=== PATIENT | male | born 1975 | race Caucasian/White ===

== ENCOUNTER 2018-12-20 05:33 | Emergency (ER) | payer OTHER ==
[2018-12-20] MEDS ORDERED: IBUPROFEN 600 MG TAB PO STA (06:18)
[2018-12-20] MEDS ORDERED: amLODIPine 5 MG TAB PO STA (06:20)
[2018-12-20] MEDS: HYDROcodone/APAP 5-325MG 1 EACH TAB PO STA ×2 (06:27→06:32)
[2018-12-20] MEDS ORDERED: LABETALOL SYRINGE 5 MG/ML IVP STA ×2 (07:18→11:04)
--- NOTE | 2018-12-20 07:24 | ED ---
ENT HPI - General Chief complaint: ENT Stated complaint: ENT Time Seen by Provider: 12/20/18 07:08 Source: patient, RN notes reviewed Mode of arrival: ambulatory Limitations: no limitations - History of Present Illness Initial comments: This a 43-year-old male presents emergency Department with chief complaint of right ear pain, bleeding. Patient states that he's had some pressure last few days in the ER states that he goes is from [facility]ERGIES. Patient states he woke up around 2 AM this morning states he noticed some popping sensation states that it started draining. Patient states that it was clear first and then bloody. Patient states it still drinking. Patient still complains of pressure deep inside his right ear. Patient reports no fevers or chills. Patient tells found to be hypertensive states that he used to be on Lotrel states he has not taken medication 2 months. Patient states his blood pressure is more elevated because his white count syndrome and has been taking mdkm-fvk-fqjtipn decongestants. Patient denies chest pain or shortness of breath. Patient denies any abdominal discomfort, back pain. Patient did not take anything for the discomfort at this time. Patient denies any prior sinus or ear surgery. - Related Data Home Medications Medication Instructions Recorded Confirmed [id number] 1 tab PO DAILY 12/20/18 12/20/18 [Excedrin] Loratadine [Claritin] 10 mg PO DAILY 12/20/18 12/20/18 Multi-Symptom Cold (Unknown) 15 ml PO Q8HR 12/20/18 12/20/18 guaiFENesin [Mucinex] 1,200 mg PO BID 12/20/18 12/20/18 Previous Rx's Medication Instructions Recorded Cephalexin [Keflex] 500 mg PO Q6HR #28 cap 12/20/18 Lisinopril 20 mg PO DAILY #30 tab 12/20/18 Allergies Allergy/AdvReac Type Severity Reaction Status Date / Time Penicillins Allergy Unknown Verified 12/20/18 07:44 Childhood Review of Systems ROS Statement: Those systems with pertinent positive or pertinent negative responses have been documented in the HPI. ROS Other: All systems not noted in ROS Statement are negative. Past Medical History Past Medical History: Hypertension History of Any Multi-Drug Resistant Organisms: None Reported Past Surgical History: Hernia Repair Past Psychological History: No Psychological Hx Reported Smoking Status: Never smoker Past Alcohol Use History: None Reported Past Drug Use History: None Reported General Exam Limitations: no limitations General appearance: alert, in no apparent distress Head exam: Present: atraumatic, normocephalic, normal inspection Eye exam: Present: normal appearance, PERRL, EOMI. Absent: scleral icterus, conjunctival injection, periorbital swelling ENT exam: Present: normal oropharynx, mucous membranes moist, normal external ear exam, other (Tenderness diffusely around the ear). Absent: TM's normal bilaterally (Bloody tinged right TM with what appears to be a small perforation) Neck exam: Present: normal inspection, full ROM. Absent: tenderness, meningismus, lymphadenopathy Respiratory exam: Present: normal lung sounds bilaterally. Absent: respiratory distress, wheezes, rales, rhonchi, stridor Cardiovascular Exam: Present: regular rate, normal rhythm, normal heart sounds. Absent: systolic murmur, diastolic murmur, rubs, gallop, clicks GI/Abdominal exam: Present: soft, normal bowel sounds. Absent: distended, tenderness, guarding, rebound, rigid Neurological exam: Present: alert, oriented X3, CN II-XII intact Skin exam: Present: warm, dry, intact, normal color. Absent: rash Course Vital Signs 12/20/18 12/20/18 12/20/18 05:38 05:51 06:00 Temperature 98.5 F Pulse Rate 108 H Respiratory 18 Rate Blood Pressure 259/155 242/155 O2 Sat by Pulse 99 97 96 Oximetry 12/20/18 12/20/18 12/20/18 06:15 06:30 06:45 Temperature Pulse Rate Respiratory Rate Blood Pressure 242/155 242/157 242/157 O2 Sat by Pulse 97 Oximetry 12/20/18 12/20/18 12/20/18 07:00 07:09 07:15 Temperature Pulse Rate Respiratory Rate Blood Pressure 248/148 245/155 250/161 O2 Sat by Pulse Oximetry 12/20/18 12/20/18 12/20/18 07:34 08:45 09:00 Temperature Pulse Rate 89 Respiratory 18 Rate Blood Pressure 242/153 226/146 226/146 O2 Sat by Pulse 100 98 94 L Oximetry 12/20/18 12/20/18 12/20/18 10:30 11:00 11:35 Temperature Pulse Rate 100 95 Respiratory 18 18 Rate Blood Pressure 211/137 211/129 207/138 O2 Sat by Pulse 96 94 L 98 Oximetry Medical Decision Making - Medical Decision Making 43-year-old male presents emergency from for right ear pain. Patient has a ruptured TM, there is evidence of a cholesteatoma. Patient will be started on eardrops, antibiotics. Patient is requesting history antibiotics as he has no current insurance. Patient is an ALLERGY to penicillin started on Keflex. Patient also was found to be hypertensive 260/116. Patient was given multiple medications for his blood pressure which has mildly improved he has no complaints at this time. I did recommend patient to be admitted to the hospital because of his blood pressure. Patient declined states that he wants to go home because he believes this is due to whitecoat syndrome. Patient was given Ativan which did mildly help his blood pressure also. Patient understands the risk that this of his blood pressure being elevated that it can lead to stroke or AR or other health issues including renal disease patient advised to follow- up with PCP and will monitor blood pressure at home. - Lab Data Result diagrams: 12/20/18 07:45 12/20/18 07:45 Lab Results 12/20/18 12/20/18 12/20/18 Range/Units 07:45 07:45 07:45 WBC 11.1 H (3.8-10.6) k/uL RBC 5.96 H (4.30-5.90) m/uL Hgb 16.6 (13.0-17.5) gm/dL Hct 49.6 (39.0-53.0) % MCV 83.1 (80.0-100.0) fL MCH 27.8 (25.0-35.0) pg MCHC 33.4 (31.0-37.0) g/dL RDW 14.8 (11.5-15.5) % Plt Count 187 (150-450) k/uL Neutrophils % 85 % Lymphocytes % 8 % Monocytes % 5 % Eosinophils % 0 % Basophils % 0 % Neutrophils # 9.5 H (1.3-7.7) k/uL Lymphocytes # 0.9 L (1.0-4.8) k/uL Monocytes # 0.6 (0-1.0) k/uL Eosinophils # 0.0 (0-0.7) k/uL Basophils # 0.0 (0-0.2) k/uL Sodium 142 (137-145) mmol/L Potassium 4.2 (3.5-5.1) mmol/L Chloride 101 (98-107) mmol/L Carbon Dioxide 30 (22-30) mmol/L Anion Gap 11 mmol/L BUN 16 (9-20) mg/dL Creatinine 0.90 (0.66-1.25) mg/dL Est GFR (CKD-EPI)AfAm >90 (>60 ml/min/1.73 sqM) Est GFR (CKD-EPI)NonAf >90 (>60 ml/min/1.73 sqM) Glucose 162 H (74-99) mg/dL Calcium 9.4 (8.4-10.2) mg/dL Total Bilirubin 0.7 (0.2-1.3) mg/dL AST 32 (17-59) U/L ALT 44 (21-72) U/L Alkaline Phosphatase 141 H (38-126) U/L Troponin I <0.012 (0.000-0.034) ng/mL Total Protein 8.0 (6.3-8.2) g/dL Albumin 4.9 (3.5-5.0) g/dL Disposition Clinical Impression: Otitis media, serous, TM rupture, Hypertensive urgency Disposition: HOME SELF-CARE Instructions (If sedation given, give patient instructions): Ruptured Eardrum (ED), Hypertensive Crisis (ED) Additional Instructions: Please return to the Emergency Department if symptoms worsen or any other concerns. Prescriptions: Cephalexin [Keflex] 500 mg PO Q6HR #28 cap Lisinopril 20 mg PO DAILY #30 tab Is patient prescribed a controlled substance at d/c from ED?: No Referrals: Jose Akbar MD [Primary Care Provider] - 1-2 days Time of Disposition: 12:22
[2018-12-20 08:14] LABS: Basophils % (A) 0 %; Eosinophils % (A) 0 %; HCT 49.6 % (39.0-53.0); HGB 16.6 gm/dL (13.0-17.5); Lymphocytes # (A) 0.9 k/uL (1.0-4.8); Lymphocytes % (A) 8 %; MCH 27.8 pg (25.0-35.0); MCHC 33.4 g/dL (31.0-37.0); MCV 83.1 fL (80.0-100.0); Mean Platelet Volume 7.1; Monocytes # (A) 0.6 k/uL (0-1.0); Monocytes % (A) 5 %; Neutrophils # (A) 9.5 k/uL (1.3-7.7); Neutrophils % (A) 85 %; Platelet Count 187 k/uL (150-450); RBC 5.96 m/uL (4.30-5.90); RDW 14.8 % (11.5-15.5); WBC 11.1 k/uL (3.8-10.6)
[2018-12-20 08:31] LABS: ALT 44 U/L (21-72); AST 32 U/L (17-59); African American GFR (CKD) >90 (>60 ml/min/1.73 sqM); Albumin 4.9 g/dL (3.5-5.0); Alkaline Phosphatase 141 U/L (38-126); Anion Gap 11 mmol/L; Blood Urea Nitrogen 16 mg/dL (9-20); Calcium 9.4 mg/dL (8.4-10.2); Carbon Dioxide 30 mmol/L (22-30); Chloride 101 mmol/L (98-107); Glucose 162 mg/dL (74-99); Potassium 4.2 mmol/L (3.5-5.1); Sodium 142 mmol/L (137-145); Total Bilirubin 0.7 mg/dL (0.2-1.3)
--- NOTE | 2018-12-20 08:32 | CT ---
EXAMINATION TYPE: CT iac wo con DATE OF EXAM: 12/20/2018 COMPARISON: None HISTORY: 43-year-old male prior fullness, rule out mass. Ear Pain and Bleeding CT DLP: 194 mGycm Automated exposure control for dose reduction was used. TECHNIQUE: Contiguous high-resolution axial scanning of the temporal bones performed without IV cont rast. Coronal reformatted images obtained. FINDINGS: Thin section CT technique shows no gross abnormality of the visualized intracranial structures. Asses sment is limited due to the thin section technique. The external auditory canals are patent. There is complete opacification of the right mesotympanum and infra tympanum. Opacification encases the incus and stapes and the handle of the malleus. Some contiguous opacification extends to involve the adjacent pneumatized petrous apex anteriorly. Bu t otherwise, the left middle ear cavity and bilateral mastoid air cells are well pneumatized. No ossicular erosion. No blunting of the scutum. Opacification extends to the right horizontal portio n of the facial nerve canal. There is no abnormality of bony labyrinths. The vestibular aqueduct are well visualized. The internal auditory canal and meati are symmetrical bilaterally. There is no evidence of fractures. Scattered trace mucosal thickening ethmoid air cells and maxillary sinuses. Reformatted images confirm above findings. IMPRESSION: Complete opacification of the right mesotympanum and infratemporal with encasement of most of the mid dle ear ossicles. No ossicular erosions. There is small amount of contiguous opacification of the adj acent anteriorly pneumatized petrous apex. Correlate for possible etiologies including otitis median cholesteatoma. Otoscopy may be helpful.
[2018-12-20] MEDS ORDERED: hydrALAZINE HCL 20 MG/ML 1 ML VIAL IVP STA (08:50)
[2018-12-20] MEDS ORDERED: LORazepam 2 MG/ML INJ IV STA (10:18)
[2018-12-20] MEDS ORDERED: OFLOXACIN 0.3% OPHTH DROPS 5 ML BOTTLE RIGHT EAR STA (10:18)
[2018-12-20] MEDS ORDERED: SODIUM CHLORIDE 0.9% 500 ML 500 ML IV ONE (11:04)
[2018-12-20 13:01] VITALS: BP 190/92; PULSE 89; RESP 16; TEMP 98.7
== END 2018-12-20 12:59 | disposition home or self-care (01) ==
LOC: EC 05:33
DX: I16.0 Hypertensive urgency (principal); H65.91 Unspecified nonsuppurative otitis media, right ear; H72.91 Unspecified perforation of tympanic membrane, right ear; H71.11 Cholesteatoma of tympanum, right ear; Z88.0 Allergy status to penicillin; Z79.82 Long term (current) use of aspirin; Z79.899 Other long term (current) drug therapy
CPT/HCPCS: 36415; 80053; 84484; 85025; 70480; 99284; 96374; 96375 ×2; 96376; 96361; J2060; J0360

== ENCOUNTER 2020-07-15 02:50 | Emergency (ER) | payer OTHER ==
[2020-07-15] MEDS ORDERED: SODIUM CHLORIDE 0.9% 1,000 ML IV STA ×2 (02:54→03:57)
[2020-07-15] MEDS ORDERED: LABETALOL 5 MG/ML VIAL MDV IVP STA (02:54)
[2020-07-15 03:14] LABS: Glucose,Whole Blood 189 mg/dL (75-99)
--- NOTE | 2020-07-15 03:18 | CT ---
EXAM: CT Head Without Intravenous Contrast CLINICAL HISTORY: ITS.REASON CT Reason: Neuro deficit, acute, stroke suspected TECHNIQUE: Axial computed tomography images of the head/brain without intravenous contrast. CTDI is 64.8 mGy and DLP is 1658 mGy-cm. This CT exam was performed using one or more of the following dose reduction techniques: automated exposure control, adjustment of the mA and/or kV according to patient size, and/or use of iterative reconstruction technique. COMPARISON: No relevant prior studies available. FINDINGS: Brain: No hemorrhage or mass effect. Ventricles: No hydrocephalus. Bones/joints: Unremarkable. Soft tissues: Unremarkable. Sinuses: Unremarkable. Mastoid air cells: Clear. IMPRESSION: No acute hemorrhage, hydrocephalus, or mass effect. <MYCVCSECTION> Communications: 07/15/20 03:41 Call From [facility] on 07/15 03:35 (-05:00)
--- NOTE | 2020-07-15 03:19 | ED ---
Neuro HPI - General Chief Complaint: Neuro Symptoms/Deficit Stated Complaint: Stroke Time Seen by Provider: 07/15/20 02:53 Source: family, EMS, RN notes reviewed, old records reviewed Mode of arrival: EMS Limitations: altered mental status, physical limitation - History of Present Illness Is the patient presenting with stroke symptoms?: Yes Last Known Well Date: 07/14/20 Last Known Well Time: 21:00 -: awoke with symptoms Initial Comments: This is a 44-year-old male with history of high blood pressure maybe some alcoholism coming in for evaluation. History is unclear as patient is here by himself is unable to speak per EMS patient was found on the ground was unable to walk ambulate or speak. Patient himself is unable to provide information here in the ER per EMS patient is unable to move his right side as well as unable to speak Location: speech, dysarthria, right arm, right leg Place: home Severity: severe Quality: constant Improves With: none Worsens With: none On Anticoagulants: No Context: found down Associated Symptoms: denies other symptoms Treatments Prior to Arrival: none - Related Data Home Medications: Home Medications Medication Instructions Recorded Confirmed [id number] 1 tab PO DAILY 12/20/18 12/20/18 [Excedrin] Loratadine [Claritin] 10 mg PO DAILY 12/20/18 12/20/18 Multi-Symptom Cold (Unknown) 15 ml PO Q8HR 12/20/18 12/20/18 guaiFENesin [Mucinex] 1,200 mg PO BID 12/20/18 12/20/18 Previous Rx's Medication Instructions Recorded Cephalexin [Keflex] 500 mg PO Q6HR #28 cap 12/20/18 lisinopriL 20 mg PO DAILY #30 tab 12/20/18 Allergies/Adverse Reactions: Allergies Allergy/AdvReac Type Severity Reaction Status Date / Time Penicillins Allergy Unknown Verified 07/15/20 03:28 Childhood Review of Systems ROS Statement: Those systems with pertinent positive or pertinent negative responses have been documented in the HPI. ROS Other: All systems not noted in ROS Statement are negative. General Exam Limitations: altered mental status, physical limitation General appearance: alert, anxious, in distress Head exam: Present: atraumatic, normocephalic, normal inspection Eye exam: Present: normal appearance, PERRL, EOMI. Absent: scleral icterus, conjunctival injection, periorbital swelling ENT exam: Present: normal exam, mucous membranes moist Neck exam: Present: normal inspection. Absent: tenderness, meningismus, lymphadenopathy Respiratory exam: Present: normal lung sounds bilaterally. Absent: respiratory distress, wheezes, rales, rhonchi, stridor Cardiovascular Exam: Present: regular rate, normal rhythm, normal heart sounds. Absent: systolic murmur, diastolic murmur, rubs, gallop, clicks GI/Abdominal exam: Present: soft, normal bowel sounds. Absent: distended, tenderness, guarding, rebound, rigid Extremities exam: Present: normal inspection, full ROM, normal capillary refill. Absent: tenderness, pedal edema, joint swelling, calf tenderness Back exam: Present: normal inspection Neurological exam: Present: alert, CN II-XII intact, other (A phasic) Psychiatric exam: Present: anxious Skin exam: Present: warm, dry, intact, normal color. Absent: rash Stroke MDM - Lab Data Result diagrams: 07/15/20 03:12 07/15/20 03:13 Lab Results 07/15/20 07/15/20 07/15/20 Range/Units 03:12 03:12 03:13 WBC 11.0 H (3.8-10.6) k/uL RBC 5.56 (4.30-5.90) m/uL Hgb 16.1 (13.0-17.5) gm/dL Hct 46.0 (39.0-53.0) % MCV 82.8 (80.0-100.0) fL MCH 29.0 (25.0-35.0) pg MCHC 35.1 (31.0-37.0) g/dL RDW 12.8 (11.5-15.5) % Plt Count 177 (150-450) k/uL MPV 7.2 Neutrophils % 82 % Lymphocytes % 12 % Monocytes % 4 % Eosinophils % 0 % Basophils % 1 % Neutrophils # 9.1 H (1.3-7.7) k/uL Lymphocytes # 1.3 (1.0-4.8) k/uL Monocytes # 0.5 (0-1.0) k/uL Eosinophils # 0.0 (0-0.7) k/uL Basophils # 0.1 (0-0.2) k/uL PT 10.0 (9.0-12.0) sec INR 0.9 (<1.2) APTT 24.3 (22.0-30.0) sec Sodium (137-145) mmol/L Potassium (3.5-5.1) mmol/L Chloride (98-107) mmol/L Carbon Dioxide (22-30) mmol/L Anion Gap mmol/L BUN (9-20) mg/dL Creatinine (0.66-1.25) mg/dL Est GFR (CKD-EPI)AfAm (>60 ml/min/1.73 sqM) Est GFR (CKD-EPI)NonAf (>60 ml/min/1.73 sqM) Glucose (74-99) mg/dL POC Glucose (mg/dL) 189 H (75-99) mg/dL POC Glu Mrp Controller ID Irving Liao Calcium (8.4-10.2) mg/dL Phosphorus (2.5-4.5) mg/dL Magnesium (1.6-2.3) mg/dL Total Bilirubin (0.2-1.3) mg/dL AST (17-59) U/L ALT (4-49) U/L Alkaline Phosphatase (38-126) U/L Total Protein (6.3-8.2) g/dL Albumin (3.5-5.0) g/dL Serum Alcohol mg/dL 07/15/20 Range/Units 03:13 WBC (3.8-10.6) k/uL RBC (4.30-5.90) m/uL Hgb (13.0-17.5) gm/dL Hct (39.0-53.0) % MCV (80.0-100.0) fL MCH (25.0-35.0) pg MCHC (31.0-37.0) g/dL RDW (11.5-15.5) % Plt Count (150-450) k/uL MPV Neutrophils % % Lymphocytes % % Monocytes % % Eosinophils % % Basophils % % Neutrophils # (1.3-7.7) k/uL Lymphocytes # (1.0-4.8) k/uL Monocytes # (0-1.0) k/uL Eosinophils # (0-0.7) k/uL Basophils # (0-0.2) k/uL PT (9.0-12.0) sec INR (<1.2) APTT (22.0-30.0) sec Sodium 134 L (137-145) mmol/L Potassium 3.8 (3.5-5.1) mmol/L Chloride 100 (98-107) mmol/L Carbon Dioxide 24 (22-30) mmol/L Anion Gap 10 mmol/L BUN 14 (9-20) mg/dL Creatinine 0.72 (0.66-1.25) mg/dL Est GFR (CKD-EPI)AfAm >90 (>60 ml/min/1.73 sqM) Est GFR (CKD-EPI)NonAf >90 (>60 ml/min/1.73 sqM) Glucose 192 H (74-99) mg/dL POC Glucose (mg/dL) (75-99) mg/dL POC Glu Mrp Controller ID Calcium 8.8 (8.4-10.2) mg/dL Phosphorus 3.0 (2.5-4.5) mg/dL Magnesium 1.8 (1.6-2.3) mg/dL Total Bilirubin 0.6 (0.2-1.3) mg/dL AST 30 (17-59) U/L ALT 47 (4-49) U/L Alkaline Phosphatase 115 (38-126) U/L Total Protein 6.8 (6.3-8.2) g/dL Albumin 4.2 (3.5-5.0) g/dL Serum Alcohol <10 mg/dL - NIH Stroke Scale 1a. Level of Consciousness: (0) alert 1b. LOC Questions: (2) answers no questions correctly 1c. LOC Commands: (2) performs no tasks correctly 2. Best Gaze: (0) normal 3. Visual: (0) no visual loss 4. Facial Palsy: (0) normal symmetrical movement 5a. Motor Arm Left: (0) no drift 5b. Motor Arm Right: (4) no movement 6a. Motor Leg Left: (0) no drift 6b. Motor Leg Right: (4) no movement 7. Limb Ataxia: (1) present 1 limb 8. Sensory: (1) mild/moderate sensory loss 9. Best Language: (2) severe aphasia 10. Dysarthria: (1) mild/moderate dysarthria 11. Extinction/Inattention: (0) no abnormality - Thrombolytic Inclusion/Exclusion Thrombolytic Exclusion Criteria: Symptom Onset > 4.5 Hours Thrombolytic Inclusion Criteria: NIH Stroke Scale Deficit, Negative CT Scan for ICH, Age 18 or Older, Glucose of 50-400mg/dl - Medical Decision Making 44 mailed ER for evaluation patient has significant right-sided hemiparesis expressive aphasia and mute. Patient does have left internal carotid artery dissection on blood thinner aspirin with significant history of blood pressure control. Patient will be transferred to [facility] - Radiology Data Radiology results: report reviewed (CT CTA shows left ICA dissection), image reviewed - EKG Data -: EKG Interpreted by Me (EKG shows sinus a 98 VA 158 QRS 94 QTc 474) Past Medical History Past Medical History: Hypertension History of Any Multi-Drug Resistant Organisms: None Reported Past Surgical History: Hernia Repair Past Psychological History: No Psychological Hx Reported Past Alcohol Use History: None Reported Past Drug Use History: None Reported Course Vital Signs 07/15/20 07/15/20 07/15/20 02:57 03:00 03:15 Temperature 97.5 F L Pulse Rate 87 110 H 93 Respiratory 16 23 20 Rate Blood Pressure 170/140 220/133 243/143 O2 Sat by Pulse 97 96 97 Oximetry 07/15/20 07/15/20 07/15/20 03:16 03:30 03:45 Temperature 97.7 F Pulse Rate 99 92 89 Respiratory 18 18 18 Rate Blood Pressure 243/143 214/137 221/143 O2 Sat by Pulse 95 92 L 95 Oximetry - Reevaluation(s) Reevaluation #1: 07/15/20 03:58 Medical record is reviewed 07/15/20 03:59 Code stroke paged on patient arrival to the ED Reevaluation #2: 07/15/20 03:58 Patient showing no clinical improvement here in the emergency department Reevaluation #3: 07/15/20 04:00 Patient will be given no TPA secondary to left internal artery dissection - Consultations Consultation #1: Spoke with on-call neuro interventional us regarding CTA CT findings, patient d oes not have evidence of clot or brain damage, bleeding but does have significant left internal carotid artery dissection Advocating for brilinta aspirin and blood pressure control, no heparin Consultation #2: Spoke with [facility] accepts transfer Critical Care Time Critical Care Time: Yes Total Critical Care Time: 65 Disposition Clinical Impression: Cerebrovascular accident (CVA), Internal carotid artery dissection, Hypertensive emergency Narrative: Left ICA Dissection Disposition: OTHER INSTITUTION NOT DEFINED Condition: Critical Is patient prescribed a controlled substance at d/c from ED?: No Referrals: None,Stated [Primary Care Provider] - 1-2 days - Out of Hospital Transfer - Req. Specs Out of Hospital Transfer - Requested Specifics: Other Emergency Center ([facility])
--- NOTE | 2020-07-15 03:20 | CT ---
EXAM: CT Angiography Head With Intravenous Contrast CLINICAL HISTORY: ITS.REASON CT Reason: Neuro deficit, acute, stroke suspected TECHNIQUE: Axial computed tomographic angiography images of the head with intravenous contrast. CTDI is 94.57 mGy and DLP is 2728.8 mGy-cm. This CT exam was performed using one or more of the following dose reduction techniques: automated exposure control, adjustment of the mA and/or kV according to patient size, and/or use of iterative reconstruction technique. MIP reconstructed images were created and reviewed. COMPARISON: No relevant prior studies available. FINDINGS: Right internal carotid artery: Intracranial segment is patent with no significant stenosis. No aneurysm. Right anterior cerebral artery: No occlusion or significant stenosis. No aneurysm. Right middle cerebral artery: No occlusion or significant stenosis. No aneurysm. Right posterior cerebral artery: No occlusion or significant stenosis. No aneurysm. Right vertebral artery: Unremarkable. Left internal carotid artery: Intracranial segment is patent with no significant stenosis. No aneurysm. Left anterior cerebral artery: No occlusion or significant stenosis. No aneurysm. Left middle cerebral artery: No occlusion or significant stenosis. No aneurysm. Left posterior cerebral artery: No occlusion or significant stenosis. No aneurysm. Left vertebral artery: Unremarkable. Basilar artery: No occlusion or significant stenosis. No aneurysm. IMPRESSION: No significant stenosis. EXAM: CT Angiography Neck With Intravenous Contrast CLINICAL HISTORY: ITS.REASON CT Reason: Neuro deficit, acute, stroke suspected TECHNIQUE: Axial computed tomographic angiography images of the neck with intravenous contrast. CTDI is 94.57 mGy and DLP is 2728.8 mGy-cm. This CT exam was performed using one or more of the following dose reduction techniques: automated exposure control, adjustment of the mA and/or kV according to patient size, and/or use of iterative reconstruction technique. MIP reconstructed images were created and reviewed. COMPARISON: No relevant prior studies available. FINDINGS: VASCULATURE: Right common carotid artery: No significant stenosis. No dissection. Right internal carotid artery: Extracranial has no significant stenosis. No dissection. Right vertebral artery: No significant stenosis. No dissection. Left common carotid artery: No significant stenosis. No dissection. Left internal carotid artery: Becomes moderately narrowed proximal to mid segment and eventually loses contrast enhancement until the entrance to the carotid canal where there is reconstitution of flow. Left vertebral artery: No significant stenosis. No dissection. NECK: Bones/joints: No acute fracture. No dislocation. CAROTID STENOSIS REFERENCE USING NASCET CRITERIA: % ICA stenosis = (1 - narrowest ICA diameter/diameter of distal cervical ICA) x 100. Mild - <50% stenosis. Moderate - 50-69% stenosis. Severe - 70-94% stenosis. Near occlusion - 95-99% stenosis. Occluded - 100% stenosis. IMPRESSION: Abnormal appearing left ICA where the vessel Becomes moderately narrowed proximal to mid segment and eventually loses contrast enhancement until the entrance to the carotid canal where there is reconstitution of flow. Suspicious for dissection. <MYCVCSECTION> Communications: 07/15/20 03:23 Call Doctor Regarding Above results, called Dr. Sheriff on 07/15 03:23 (-05:00)
--- NOTE | 2020-07-15 03:26 | XR ---
EXAM: XR Chest, 1 View CLINICAL HISTORY: ITS.REASON XR Reason: altered mental status TECHNIQUE: Frontal view of the chest. COMPARISON: No relevant prior studies available. IMPRESSION: Cardiomegaly. No effusion. Slightly prominent airway markings in the left lung, and slightly increased right infrahilar opacity cannot exclude infectious/inflammatory process.
[2020-07-15] MEDS ORDERED: ASPIRIN 81 MG PO STA (03:33)
[2020-07-15] MEDS ORDERED: TICAGRELOR 90 MG TAB PO STA (03:33)
[2020-07-15 03:41] LABS: Basophils # (A) 0.1 k/uL (0-0.2); Basophils % (A) 1 %; Eosinophils % (A) 0 %; HGB 16.1 gm/dL (13.0-17.5); Lymphocytes # (A) 1.3 k/uL (1.0-4.8); Lymphocytes % (A) 12 %; MCHC 35.1 g/dL (31.0-37.0); MCV 82.8 fL (80.0-100.0); Mean Platelet Volume 7.2; Monocytes # (A) 0.5 k/uL (0-1.0); Monocytes % (A) 4 %; Neutrophils # (A) 9.1 k/uL (1.3-7.7); Neutrophils % (A) 82 %; Platelet Count 177 k/uL (150-450); RBC 5.56 m/uL (4.30-5.90); RDW 12.8 % (11.5-15.5)
[2020-07-15] MEDS: CLEVIDIPINE BUTYRATE 25 MG in EMPTY BAG 1 BAG IV SCH ×2 (03:47→05:22)
[2020-07-15 03:52] LABS: INR 0.9 (<1.2); Partial Thromboplastin Time 24.3 sec (22.0-30.0)
[2020-07-15 03:55] LABS: ALT 47 U/L (4-49); AST 30 U/L (17-59); African American GFR (CKD) >90 (>60 ml/min/1.73 sqM); Albumin 4.2 g/dL (3.5-5.0); Alcohol <10 mg/dL; Alkaline Phosphatase 115 U/L (38-126); Anion Gap 10 mmol/L; Blood Urea Nitrogen 14 mg/dL (9-20); Calcium 8.8 mg/dL (8.4-10.2); Carbon Dioxide 24 mmol/L (22-30); Chloride 100 mmol/L (98-107); Glucose 192 mg/dL (74-99); Magnesium 1.8 mg/dL (1.6-2.3); Non-African American GFR(CKD) >90 (>60 ml/min/1.73 sqM); Potassium 3.8 mmol/L (3.5-5.1); Sodium 134 mmol/L (137-145); Total Bilirubin 0.6 mg/dL (0.2-1.3); Total Protein 6.8 g/dL (6.3-8.2)
[2020-07-15] MEDS ORDERED: ASPIRIN 600 MG SUPP RECTAL STA (04:03)
[2020-07-15 04:16] VITALS: RESP 18
[2020-07-15 05:16] VITALS: BP 170/107
[2020-07-15 05:22] VITALS: PULSE 105; TEMP 97.7
== END 2020-07-15 05:30 | disposition other institution (70) ==
LOC: EC 02:50
DX: I63.9 Cerebral infarction, unspecified (principal); I77.71 Dissection of carotid artery; I16.1 Hypertensive emergency; I10 Essential (primary) hypertension; Z79.82 Long term (current) use of aspirin; Z79.899 Other long term (current) drug therapy; Z88.0 Allergy status to penicillin
CPT/HCPCS: 36415; 93005; 80053; 83735; 84100; 84484; 85025; 85610; 85730; 71045; 70496; 70450; 70498; 99291; 96374; 96375; 96361 ×2; G0480; C9248; Q9967; 80320

== ENCOUNTER 2020-08-13 17:55 | Emergency (ER) | payer OTHER ==
[2020-08-13 18:01] VITALS: RESP 18; TEMP 98
[2020-08-13 18:16] LABS: Glucose,Whole Blood 142 mg/dL (75-99)
--- NOTE | 2020-08-13 18:19 | ED ---
General Adult HPI - General Chief complaint: Neuro Symptoms/Deficit Stated complaint: facial numbness Time Seen by Provider: 08/13/20 18:09 Source: patient, family, RN notes reviewed, old records reviewed Mode of arrival: ambulatory Limitations: no limitations - History of Present Illness Initial comments: 44-year-old male with recent stroke requiring intervention presenting with left facial numbness which began at 2 PM yesterday. He is seeking medical attention at 6 PM. This is greater than 24 hours. 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 He has regained full function of the right side of his body. He does have some word finding difficulty according to his . Over the past 28 hours the patient has noted left facial numbness and is seeking medical attenti on. He has no weakness. No worsening in his speech. He denies chest pain or dyspnea. Denies headache. Denies any limb weakness or numbness. - Related Data Home Medications Medication Instructions Recorded Confirmed Aspirin EC [Ecotrin Low Dose] 81 mg PO DAILY@1200 08/13/20 08/13/20 Atorvastatin Calcium [Lipitor] 80 mg PO HS 08/13/20 08/13/20 Carvedilol [Coreg] 25 mg PO BID 08/13/20 08/13/20 NIFEdipine [NIFEdipine ER] 90 mg PO DAILY@1200 08/13/20 08/13/20 Ticagrelor [Brilinta] 90 mg PO BID 08/13/20 08/13/20 lisinopriL 20 mg PO BID PRN 08/13/20 08/13/20 Allergies Allergy/AdvReac Type Severity Reaction Status Date / Time Penicillins Allergy Unknown Verified 08/13/20 19:44 Childhood Review of Systems ROS Statement: Those systems with pertinent positive or pertinent negative responses have been documented in the HPI. ROS Other: All systems not noted in ROS Statement are negative. Past Medical History Past Medical History: CVA/TIA, Hypertension History of Any Multi-Drug Resistant Organisms: None Reported Past Surgical History: Hernia Repair Additional Past Surgical History / Comment(s): brain thombectomy, possible stent in brain Past Psychological History: No Psychological Hx Reported Smoking Status: Never smoker Past Alcohol Use History: None Reported Past Drug Use History: None Reported General Exam Limitations: no limitations General appearance: alert, in no apparent distress Head exam: Present: atraumatic, normocephalic Eye exam: Present: normal appearance, PERRL ENT exam: Present: normal exam Neck exam: Present: normal inspection. Absent: tenderness, meningismus Respiratory exam: Present: normal lung sounds bilaterally. Absent: respiratory distress, wheezes Cardiovascular Exam: Present: regular rate, normal rhythm GI/Abdominal exam: Present: soft. Absent: distended, tenderness Extremities exam: Present: normal inspection, normal capillary refill. Absent: pedal edema, calf tenderness Neurological exam: Present: alert, oriented X3, motor sensory deficit (NIH of 1, numbness to the left side of face, no weakness.) Psychiatric exam: Present: normal affect, normal mood Skin exam: Present: warm, dry, intact. Absent: cyanosis, diaphoretic Course Vital Signs 08/13/20 08/13/20 17:58 19:13 Temperature 98 F Pulse Rate 80 81 Respiratory 18 18 Rate Blood Pressure 172/94 177/98 O2 Sat by Pulse 98 98 Oximetry EKG Findings - EKG Comments: EKG Findings:: EKG: Normal sinus rhythm, LVH, rate of 87, [place] interval 138, QRS d uration 100, QTC 442 Medical Decision Making - Medical Decision Making 44-year-old male presenting with left facial numbness over the past 26 hours. Recent history of right-sided stroke. Patient is on 2 antiplatelet therapy, statin, and blood pressure medication. He has no facial weakness. He does have some mild expressive aphasia which has been baseline after his stroke from one month ago. No acute change. He has no limb weakness. His symptoms began yesterday afternoon and the patient is not a candidate for intervention or TPA. I did obtain a both the CT and CT angiography which are negative. He has normal CBC, normal CMP. I discussed case with Dr. Lilly who will admit with neurology on consult. - Lab Data Result diagrams: 08/13/20 18:14 08/13/20 18:14 Lab Results 08/13/20 08/13/20 08/13/20 Range/Units 18:14 18:14 18:14 WBC 11.7 H (3.8-10.6) k/uL RBC 5.34 (4.30-5.90) m/uL Hgb 15.7 (13.0-17.5) gm/dL Hct 44.9 (39.0-53.0) % MCV 84.1 (80.0-100.0) fL MCH 29.3 (25.0-35.0) pg MCHC 34.9 (31.0-37.0) g/dL RDW 13.3 (11.5-15.5) % Plt Count 271 (150-450) k/uL MPV 7.1 Neutrophils % 74 % Lymphocytes % 18 % Monocytes % 5 % Eosinophils % 1 % Basophils % 1 % Neutrophils # 8.7 H (1.3-7.7) k/uL Lymphocytes # 2.1 (1.0-4.8) k/uL Monocytes # 0.5 (0-1.0) k/uL Eosinophils # 0.2 (0-0.7) k/uL Basophils # 0.1 (0-0.2) k/uL PT 9.6 (9.0-12.0) sec INR 0.9 (<1.2) APTT 24.3 (22.0-30.0) sec Sodium 141 (137-145) mmol/L Potassium 4.1 (3.5-5.1) mmol/L Chloride 102 (98-107) mmol/L Carbon Dioxide 25 (22-30) mmol/L Anion Gap 14 mmol/L BUN 18 (9-20) mg/dL Creatinine 0.85 (0.66-1.25) mg/dL Est GFR (CKD-EPI)AfAm >90 (>60 ml/min/1.73 sqM) Est GFR (CKD-EPI)NonAf >90 (>60 ml/min/1.73 sqM) Glucose 149 H (74-99) mg/dL POC Glucose (mg/dL) (75-99) mg/dL POC Glu [employer] Writer ID Calcium 9.9 (8.4-10.2) mg/dL Total Bilirubin 0.7 (0.2-1.3) mg/dL AST 31 (17-59) U/L ALT 49 (4-49) U/L Alkaline Phosphatase 154 H (38-126) U/L Troponin I (0.000-0.034) ng/mL Total Protein 8.4 H (6.3-8.2) g/dL Albumin 5.1 H (3.5-5.0) g/dL 08/13/20 08/13/20 Range/Units 18:14 18:14 WBC (3.8-10.6) k/uL RBC (4.30-5.90) m/uL Hgb (13.0-17.5) gm/dL Hct (39.0-53.0) % MCV (80.0-100.0) fL MCH (25.0-35.0) pg MCHC (31.0-37.0) g/dL RDW (11.5-15.5) % Plt Count (150-450) k/uL MPV Neutrophils % % Lymphocytes % % Monocytes % % Eosinophils % % Basophils % % Neutrophils # (1.3-7.7) k/uL Lymphocytes # (1.0-4.8) k/uL Monocytes # (0-1.0) k/uL Eosinophils # (0-0.7) k/uL Basophils # (0-0.2) k/uL PT (9.0-12.0) sec INR (<1.2) APTT (22.0-30.0) sec Sodium (137-145) mmol/L Potassium (3.5-5.1) mmol/L Chloride (98-107) mmol/L Carbon Dioxide (22-30) mmol/L Anion Gap mmol/L BUN (9-20) mg/dL Creatinine (0.66-1.25) mg/dL Est GFR (CKD-EPI)AfAm (>60 ml/min/1.73 sqM) Est GFR (CKD-EPI)NonAf (>60 ml/min/1.73 sqM) Glucose (74-99) mg/dL POC Glucose (mg/dL) 142 H (75-99) mg/dL POC Glu Television [employer] Writer ID Isauro Staton Calcium (8.4-10.2) mg/dL Total Bilirubin (0.2-1.3) mg/dL AST (17-59) U/L ALT (4-49) U/L Alkaline Phosphatase (38-126) U/L Troponin I <0.012 (0.000-0.034) ng/mL Total Protein (6.3-8.2) g/dL Albumin (3.5-5.0) g/dL Disposition Clinical Impression: Cerebrovascular accident (CVA) Disposition: ADMITTED IP TO THIS HOSP Condition: Stable Is patient prescribed a controlled substance at d/c from ED?: No Referrals: Wilder Clements MD [Primary Care Provider] - 1-2 days Decision to Admit Reason: Admit from EC Decision Date: 08/13/20 Decision Time: 20:10
[2020-08-13 18:25] LABS: Basophils # (A) 0.1 k/uL (0-0.2); Basophils % (A) 1 %; Eosinophils # (A) 0.2 k/uL (0-0.7); Eosinophils % (A) 1 %; HCT 44.9 % (39.0-53.0); HGB 15.7 gm/dL (13.0-17.5); Lymphocytes # (A) 2.1 k/uL (1.0-4.8); Lymphocytes % (A) 18 %; MCH 29.3 pg (25.0-35.0); MCHC 34.9 g/dL (31.0-37.0); MCV 84.1 fL (80.0-100.0); Mean Platelet Volume 7.1; Monocytes # (A) 0.5 k/uL (0-1.0); Monocytes % (A) 5 %; Neutrophils # (A) 8.7 k/uL (1.3-7.7); Neutrophils % (A) 74 %; Platelet Count 271 k/uL (150-450); RBC 5.34 m/uL (4.30-5.90); RDW 13.3 % (11.5-15.5); WBC 11.7 k/uL (3.8-10.6)
[2020-08-13 18:33] LABS: ALT 49 U/L (4-49); AST 31 U/L (17-59); African American GFR (CKD) >90 (>60 ml/min/1.73 sqM); Albumin 5.1 g/dL (3.5-5.0); Alkaline Phosphatase 154 U/L (38-126); Anion Gap 14 mmol/L; Blood Urea Nitrogen 18 mg/dL (9-20); Calcium 9.9 mg/dL (8.4-10.2); Carbon Dioxide 25 mmol/L (22-30); Chloride 102 mmol/L (98-107); Glucose 149 mg/dL (74-99); Non-African American GFR(CKD) >90 (>60 ml/min/1.73 sqM); Potassium 4.1 mmol/L (3.5-5.1); Sodium 141 mmol/L (137-145); Total Bilirubin 0.7 mg/dL (0.2-1.3); Total Protein 8.4 g/dL (6.3-8.2)
[2020-08-13 18:35] LABS: INR 0.9 (<1.2); Partial Thromboplastin Time 24.3 sec (22.0-30.0); Prothrombin Time 9.6 sec (9.0-12.0)
--- NOTE | 2020-08-13 18:46 | CT ---
EXAMINATION TYPE: CT brain wo con for TPA DATE OF EXAM: 08/13/2020 COMPARISON: 07/15/2020. HISTORY: left side facial numbness CT DLP: 1089 mGycm Automated exposure control for dose reduction was used. FINDINGS: There is no acute intracranial hemorrhage, mass effect, or midline shift identified. The ventricles and sulci are within normal limits in size. The globes are intact and the visualized sinuses are vivienne ar. IMPRESSION: No acute intracranial hemorrhage, mass effect, or midline shift is seen.
--- NOTE | 2020-08-13 18:47 | XR ---
EXAMINATION TYPE: XR chest 2V DATE OF EXAM: 08/13/2020 COMPARISON: 07/15/2020. HISTORY: Altered mental status. TECHNIQUE: Frontal and lateral views of the chest are obtained. FINDINGS: There is no focal air space opacity, pleural effusion, or pneumothorax seen. The cardiac silhouette size is within normal limits. The osseous structures are intact. IMPRESSION: No acute cardiopulmonary process.
--- NOTE | 2020-08-13 20:07 | CT ---
EXAMINATION TYPE: CT angio head neck DATE OF EXAM: 08/13/2020 HISTORY: left side facial numbness COMPARISON: 07/15/2020. CT DLP: 512.3 mGycm. Automated Exposure Control for Dose Reduction was Utilized. TECHNIQUE: CTA scan of the head and neck is performed with IV Contrast, patient injected with 65 mL of Isovue 370, axial images are obtained, coronal and sagittal reformatted images are reviewed. Three -D reconstructed images are created on an independent workstation and reviewed. FINDINGS: Carotid/Vascular Structures: No evidence of occlusion or significant stenosis of the cervical caroti d or vertebral arteries as well the intracranial arteries. No evidence of aneurysm. Left dominant davin tebral artery is seen. Other: None. IMPRESSION: No significant abnormality is seen.
[2020-08-13] MEDS ORDERED: lisinopriL 20 MG TAB PO PRN (20:09)
[2020-08-13] MEDS ORDERED: SODIUM CHLORIDE 0.9% 1,000 ML IV SCH (20:15)
[2020-08-13] MEDS ORDERED: TICAGRELOR 90 MG TAB PO SCH (21:00)
[2020-08-13] MEDS ORDERED: ATORVASTATIN 80 MG TAB PO SCH (21:00)
[2020-08-13] MEDS ORDERED: carvediloL 12.5 MG TAB PO SCH (21:00)
[2020-08-13 21:12] VITALS: BP 165/101; PULSE 68
[2020-08-14] MEDS ORDERED: ASPIRIN 81 MG PO SCH (12:00)
[2020-08-14] MEDS ORDERED: NIFEdipine XL 90 MG TAB.ER.24 PO SCH (12:00)
== END 2020-08-13 20:57 | disposition home or self-care (01) ==
LOC: EC 17:55 → 3SCARD 20:08 → UNDOADMIN 20:08 → EC 20:57
DX: I63.9 Cerebral infarction, unspecified (principal); R47.01 Aphasia; I10 Essential (primary) hypertension; Z79.82 Long term (current) use of aspirin; Z79.899 Other long term (current) drug therapy; Z88.0 Allergy status to penicillin; Z86.73 Personal history of transient ischemic attack (TIA), and cerebral infarction without residual deficits
CPT/HCPCS: 36415; 93005; 80053; 84484; 85025; 85610; 85730; 71046; 70496; 70450; 70498; 99285; Q9967

== ENCOUNTER 2020-09-13 17:14 | Emergency (ER) | payer OTHER ==
[2020-09-13 17:20] VITALS: BP 186/100; PULSE 111; RESP 18; TEMP 97.9
[2020-09-13] MEDS ORDERED: LIDOCAINE 1%-EPI 1:100,000 20 ML VIAL SQ STA (17:39)
--- NOTE | 2020-09-13 18:08 | ED ---
ENT HPI - General Chief complaint: ENT Stated complaint: Tongue bite - on blood thinners Time Seen by Provider: 09/13/20 17:33 Source: patient Mode of arrival: ambulatory Limitations: no limitations - History of Present Illness Initial comments: 44-year-old male patient presents to the emergency department today for evaluation of bleeding wound to the tongue. Patient states around 4:00 this afternoon he was eating when he actually bit his tongue. Patient states he is does take a blood thinning medication after having a stroke 2 months ago. He is unable to get the bleeding to stop so presented here for further evaluation. He does have pain to the tongue. He states he tried ice water and holding pressure did not help. Denies any dizziness or weakness. Denies any syncope or fainting. - Related Data Home Medications Medication Instructions Recorded Confirmed Aspirin EC [Ecotrin Low Dose] 81 mg PO DAILY@1200 08/13/20 08/13/20 Atorvastatin Calcium [Lipitor] 80 mg PO HS 08/13/20 08/13/20 Carvedilol [Coreg] 25 mg PO BID 08/13/20 08/13/20 NIFEdipine [NIFEdipine ER] 90 mg PO DAILY@1200 08/13/20 08/13/20 Ticagrelor [Brilinta] 90 mg PO BID 08/13/20 08/13/20 lisinopriL 20 mg PO BID PRN 08/13/20 08/13/20 Allergies Allergy/AdvReac Type Severity Reaction Status Date / Time Penicillins Allergy Unknown Verified 09/13/20 17:20 Childhood Review of Systems ROS Statement: Those systems with pertinent positive or pertinent negative responses have been documented in the HPI. ROS Other: All systems not noted in ROS Statement are negative. Past Medical History Past Medical History: CVA/TIA, Hypertension History of Any Multi-Drug Resistant Organisms: None Reported Past Surgical History: Hernia Repair Additional Past Surgical History / Comment(s): brain thombectomy, possible stent in brain Past Psychological History: No Psychological Hx Reported Smoking Status: Never smoker Past Alcohol Use History: None Reported Past Drug Use History: None Reported General Exam Limitations: no limitations General appearance: alert, in no apparent distress ENT exam: Present: mucous membranes moist, other (His bleeding wound noted to the right lateral tongue. Mild oozing.) Respiratory exam: Present: normal lung sounds bilaterally. Absent: respiratory distress, wheezes, rales, rhonchi, stridor Cardiovascular Exam: Present: regular rate, normal rhythm, normal heart sounds. Absent: systolic murmur, diastolic murmur, rubs, gallop, clicks Neurological exam: Present: alert, oriented X3, CN II-XII intact Psychiatric exam: Present: normal affect, normal mood Skin exam: Present: warm, dry, intact, normal color. Absent: rash Course Vital Signs 09/13/20 09/13/20 17:18 18:14 Temperature 97.9 F 97.9 F Pulse Rate 111 H 111 H Respiratory 18 18 Rate Blood Pressure 186/100 186/100 O2 Sat by Pulse 97 97 Oximetry Procedures - Laceration Laceration #1 Consent Obtained: verbal consent Indication: laceration Site: oral (Tongue) Size (cm): 1 Anesthetic Used: lidocaine 1%, with epi Anesthesia Technique: local infiltration Patient Tolerated Procedure: well, no complications Additional Comments: Utilize medication to stop bleeding only. No sutures were placed Medical Decision Making - Medical Decision Making 44-year-old male patient presents to the emergency department today for evaluation of bleeding wound to the tongue. He does take blood thinners is unable to get the bleeding to stop. Physical examination did reveal a 1 cm laceration to the right lateral tongue. I did infiltrate the area utilizing lidocaine with epinephrine. After 5 minutes the bleeding stopped completely. He was able to tolerate oral intake without rebleeding. He'll be discharged pop his primary care physician for recheck in 1-2 days. Return parameters were discussed in detail. He verbalizes understanding and agrees with this plan. My attending is Dr. Gregorio. Disposition Clinical Impression: Tongue injury Disposition: HOME SELF-CARE Condition: Good Instructions (If sedation given, give patient instructions): Blood Thinners (ED) Additional Instructions: If bleeding restarts apply ice or hold pressure for at least 20 minutes without stopping. If bleeding continues you can return to the emergency department for reevaluation. Follow up with her primary care physician for recheck in 1-2 days. Return to the emergency department for any new, worsening, or concerning symptoms Is patient prescribed a controlled substance at d/c from ED?: No Referrals: Wilder Clements MD [Primary Care Provider] - 1-2 days Time of Disposition: 18:08
== END 2020-09-13 18:15 | disposition home or self-care (01) ==
LOC: EC 17:14
DX: S09.93XA Unspecified injury of face, initial encounter (principal); I10 Essential (primary) hypertension; Z79.82 Long term (current) use of aspirin; Z86.73 Personal history of transient ischemic attack (TIA), and cerebral infarction without residual deficits; Z88.0 Allergy status to penicillin; X58.XXXA Exposure to other specified factors, initial encounter
CPT/HCPCS: 12011; 99282

== ENCOUNTER 2020-09-14 08:04 | Emergency (ER) | payer OTHER ==
[2020-09-14 08:08] VITALS: BP 163/95; PULSE 81; RESP 16; TEMP 97.9
--- NOTE | 2020-09-14 08:24 | ED ---
ENT HPI - General Chief complaint: Dental/Oral Stated complaint: Revisit - tongue bleed, blood thinners Time Seen by Provider: 09/14/20 08:05 Source: patient Mode of arrival: ambulatory Limitations: no limitations - History of Present Illness Initial comments: Patient is a 44-year-old male with past medical history of CVA on Brilinta who presents to the emergency department with reported bleeding from his tongue. Patient was seen in the emergency department yesterday for similar complaint. States that he bit the right side of his tongue accidentally while eating around 4 PM. He cannot get the bleeding to stop and therefore came into the emergency department. His tongue was injected with lidocaine with epinephrine. Patient reports to improvement in his bleeding last night. He is unsure if he bit his tongs throughout the night because he woke up this morning and did have some bright red blood coming from his mouth. Patient immediately came back into the emergency room for reevaluation. Patient continues to have pain at the site. He has continued to take his anticoagulation as directed. - Related Data Home Medications Medication Instructions Recorded Confirmed Aspirin EC [Ecotrin Low Dose] 81 mg PO DAILY@1200 08/13/20 08/13/20 Atorvastatin Calcium [Lipitor] 80 mg PO HS 08/13/20 08/13/20 Carvedilol [Coreg] 25 mg PO BID 08/13/20 08/13/20 NIFEdipine [NIFEdipine ER] 90 mg PO DAILY@1200 08/13/20 08/13/20 Ticagrelor [Brilinta] 90 mg PO BID 08/13/20 08/13/20 lisinopriL 20 mg PO BID PRN 08/13/20 08/13/20 Allergies Allergy/AdvReac Type Severity Reaction Status Date / Time Penicillins Allergy Unknown Verified 09/16/20 20:31 Childhood Review of Systems ROS Statement: Those systems with pertinent positive or pertinent negative responses have been documented in the HPI. ROS Other: All systems not noted in ROS Statement are negative. Past Medical History Past Medical History: CVA/TIA, Hypertension History of Any Multi-Drug Resistant Organisms: None Reported Past Surgical History: Hernia Repair Additional Past Surgical History / Comment(s): brain thombectomy, possible stent in brain Past Psychological History: No Psychological Hx Reported Smoking Status: Never smoker Past Alcohol Use History: None Reported Past Drug Use History: None Reported General Exam Limitations: no limitations General appearance: alert, in no apparent distress Eye exam: Present: normal appearance, PERRL, EOMI. Absent: scleral icterus, conjunctival injection, periorbital swelling ENT exam: Present: mucous membranes moist, other (granulation tissue formation, right lateral tongue. No active bleeding from area of disruption. no gapping laceration) Course Vital Signs 09/14/20 08:06 Temperature 97.9 F Pulse Rate 81 Respiratory 16 Rate Blood Pressure 163/95 O2 Sat by Pulse 99 Oximetry Medical Decision Making - Medical Decision Making Upon arrival patient was placed into room 15. A thorough history and physical exam is performed. Examination reveals injury to the right side of the patient's tongue which is in partial's stages of healing. Granulation tissue present. No active bleeding at this time. No prominent vasculature. I di scussed the diagnosis and treatment options. At this time as there is no active bleeding no treatment will be performed. Healing identified. Patient instructed to continue taking his Brilinta. Avoid any new trauma. Follow up with his primary care doctor in 2-4 days. Return to the emergency department for any new or worsening symptoms he should agree to this and was discharged home in stable condition Disposition Clinical Impression: Tongue injury Disposition: HOME SELF-CARE Condition: Stable Instructions (If sedation given, give patient instructions): Blood Thinners (ED) Additional Instructions: Attempt to reduce any trauma to the area. Follow up with your doctor in 2-4 days. Continue taking your Brilinta. Return to the ED for any new or worsening symptoms. Is patient prescribed a controlled substance at d/c from ED?: No Referrals: Wilder Clements MD [Primary Care Provider] - 1-2 days Time of Disposition: 08:24
== END 2020-09-14 08:29 | disposition home or self-care (01) ==
LOC: EC 08:04
DX: S09.93XD Unspecified injury of face, subsequent encounter (principal); I10 Essential (primary) hypertension; L92.9 Granulomatous disorder of the skin and subcutaneous tissue, unspecified; Z79.82 Long term (current) use of aspirin; Z79.899 Other long term (current) drug therapy; Z88.0 Allergy status to penicillin; Z86.73 Personal history of transient ischemic attack (TIA), and cerebral infarction without residual deficits; X58.XXXD Exposure to other specified factors, subsequent encounter
CPT/HCPCS: 99283

== ENCOUNTER 2020-09-14 21:31 | Emergency (ER) | payer OTHER ==
[2020-09-14 21:36] VITALS: BP 197/116; PULSE 80; RESP 18; TEMP 97.9
[2020-09-14] MEDS ORDERED: LIDOCAINE 1%-EPI 1:100,000 20 ML VIAL SQ STA (21:55)
--- NOTE | 2020-09-14 22:23 | ED ---
Recheck HPI - General Chief Complaint: Recheck/Abnormal Lab/Rx Stated Complaint: Tongue injury, bleeding Time Seen by Provider: 09/14/20 21:40 Source: patient Mode of arrival: ambulatory Limitations: no limitations - History of Present Illness Initial Comments: Patient is a 44-year-old male presenting to the emergency Department for recheck of his tongue. Patient was seen yesterday and again this morning after he bit his tongue and has been having bleeding issues. He is on a blood thinner. Patient was initially injected with lidocaine and epi to control the bleeding. He had a recheck this morning because it started oozing again however he was not having any active bleeding. Patient states he was doing well until he was eating dinner and then sneeze and started using again. He denies any fever or chills. He denies any other changes. He has no further complaints. Patient's blood pressure is high upon arrival, patient states he does have white coat syndrome, he monitors his blood pressure daily at home and today it was 134/86. - Related Data Home Medications Medication Instructions Recorded Confirmed Aspirin EC [Ecotrin Low Dose] 81 mg PO DAILY@1200 08/13/20 08/13/20 Atorvastatin Calcium [Lipitor] 80 mg PO HS 08/13/20 08/13/20 Carvedilol [Coreg] 25 mg PO BID 08/13/20 08/13/20 NIFEdipine [NIFEdipine ER] 90 mg PO DAILY@1200 08/13/20 08/13/20 Ticagrelor [Brilinta] 90 mg PO BID 08/13/20 08/13/20 lisinopriL 20 mg PO BID PRN 08/13/20 08/13/20 Allergies Allergy/AdvReac Type Severity Reaction Status Date / Time Penicillins Allergy Unknown Verified 09/14/20 21:36 Childhood Review of Systems ROS Statement: Those systems with pertinent positive or pertinent negative responses have been documented in the HPI. ROS Other: All systems not noted in ROS Statement are negative. Past Medical History Past Medical History: CVA/TIA, Hypertension History of Any Multi-Drug Resistant Organisms: None Reported Past Surgical History: Hernia Repair Additional Past Surgical History / Comment(s): brain thombectomy, possible stent in brain Past Psychological History: No Psychological Hx Reported Smoking Status: Never smoker Past Alcohol Use History: None Reported Past Drug Use History: None Reported General Exam - General Exam Comments Initial Comments: GENERAL: Patient is well-developed and well-nourished. Patient is nontoxic and in no acute distress. HEAD: Atraumatic, normocephalic. EYES: Pupils equal round and reactive to light, extraocular movements intact, sclera anicteric, conjunctiva are normal. Eyelids were unremarkable. ENT: Nares patent, oropharynx clear without exudates. Moist mucous membranes. Tong ue has injury noted to the right lateral aspect, there is new tissue forming, there is some very mild oozing present, no active bleeding. NECK: Normal range of motion, supple without lymphadenopathy or JVD. LUNGS: Unlabored respirations. Breath sounds clear to auscultation bilaterally and equal. No wheezes rales or rhonchi. HEART: Regular rate and rhythm without murmurs, rubs or gallops. ABDOMEN: Soft, nontender, normoactive bowel sounds. No guarding, no rebound. No masses appreciated. : Deferred MUSCULOSKELETAL: Normal extremities with adequate strength and normal range of motion, no pitting or edema. No clubbing or cyanosis. NEUROLOGICAL: Patient is alert and oriented x 3. Symmetrical smile. Normal speech, normal gait. PSYCH: Normal mood, normal affect. SKIN: Warm, Dry, normal turgor, no rashes or lesions noted. Limitations: no limitations Course Vital Signs 09/14/20 21:32 Temperature 97.9 F Pulse Rate 80 Respiratory 18 Rate Blood Pressure 197/116 O2 Sat by Pulse 98 Oximetry Medical Decision Making - Medical Decision Making Patient is a 44-year-old male here for recheck of an injury to the right lateral aspect of his tongue. He was initially seen yesterday and then rechecked again this morning in the ER. Currently there is only some very mild wheezing present, no active bleeding. Patient was concerned that this will happen again. I did inject a small amount of lidocaine with epi into the tongue. Patient was reexamined about 10 minutes later, no active bleeding. He is stable for discharge. I discussed with patient to not continuously play with the tongue, and be careful with chewing. Patient will follow up with his doctor. He should continue with his blood thinner. I did recommend a medication for his blood pressure however patient declines, he states this always happens when he comes to the hospital and when he goes home and is normal. He states he has no other symptoms. He is in agreement with this plan of care. Return parameters were discussed with the patient he verbalizes understanding. Case discussed with Dr. Velasquez. Disposition Clinical Impression: Tongue injury Disposition: HOME SELF-CARE Condition: Stable Instructions (If sedation given, give patient instructions): Blood Thinners (ED) Additional Instructions: Please return to the Emergency Department if symptoms worsen or any other concerns. Continue with your blood thinners. Follow-up with your family doctor. Is patient prescribed a controlled substance at d/c from ED?: No Referrals: Wilder Clements MD [Primary Care Provider] - 1-2 days
== END 2020-09-14 22:35 | disposition home or self-care (01) ==
LOC: EC 21:31
DX: S01.552A Open bite of oral cavity, initial encounter (principal); I10 Essential (primary) hypertension; Z79.82 Long term (current) use of aspirin; Z79.899 Other long term (current) drug therapy; Z88.0 Allergy status to penicillin; Z86.73 Personal history of transient ischemic attack (TIA), and cerebral infarction without residual deficits; X58.XXXA Exposure to other specified factors, initial encounter
CPT/HCPCS: 99283

== ENCOUNTER 2020-09-16 19:44 | Emergency (ER) | payer OTHER ==
[2020-09-16 20:31] VITALS: TEMP 98.5
--- NOTE | 2020-09-16 21:06 | ED ---
General Adult HPI - General Chief complaint: Recheck/Abnormal Lab/Rx Stated complaint: Revisit/tongue numbness Time Seen by Provider: 09/16/20 20:54 Source: patient, RN notes reviewed Mode of arrival: ambulatory Limitations: physical limitation - History of Present Illness Initial comments: Patient is a 44-year-old male presents to emergency department for the fourth time since Tuesday with right-sided tongue pain. He noted that over the last 3 days he bit his tongue Bleeding. He noted he is on blood thinners so once it stopped he would sneeze reduce unbearably against [place] several times. Today he noted that his tongue is just sensitive. He denied any bleeding. He wanted to come in just to make sure everything was okay and it didn't look infected. He denied any nausea vomiting diarrhea constipation fever fatigue chills. - Related Data Home Medications Medication Instructions Recorded Confirmed Aspirin EC [Ecotrin Low Dose] 81 mg PO DAILY@1200 08/13/20 08/13/20 Atorvastatin Calcium [Lipitor] 80 mg PO HS 08/13/20 08/13/20 Carvedilol [Coreg] 25 mg PO BID 08/13/20 08/13/20 NIFEdipine [NIFEdipine ER] 90 mg PO DAILY@1200 08/13/20 08/13/20 Ticagrelor [Brilinta] 90 mg PO BID 08/13/20 08/13/20 lisinopriL 20 mg PO BID PRN 08/13/20 08/13/20 Allergies Allergy/AdvReac Type Severity Reaction Status Date / Time Penicillins Allergy Unknown Verified 09/16/20 20:31 Childhood Review of Systems ROS Statement: Those systems with pertinent positive or pertinent negative responses have been documented in the HPI. ROS Other: All systems not noted in ROS Statement are negative. Past Medical History Past Medical History: CVA/TIA, Hyperlipidemia, Hypertension History of Any Multi-Drug Resistant Organisms: None Reported Past Surgical History: Hernia Repair Additional Past Surgical History / Comment(s): brain thombectomy, possible stent in brain Past Psychological History: No Psychological Hx Reported Smoking Status: Never smoker Past Alcohol Use History: None Reported Past Drug Use History: None Reported General Exam Limitations: physical limitation General appearance: alert, in no apparent distress Head exam: Present: atraumatic, normocephalic, normal inspection Eye exam: Present: normal appearance, PERRL, EOMI. Absent: scleral icterus, conjunctival injection, periorbital swelling ENT exam: Present: normal exam, mucous membranes moist Neck exam: Present: normal inspection. Absent: tenderness, meningismus, lymphadenopathy Respiratory exam: Present: normal lung sounds bilaterally. Absent: respiratory distress, wheezes, rales, rhonchi, stridor Cardiovascular Exam: Present: regular rate, normal rhythm, normal heart sounds. Absent: systolic murmur, diastolic murmur, rubs, gallop, clicks GI/Abdominal exam: Present: soft, normal bowel sounds. Absent: distended, tenderness, guarding, rebound, rigid Extremities exam: Present: normal inspection, full ROM, normal capillary refill. Absent: tenderness, pedal edema, joint swelling, calf tenderness Back exam: Present: normal inspection Neurological exam: Present: alert, oriented X3, CN II-XII intact Psychiatric exam: Present: normal affect, normal mood Skin exam: Present: warm, dry, intact, normal color, other (Healing bite wound to the right side of the tongue, does not appear to be infected.). Absent: rash Course Vital Signs 09/16/20 20:27 Temperature 98.5 F Pulse Rate 77 Respiratory 20 Rate Blood Pressure 167/106 O2 Sat by Pulse 96 Oximetry Medical Decision Making - Medical Decision Making 44-year-old male with right sided tongue laceration from biting. Patient was informed that the injury to the tongue constipation ever sensitive to touch of his teeth and other parts of his mouth which is causing the the sensitivity. Patient was agreeable with the explanation and does not want any further treatment. Case discussed with Dr. Cisneros, patient can discharge home. Disposition Clinical Impression: Tongue injury Disposition: HOME SELF-CARE Condition: Stable Additional Instructions: Please return to the Emergency Department if symptoms worsen or any other concerns. Follow-up with primary care in 2-4 days, eat foods as tolerated. Total be sensitive for several days until it is fully healed. Is patient prescribed a controlled substance at d/c from ED?: No Referrals: Wilder Clements MD [Primary Care Provider] - 1-2 days Time of Disposition: 21:19
[2020-09-16 21:20] VITALS: BP 150/99; PULSE 80; RESP 18
== END 2020-09-16 21:28 | disposition home or self-care (01) ==
LOC: EC 19:44
DX: S01.512A Laceration without foreign body of oral cavity, initial encounter (principal); Z86.73 Personal history of transient ischemic attack (TIA), and cerebral infarction without residual deficits; I10 Essential (primary) hypertension; E78.5 Hyperlipidemia, unspecified; Z79.899 Other long term (current) drug therapy; Z79.82 Long term (current) use of aspirin; Z88.0 Allergy status to penicillin; X58.XXXA Exposure to other specified factors, initial encounter
CPT/HCPCS: 99283

== ENCOUNTER → 2020-09-25 | Outpatient (CLI) | payer OTHER ==
--- NOTE | 2020-09-25 14:38 | US ---
EXAMINATION TYPE: US kidneys/renal and bladder DATE OF EXAM: 09/25/2020 COMPARISON: NONE CLINICAL HISTORY: N17.9 Acute kidney injury. BRADY EXAM MEASUREMENTS: Right Kidney: 11.1 x 5.4 x 5.9 cm Left Kidney: 11.8 x 4.8 x 4.0 cm Right Kidney: No hydronephrosis or masses seen Left Kidney: No hydronephrosis or masses seen Bladder: wnl Bilateral Jets seen: Yes There is no evidence for hydronephrosis at this point in time. No nephrolithiasis is seen. No brandie s are identified. The urinary bladder is anechoic. Bilateral ureteral jets are seen. IMPRESSION: No distinct abnormality seen.
[2020-09-25 15:01] LABS: AST 25 U/L (17-59); African American GFR (CKD) >90 (>60 ml/min/1.73 sqM); Albumin 4.8 g/dL (3.5-5.0); Anion Gap 8 mmol/L; Blood Urea Nitrogen 14 mg/dL (9-20); Calcium 9.5 mg/dL (8.4-10.2); Carbon Dioxide 30 mmol/L (22-30); Chloride 100 mmol/L (98-107); Glucose 125 mg/dL (74-99); Magnesium 2.1 mg/dL (1.6-2.3); Non-African American GFR(CKD) >90 (>60 ml/min/1.73 sqM); Phosphorus 3.5 mg/dL (2.5-4.5); Potassium 4.4 mmol/L (3.5-5.1); Sodium 138 mmol/L (137-145); Total Bilirubin 0.6 mg/dL (0.2-1.3); Total Protein 7.6 g/dL (6.3-8.2); Uric Acid 5.5 mg/dL (3.5-8.5)
[2020-09-25 15:02] LABS: ALT 26 U/L (4-49); Alkaline Phosphatase 118 U/L (38-126)
[2020-09-25 15:10] LABS: HGB 14.1 gm/dL (13.0-17.5); MCH 29.2 pg (25.0-35.0); MCHC 33.4 g/dL (31.0-37.0); MCV 87.2 fL (80.0-100.0); Mean Platelet Volume 7.4; Platelet Count 213 k/uL (150-450); RBC 4.82 m/uL (4.30-5.90); WBC 8.2 k/uL (3.8-10.6)
[2020-09-25 15:27] LABS: Appearance,Urine Clear (Clear); Bilirubin,Urine Negative (Negative); Blood,Urine Negative (Negative); Color,Urine Colorless; Glucose,Urine (UA) Negative (Negative); Ketones,Urine Negative (Negative); Leukocyte Esterase,Urine Negative (Negative); Nitrite,Urine Negative (Negative); PH, Urine 6.5 (5.0-8.0); Protein,Urine Negative (Negative); Specific Gravity,Urine 1.001 (1.001-1.035); Urobilinogen,Urine <2.0 mg/dL (<2.0)
[2020-09-26 05:46] LABS: % Iron Saturation 27.03 (15.00-50.00); Iron 90 ug/dL (65-175); Total Iron Binding Capacity 333 ug/dL (228-460)
[2020-09-26 05:47] LABS: Ferritin 243.9 ng/mL (22.0-322.0)
== END | disposition home or self-care (01) ==
LOC: RADUSWWP 14:04
PROVIDERS: ATTEND Internal Medicine Nephrology
DX: N17.9 Acute kidney failure, unspecified (principal); N39.0 Urinary tract infection, site not specified; D64.9 Anemia, unspecified; N28.81 Hypertrophy of kidney
CPT/HCPCS: 76770; 80053; 81003; 82306; 82728; 83540; 83550; 83735; 83970; 84100; 84550; 85027

== ENCOUNTER 2021-01-03 17:09 | Emergency (ER) | payer OTHER ==
[2021-01-03 17:13] VITALS: TEMP 97.7
--- NOTE | 2021-01-03 17:46 | ED ---
General Adult HPI - General Chief complaint: Shortness of Breath Stated complaint: SOB Time Seen by Provider: 01/03/21 17:32 Source: patient, family, RN notes reviewed Mode of arrival: ambulatory Limitations: no limitations - History of Present Illness Initial comments: Patient is a pleasant 45-year-old male presenting to the emergency department with difficulty breathing. Onset of symptoms was today. Symptoms do worsen a little bit with moderate or severe exertion. Patient once had similar symptoms around 20 years ago which was associated with anxiety. Patient denies any chest discomfort. No cough. Patient does have ALLERGY problems that seem somewhat worse recently. Patient recently had changes with his ALLERGY medication. No leg pain or leg swelling. No cough. No fever. - Related Data Home Medications Medication Instructions Recorded Confirmed Aspirin EC [Ecotrin Low Dose] 81 mg PO DAILY 08/13/20 01/03/21 Atorvastatin Calcium [Lipitor] 80 mg PO HS 08/13/20 01/03/21 NIFEdipine [NIFEdipine ER] 90 mg PO DAILY 08/13/20 01/03/21 Ticagrelor [Brilinta] 90 mg PO BID 08/13/20 01/03/21 lisinopriL 20 mg PO HS 08/13/20 01/03/21 Acetaminophen Tab [Tylenol Tab] 1,000 mg PO Q6HR PRN 01/03/21 01/03/21 Carvedilol [Coreg] 12.5 mg PO BID 01/03/21 01/03/21 Cetirizine HCl 10 mg PO DAILY 01/03/21 01/03/21 Famotidine 40 mg PO DAILY 01/03/21 01/03/21 Allergies Allergy/AdvReac Type Severity Reaction Status Date / Time Penicillins Allergy Unknown Verified 01/03/21 17:48 Childhood Review of Systems ROS Statement: Those systems with pertinent positive or pertinent negative responses have been documented in the HPI. ROS Other: All systems not noted in ROS Statement are negative. Constitutional: Denies: fever Eyes: Denies: eye pain ENT: Denies: ear pain Respiratory: Reports: as per HPI. Denies: cough Cardiovascular: Denies: chest pain Endocrine: Denies: fatigue Gastrointestinal: Denies: abdominal pain Genitourinary: Denies: dysuria Musculoskeletal: Denies: back pain Skin: Denies: rash Neurological: Denies: weakness Psychiatric: Reports: anxiety Past Medical History Past Medical History: CVA/TIA, Hyperlipidemia, Hypertension History of Any Multi-Drug Resistant Organisms: None Reported Past Surgical History: Hernia Repair Additional Past Surgical History / Comment(s): brain thombectomy, possible stent in brain, Past Psychological History: Anxiety, Panic Disorder Smoking Status: Former smoker Past Alcohol Use History: None Reported Past Drug Use History: None Reported General Exam Limitations: no limitations General appearance: alert, in no apparent distress Head exam: Present: normocephalic Eye exam: Present: normal appearance Neck exam: Present: normal inspection Respiratory exam: Present: normal lung sounds bilaterally. Absent: respiratory distress, wheezes, rales, rhonchi, stridor, chest wall tenderness, accessory muscle use, decreased breath sounds Cardiovascular Exam: Present: regular rate, normal rhythm Expanded Peripheral pulses: 2+: Radial (R), Radial (L), Posterior Tibialis (R), Posterior Tibialis (L) GI/Abdominal exam: Present: soft. Absent: tenderness Extremities exam: Present: normal inspection. Absent: pedal edema, calf tenderness Neurological exam: Present: alert Psychiatric exam: Present: normal affect, normal mood Skin exam: Present: normal color Course Vital Signs 01/03/21 01/03/21 01/03/21 17:11 18:13 19:15 Temperature 97.7 F Pulse Rate 75 74 70 Respiratory 16 18 16 Rate Blood Pressure 175/108 188/116 181/73 O2 Sat by Pulse 99 97 98 Oximetry - Reevaluation(s) Reevaluation #1: 01/03/21 18:44 Patient takes 2 antihypertensive medications at this time and is taking his home medications. EKG Findings - EKG Comments: EKG Findings:: Sinus rhythm with rate of 75. [place] 152. QRS 94. QT 36. QTc 431. Normal axis. Normal QRS. No acute ST change. Medical Decision Making - Medical Decision Making Patient reevaluated and resting comfortably in bed, patient is symptom-free following Ativan. Patient and family questioned if his symptoms were related to anxiety. Patient has reportedly a lot of anxiety. Blood pressure does remain high. Patient is advised to have further blood pressure control however he refuses. Patient states when he goes home his blood pressure will get better as this always happens with him in the hospital or medical setting. Patient does request discharge home. Patient refuses further care at this time. Patient does dementia medical decision making and agrees to close follow-up with his doctor. - Lab Data Result diagrams: 01/03/21 17:45 01/03/21 17:45 Lab Results 01/03/21 01/03/21 01/03/21 Range/Units 17:41 17:41 17:45 WBC 8.6 (3.8-10.6) k/uL RBC 5.37 (4.30-5.90) m/uL Hgb 15.6 (13.0-17.5) gm/dL Hct 46.9 (39.0-53.0) % MCV 87.2 (80.0-100.0) fL MCH 29.0 (25.0-35.0) pg MCHC 33.3 (31.0-37.0) g/dL RDW 12.9 (11.5-15.5) % Plt Count 195 (150-450) k/uL MPV 7.3 Neutrophils % 72 % Lymphocytes % 18 % Monocytes % 6 % Eosinophils % 2 % Basophils % 1 % Neutrophils # 6.2 (1.3-7.7) k/uL Lymphocytes # 1.6 (1.0-4.8) k/uL Monocytes # 0.5 (0-1.0) k/uL Eosinophils # 0.1 (0-0.7) k/uL Basophils # 0.1 (0-0.2) k/uL PT (9.0-12.0) sec INR (<1.2) APTT (22.0-30.0) sec D-Dimer (<0.60) mg/L FEU Sodium (137-145) mmol/L Potassium (3.5-5.1) mmol/L Chloride (98-107) mmol/L Carbon Dioxide (22-30) mmol/L Anion Gap mmol/L BUN (9-20) mg/dL Creatinine (0.66-1.25) mg/dL Est GFR (CKD-EPI)AfAm (>60 ml/min/1.73 sqM) Est GFR (CKD-EPI)NonAf (>60 ml/min/1.73 sqM) Glucose (74-99) mg/dL Plasma Lactic Acid Sanjay (0.7-2.0) mmol/L Calcium (8.4-10.2) mg/dL Total Bilirubin (0.2-1.3) mg/dL AST (17-59) U/L ALT (4-49) U/L Alkaline Phosphatase (38-126) U/L Troponin I (0.000-0.034) ng/mL NT-Pro-B Natriuret Pep 71 pg/mL Total Protein (6.3-8.2) g/dL Albumin (3.5-5.0) g/dL Coronavirus (PCR) Not Detected (Not Detectd) 01/03/21 01/03/21 01/03/21 Range/Units 17:45 17:45 17:45 WBC (3.8-10.6) k/uL RBC (4.30-5.90) m/uL Hgb (13.0-17.5) gm/dL Hct (39.0-53.0) % MCV (80.0-100.0) fL MCH (25.0-35.0) pg MCHC (31.0-37.0) g/dL RDW (11.5-15.5) % Plt Count (150-450) k/uL MPV Neutrophils % % Lymphocytes % % Monocytes % % Eosinophils % % Basophils % % Neutrophils # (1.3-7.7) k/uL Lymphocytes # (1.0-4.8) k/uL Monocytes # (0-1.0) k/uL Eosinophils # (0-0.7) k/uL Basophils # (0-0.2) k/uL PT 9.6 (9.0-12.0) sec INR 0.9 (<1.2) APTT 24.4 (22.0-30.0) sec D-Dimer <0.17 (<0.60) mg/L FEU Sodium 140 (137-145) mmol/L Potassium 3.9 (3.5-5.1) mmol/L Chloride 101 (98-107) mmol/L Carbon Dioxide 26 (22-30) mmol/L Anion Gap 13 mmol/L BUN 13 (9-20) mg/dL Creatinine 0.88 (0.66-1.25) mg/dL Est GFR (CKD-EPI)AfAm >90 (>60 ml/min/1.73 sqM) Est GFR (CKD-EPI)NonAf >90 (>60 ml/min/1.73 sqM) Glucose 142 H (74-99) mg/dL Plasma Lactic Acid Sanjay 1.3 (0.7-2.0) mmol/L Calcium 9.7 (8.4-10.2) mg/dL Total Bilirubin 0.7 (0.2-1.3) mg/dL AST 39 (17-59) U/L ALT 62 H (4-49) U/L Alkaline Phosphatase 130 H (38-126) U/L Troponin I (0.000-0.034) ng/mL NT-Pro-B Natriuret Pep pg/mL Total Protein 8.0 (6.3-8.2) g/dL Albumin 5.2 H (3.5-5.0) g/dL Coronavirus (PCR) (Not Detectd) 01/03/21 Range/Units 17:45 WBC (3.8-10.6) k/uL RBC (4.30-5.90) m/uL Hgb (13.0-17.5) gm/dL Hct (39.0-53.0) % MCV (80.0-100.0) fL MCH (25.0-35.0) pg MCHC (31.0-37.0) g/dL RDW (11.5-15.5) % Plt Count (150-450) k/uL MPV Neutrophils % % Lymphocytes % % Monocytes % % Eosinophils % % Basophils % % Neutrophils # (1.3-7.7) k/uL Lymphocytes # (1.0-4.8) k/uL Monocytes # (0-1.0) k/uL Eosinophils # (0-0.7) k/uL Basophils # (0-0.2) k/uL PT (9.0-12.0) sec INR (<1.2) APTT (22.0-30.0) sec D-Dimer (<0.60) mg/L FEU Sodium (137-145) mmol/L Potassium (3.5-5.1) mmol/L Chloride (98-107) mmol/L Carbon Dioxide (22-30) mmol/L Anion Gap mmol/L BUN (9-20) mg/dL Creatinine (0.66-1.25) mg/dL Est GFR (CKD-EPI)AfAm (>60 ml/min/1.73 sqM) Est GFR (CKD-EPI)NonAf (>60 ml/min/1.73 sqM) Glucose (74-99) mg/dL Plasma Lactic Acid Sanjay (0.7-2.0) mmol/L Calcium (8.4-10.2) mg/dL Total Bilirubin (0.2-1.3) mg/dL AST (17-59) U/L ALT (4-49) U/L Alkaline Phosphatase (38-126) U/L Troponin I <0.012 (0.000-0.034) ng/mL NT-Pro-B Natriuret Pep pg/mL Total Protein (6.3-8.2) g/dL Albumin (3.5-5.0) g/dL Coronavirus (PCR) (Not Detectd) - Radiology Data Radiology results: image reviewed (Chest x-ray shows no acute process) Disposition Clinical Impression: Dyspnea, Hypertension Disposition: HOME SELF-CARE Condition: Stable Instructions (If sedation given, give patient instructions): Hypertension (ED), Dyspnea (ED), Anxiety (ED) Additional Instructions: Please do follow-up through primary care physician in the next day or 2 for recheck. Please check your blood pressure at home. If blood pressure readings at home are also high, please return to emergency department. Also return for any chest pain, difficulty breathing, cough or fever, worsening symptoms or any other concerns. Is patient prescribed a controlled substance at d/c from ED?: No Referrals: Wilder Clements MD [Primary Care Provider] - 1-2 days Time of Disposition: 19:38
[2021-01-03] MEDS: LORazepam 2 MG/ML INJ IV STA (17:49)
[2021-01-03 17:53] LABS: Basophils # (A) 0.1 k/uL (0-0.2); Basophils % (A) 1 %; Eosinophils # (A) 0.1 k/uL (0-0.7); Eosinophils % (A) 2 %; HCT 46.9 % (39.0-53.0); HGB 15.6 gm/dL (13.0-17.5); Lymphocytes # (A) 1.6 k/uL (1.0-4.8); Lymphocytes % (A) 18 %; MCHC 33.3 g/dL (31.0-37.0); MCV 87.2 fL (80.0-100.0); Mean Platelet Volume 7.3; Monocytes # (A) 0.5 k/uL (0-1.0); Monocytes % (A) 6 %; Neutrophils # (A) 6.2 k/uL (1.3-7.7); Neutrophils % (A) 72 %; Platelet Count 195 k/uL (150-450); RBC 5.37 m/uL (4.30-5.90); RDW 12.9 % (11.5-15.5); WBC 8.6 k/uL (3.8-10.6)
--- NOTE | 2021-01-03 18:04 | XR ---
EXAMINATION TYPE: XR chest 2V DATE OF EXAM: 01/03/2021 COMPARISON: 08/13/2020 HISTORY: Difficulty breathing TECHNIQUE: FINDINGS: Heart and mediastinum are normal. Lungs are clear. Diaphragm is normal. Bony thorax is inta ct. There are chest leads. IMPRESSION: Normal chest. No change.
[2021-01-03 18:07] LABS: D-Dimer <0.17 mg/L FEU (<0.60); INR 0.9 (<1.2); Partial Thromboplastin Time 24.4 sec (22.0-30.0); Prothrombin Time 9.6 sec (9.0-12.0)
[2021-01-03 18:10] LABS: ALT 62 U/L (4-49); AST 39 U/L (17-59); African American GFR (CKD) >90 (>60 ml/min/1.73 sqM); Albumin 5.2 g/dL (3.5-5.0); Alkaline Phosphatase 130 U/L (38-126); Anion Gap 13 mmol/L; Blood Urea Nitrogen 13 mg/dL (9-20); Calcium 9.7 mg/dL (8.4-10.2); Carbon Dioxide 26 mmol/L (22-30); Chloride 101 mmol/L (98-107); Glucose 142 mg/dL (74-99); Non-African American GFR(CKD) >90 (>60 ml/min/1.73 sqM); Potassium 3.9 mmol/L (3.5-5.1); Sodium 140 mmol/L (137-145); Total Bilirubin 0.7 mg/dL (0.2-1.3)
[2021-01-03 19:22] VITALS: RESP 16
[2021-01-03] MEDS: hydrALAZINE HCL 20 MG/ML 1 ML VIAL IVP STA (19:47)
[2021-01-03 20:00] VITALS: BP 163/111; PULSE 75
== END 2021-01-03 20:00 | disposition home or self-care (01) ==
LOC: EC 17:09
DX: I10 Essential (primary) hypertension (principal); R06.02 Shortness of breath; E78.5 Hyperlipidemia, unspecified; F41.9 Anxiety disorder, unspecified; Z86.73 Personal history of transient ischemic attack (TIA), and cerebral infarction without residual deficits; Z87.891 Personal history of nicotine dependence; Z79.82 Long term (current) use of aspirin; Z79.899 Other long term (current) drug therapy; Z88.0 Allergy status to penicillin; Z20.822 Contact with and (suspected) exposure to COVID-19
CPT/HCPCS: 36415; 93005; 85379; 83880; 80053; 83605; 84484; 85025; 85610; 85730; 87635; 71046; 99285; 96374; 96375; J2060; J0360

== ENCOUNTER 2021-04-22 10:28 | Inpatient (IN) | payer OTHER ==
[2021-04-22] MEDS ORDERED: ASPIRIN 81 MG PO STA (11:03)
--- NOTE | 2021-04-22 11:47 | ED ---
Arrhythmia/Palpitations HPI - General Chief Complaint: Arrhythmia/Palpitations Stated Complaint: Cardiac Issues Time Seen by Provider: 04/22/21 11:00 Source: patient, family, RN notes reviewed, old records reviewed Mode of arrival: ambulatory Limitations: no limitations - History of Present Illness Initial Comments: Patient is a 45-year-old male with history of CVA in July, on brilinta, hypertension, hyperlipidemia, presenting to the emergency Department as requested from his primary care's office regarding findings on his heart monitor. Patient states he had a heart monitor placed 24 hours ago, he received a call today stating that given a certain rhythm he recommended coming into the ER for further evaluation. Patient has been having heart palpitations on and off over the past month. He has had a recent echo, about a month ago with Dr. Vallecillo, which showed no acute findings. Patient is unsure what the rhythm monitor received. Currently he denies any chest pain, he does feel palpitations here and there. He also admits to having some mild shortness of breath over the past month as well. His doctor is aware of this. He denies any abdominal pain, nausea or vomiting, no chest tightness, no headaches or dizziness. He denies any recent fevers or chills, no upper respiratory symptoms. He has no further complaints at this time. Upon arrival to the ER, his vitals are stable. - Related Data Home Medications Medication Instructions Recorded Confirmed Aspirin EC [Ecotrin Low Dose] 81 mg PO DAILY 08/13/20 04/22/21 Atorvastatin Calcium [Lipitor] 80 mg PO HS 08/13/20 04/22/21 NIFEdipine [NIFEdipine ER] 90 mg PO DAILY 08/13/20 04/22/21 Ticagrelor [Brilinta] 90 mg PO BID 08/13/20 04/22/21 lisinopriL 20 mg PO DAILY 08/13/20 04/22/21 Carvedilol [Coreg] 12.5 mg PO BID 01/03/21 04/22/21 Cetirizine HCl 10 mg PO DAILY PRN 01/03/21 04/22/21 Famotidine 40 mg PO DAILY 01/03/21 04/22/21 Acetaminophen Tab [Tylenol] 650 mg PO Q4H PRN 04/22/21 04/22/21 Allergies Allergy/AdvReac Type Severity Reaction Status Date / Time Penicillins Allergy Unknown Verified 04/22/21 11:59 Childhood Review of Systems ROS Statement: Those systems with pertinent positive or pertinent negative responses have been documented in the HPI. ROS Other: All systems not noted in ROS Statement are negative. Past Medical History Past Medical History: CVA/TIA, Hyperlipidemia, Hypertension History of Any Multi-Drug Resistant Organisms: None Reported Past Surgical History: Hernia Repair Additional Past Surgical History / Comment(s): brain thombectomy, possible stent in brain, Past Psychological History: Anxiety, Panic Disorder Smoking Status: Former smoker Past Alcohol Use History: None Reported Past Drug Use History: None Reported General Exam - General Exam Comments Initial Comments: GENERAL: Patient is well-developed and well-nourished. Patient is nontoxic and in no acute distress. HEAD: Atraumatic, normocephalic. EYES: Pupils equal round and reactive to light, extraocular movements intact, sclera anicteric, conjunctiva are normal. Eyelids were unremarkable. ENT: Nares patent, oropharynx clear without exudates. Moist mucous membranes. NECK: Normal range of motion, supple without lymphadenopathy or JVD. LUNGS: Unlabored respirations. Breath sounds clear to auscultation bilaterally and equal. No wheezes rales or rhonchi. HEART: Regular rate and rhythm without murmurs, rubs or gallops. ABDOMEN: Soft, nontender, normoactive bowel sounds. No guarding, no rebound. No masses appreciated. : Deferred MUSCULOSKELETAL: Normal extremities with adequate strength and normal range of motion, no pitting or edema. No clubbing or cyanosis. NEUROLOGICAL: Patient is alert and oriented x 3. Motor and sensory are also intact. Cranial nerves II through XII grossly intact. Symmetrical smile. Normal speech, normal gait. PSYCH: Normal mood, normal affect. SKIN: Warm, Dry, normal turgor, no rashes or lesions noted. Limitations: no limitations Course Vital Signs 04/22/21 04/22/21 10:33 13:53 Temperature 98 F 99.0 F Pulse Rate 88 70 Respiratory 18 16 Rate Blood Pressure 136/81 147/93 O2 Sat by Pulse 99 99 Oximetry EKG Findings - EKG Comments: EKG Findings:: Normal sinus rhythm, normal ECG. Similar to previous on 01/03/2021. Ventricular rate 86, MA interval 140, QT 358. Medical Decision Making - Medical Decision Making Patient is a 45-year-old male with history of CVA in July, hypertension, hyp erlipidemia, presenting with abnormal findings on his heart monitor in the last 24 hours. Intermittent palpitations over the past month. He had normal echo, with Dr. vallecillo, this past month. According to patient's PCPs office, they were called by the heart monitor company stating he had runs of V. tach. Unsure how long these runs lasted. They did consult with cardiology who recommended coming into the ER for admission. Patient has no chest pain today. His EKG is reading normal sinus rhythm. Labs are unremarkable including normal troponin and d-dimer. Chest x-ray showed no acute process. Patient will be admitted for cardiac consultation. Patient is agreeable to this. Patient amitted to Dr. Hernandez. Case discussed with Dr. Gregorio. - Lab Data Result diagrams: 04/22/21 11:30 04/22/21 11:30 Lab Results 04/22/21 04/22/21 04/22/21 Range/Units 11:30 11:30 11:30 WBC 9.6 (3.8-10.6) k/uL RBC 5.13 (4.30-5.90) m/uL Hgb 16.0 (13.0-17.5) gm/dL Hct 45.3 (39.0-53.0) % MCV 88.5 (80.0-100.0) fL MCH 31.2 (25.0-35.0) pg MCHC 35.3 (31.0-37.0) g/dL RDW 12.7 (11.5-15.5) % Plt Count 190 (150-450) k/uL MPV 7.6 Neutrophils % 79 % Lymphocytes % 13 % Monocytes % 6 % Eosinophils % 1 % Basophils % 1 % Neutrophils # 7.6 (1.3-7.7) k/uL Lymphocytes # 1.2 (1.0-4.8) k/uL Monocytes # 0.5 (0-1.0) k/uL Eosinophils # 0.1 (0-0.7) k/uL Basophils # 0.1 (0-0.2) k/uL PT 10.2 (9.0-12.0) sec INR 0.9 (<1.2) APTT 24.4 (22.0-30.0) sec D-Dimer <0.17 (<0.60) mg/L FEU Sodium 138 (137-145) mmol/L Potassium 4.4 (3.5-5.1) mmol/L Chloride 102 (98-107) mmol/L Carbon Dioxide 25 (22-30) mmol/L Anion Gap 11 mmol/L BUN 16 (9-20) mg/dL Creatinine 0.82 (0.66-1.25) mg/dL Est GFR (CKD-EPI)AfAm >90 (>60 ml/min/1.73 sqM) Est GFR (CKD-EPI)NonAf >90 (>60 ml/min/1.73 sqM) Glucose 136 H (74-99) mg/dL Calcium 9.3 (8.4-10.2) mg/dL Magnesium 2.1 (1.6-2.3) mg/dL Total Bilirubin 0.8 (0.2-1.3) mg/dL AST 32 (17-59) U/L ALT 48 (4-49) U/L Alkaline Phosphatase 100 (38-126) U/L Troponin I (0.000-0.034) ng/mL Total Protein 7.7 (6.3-8.2) g/dL Albumin 4.8 (3.5-5.0) g/dL 04/22/21 Range/Units 11:30 WBC (3.8-10.6) k/uL RBC (4.30-5.90) m/uL Hgb (13.0-17.5) gm/dL Hct (39.0-53.0) % MCV (80.0-100.0) fL MCH (25.0-35.0) pg MCHC (31.0-37.0) g/dL RDW (11.5-15.5) % Plt Count (150-450) k/uL MPV Neutrophils % % Lymphocytes % % Monocytes % % Eosinophils % % Basophils % % Neutrophils # (1.3-7.7) k/uL Lymphocytes # (1.0-4.8) k/uL Monocytes # (0-1.0) k/uL Eosinophils # (0-0.7) k/uL Basophils # (0-0.2) k/uL PT (9.0-12.0) sec INR (<1.2) APTT (22.0-30.0) sec D-Dimer (<0.60) mg/L FEU Sodium (137-145) mmol/L Potassium (3.5-5.1) mmol/L Chloride (98-107) mmol/L Carbon Dioxide (22-30) mmol/L Anion Gap mmol/L BUN (9-20) mg/dL Creatinine (0.66-1.25) mg/dL Est GFR (CKD-EPI)AfAm (>60 ml/min/1.73 sqM) Est GFR (CKD-EPI)NonAf (>60 ml/min/1.73 sqM) Glucose (74-99) mg/dL Calcium (8.4-10.2) mg/dL Magnesium (1.6-2.3) mg/dL Total Bilirubin (0.2-1.3) mg/dL AST (17-59) U/L ALT (4-49) U/L Alkaline Phosphatase (38-126) U/L Troponin I <0.012 (0.000-0.034) ng/mL Total Protein (6.3-8.2) g/dL Albumin (3.5-5.0) g/dL Disposition Clinical Impression: Heart palpitations, Dyspnea Disposition: ADMITTED IP TO THIS [facility] Condition: Stable Decision Date: 04/22/21 Decision Time: 12:54
--- NOTE | 2021-04-22 11:54 | XR ---
EXAMINATION TYPE: XR chest 2V DATE OF EXAM: 04/22/2021 COMPARISON: Chest x-ray 01/03/2021 HISTORY: Dysrhythmia TECHNIQUE: Frontal and lateral views of the chest are obtained. FINDINGS: There is no focal air space opacity, pleural effusion, or pneumothorax seen. The cardiac silhouette size is within normal limits. There are overlying leads. The osseous structures are intac t. IMPRESSION: No acute cardiopulmonary process.
[2021-04-22 12:14] LABS: ALT 48 U/L (4-49); AST 32 U/L (17-59); African American GFR (CKD) >90 (>60 ml/min/1.73 sqM); Albumin 4.8 g/dL (3.5-5.0); Alkaline Phosphatase 100 U/L (38-126); Anion Gap 11 mmol/L; Blood Urea Nitrogen 16 mg/dL (9-20); Calcium 9.3 mg/dL (8.4-10.2); Carbon Dioxide 25 mmol/L (22-30); Chloride 102 mmol/L (98-107); Glucose 136 mg/dL (74-99); Magnesium 2.1 mg/dL (1.6-2.3); Non-African American GFR(CKD) >90 (>60 ml/min/1.73 sqM); Potassium 4.4 mmol/L (3.5-5.1); Sodium 138 mmol/L (137-145); Total Bilirubin 0.8 mg/dL (0.2-1.3); Total Protein 7.7 g/dL (6.3-8.2)
[2021-04-22 12:16] LABS: INR 0.9 (<1.2); Partial Thromboplastin Time 24.4 sec (22.0-30.0); Prothrombin Time 10.2 sec (9.0-12.0)
[2021-04-22 12:22] LABS: Basophils # (A) 0.1 k/uL (0-0.2); Basophils % (A) 1 %; Eosinophils # (A) 0.1 k/uL (0-0.7); Eosinophils % (A) 1 %; HCT 45.3 % (39.0-53.0); Lymphocytes # (A) 1.2 k/uL (1.0-4.8); Lymphocytes % (A) 13 %; MCH 31.2 pg (25.0-35.0); MCHC 35.3 g/dL (31.0-37.0); MCV 88.5 fL (80.0-100.0); Mean Platelet Volume 7.6; Monocytes # (A) 0.5 k/uL (0-1.0); Monocytes % (A) 6 %; Neutrophils # (A) 7.6 k/uL (1.3-7.7); Neutrophils % (A) 79 %; Platelet Count 190 k/uL (150-450); RBC 5.13 m/uL (4.30-5.90); RDW 12.7 % (11.5-15.5); WBC 9.6 k/uL (3.8-10.6)
[2021-04-22] MEDS: ATORVASTATIN 80 MG TAB PO SCH (20:56)
[2021-04-22] MEDS: carvediloL 12.5 MG TAB PO SCH (20:56)
[2021-04-22] MEDS ORDERED: TICAGRELOR 90 MG TAB PO SCH (21:00)
--- NOTE | 2021-04-22 21:56 | P.HPIM ---
History of Present Illness H&P Date: 04/22/21 Patient is a 45-year-old male with a PMH of CVA in July 2020, hypertension, and hyperlipidemia who was sent to the emergency room due to abnormal findings on a heart monitor. The patient reports over the past 1 month, he has been having intermittent palpitations for which she was seen at his primary care physician's office and was placed on a 24-hour event monitor. Patient states that the monitor was placed yesterday and that they received a call earlier in the day that he there was an abnormal rhythm and that he should immediately go to the emergency room. The patient has recently undergone an echocardiogram which was unremarkable. Patient was not told what resume it was. He notes c ontinued intermittent palpitations, which he describes as extra beats occurring after every 10-20 regular beats. He reports having recovered fully from his stroke earlier in the year. He further denied experiencing chest discomfort or shortness of breath. He denied nausea, vomiting, diaphoresis. The patient does state however that he continues to drink large amounts of coffee daily and that he has been under a tremendous amount of stress as he recently had to move out of his current home due to a mold infestation. EKG in the emergency room revealed a normal sinus rhythm at [address]/T-wave changes noted as reviewed by me. The ED documentation notes that the patient had runs of V. tach on the monitor. Chest x-ray was unremarkable. Laboratory evaluation revealed a troponin of less than 0.012 with glucose 136. Review of systems: Pertinent positives and negatives as discussed in HPI, a complete review of systems was performed and all other systems are negative. Physical examination: General: non toxic, no distress, appears at stated age, overweight Derm: no unusual rashes/lesions no unusual ecchymoses, warm, dry Head: atraumatic, normocephalic, symmetric Eyes: EOMI, no lid lag, anicteric sclera, pupils equal round reactive to light ENT: Nose and ears atraumatic, no thrush, no pharyngeal erythema Neck: No thyromegaly, no cervical lymphadenopathy, trachea midline, supple Mouth: no lip lesion, mucus membranes moist Cardiovascular: S1S2 reg, no murmur, positive posterior tibial pulse bilateral, no edema, capillary refill less than 2 seconds Lungs: CTA bilateral, no rhonchi, no rales , no accessory muscle use Abdominal: soft, nontender to palpation, no guarding, no appreciable organomegaly, normal bowel sounds Ext: no gross muscle atrophy, muscle strength 5 out of 5 in all 4 extremities grossly, no contractures, Neuro: CN II-XI grossly intact, light touch intact all 4 extremities, finger to nose within normal limits, Psych: Alert, oriented, appropriate affect Assessment/plan Ventricular tachycardia on event monitor -Cardiac monitoring -Cardiology consulted -Continue with aspirin and Brilinta -Continue with home Coreg Chronic conditions: Hypertension, hyperlipidemia -Continue with home meds Hyperglycemia -Check A1c DVT prophylaxis -Heparin subq The patient is admitted with an anticipated less than 2 midnight stay for evaluation of v-tach CODE STATUS: Full Code Discussed with: Patient Anticipated discharge date: in am Anticipated discharge place: Home Past Medical History Past Medical History: CVA/TIA, Hyperlipidemia, Hypertension History of Any Multi-Drug Resistant Organisms: None Reported Past Surgical History: Hernia Repair Additional Past Surgical History / Comment(s): brain thombectomy, possible stent in brain, Past Psychological History: Anxiety, Panic Disorder Smoking Status: Former smoker Past Alcohol Use History: None Reported Past Drug Use History: None Reported - Past Family History Father Family Medical History: Chest Pain / Angina Medications and Allergies Home Medications Medication Instructions Recorded Confirmed Type Aspirin EC [Ecotrin Low Dose] 81 mg PO DAILY 08/13/20 04/22/21 History Atorvastatin Calcium [Lipitor] 80 mg PO HS 08/13/20 04/22/21 History NIFEdipine [NIFEdipine ER] 90 mg PO DAILY 08/13/20 04/22/21 History Ticagrelor [Brilinta] 90 mg PO BID 08/13/20 04/22/21 History lisinopriL 20 mg PO DAILY 08/13/20 04/22/21 History Carvedilol [Coreg] 12.5 mg PO BID 01/03/21 04/22/21 History Cetirizine HCl 10 mg PO DAILY PRN 01/03/21 04/22/21 History Famotidine 40 mg PO DAILY 01/03/21 04/22/21 History Acetaminophen Tab [Tylenol] 650 mg PO Q4H PRN 04/22/21 04/22/21 History Allergies Allergy/AdvReac Type Severity Reaction Status Date / Time Penicillins Allergy Unknown Verified 04/22/21 11:59 Childhood Physical Exam Vitals: Vital Signs Temp Pulse Pulse Resp BP BP Pulse Ox 04/22/21 19:20 98.3 F 76 18 150/90 98 04/22/21 18:30 97.6 F 77 16 159/104 98 04/22/21 13:53 99.0 F 70 16 147/93 99 04/22/21 10:33 98 F 88 18 136/81 99 Intake and Output 04/22/21 04/22/21 04/22/21 06:59 14:59 22:59 Other: Weight 87.09 kg Results CBC & Chem 7: 04/22/21 11:30 04/22/21 11:30 Labs: Abnormal Lab Results - Last 24 Hours (Table) 04/22/21 Range/Units 11:30 Glucose 136 H (74-99) mg/dL
[2021-04-23] MEDS: HEPARIN SODIUM,PORCINE/PF 5,000 UNIT/0.5 ML SYRINGE SQ SCH ×5 (01:05→23:49)
[2021-04-23] MEDS: carvediloL 12.5 MG TAB PO SCH ×2 (06:00→19:55)
[2021-04-23] MEDS: ASPIRIN 81 MG PO SCH ×2 (06:00→10:31)
[2021-04-23] MEDS: NIFEdipine XL 90 MG TAB.ER.24 PO SCH (06:01)
[2021-04-23] MEDS ORDERED: lisinopriL 20 MG TAB PO SCH ×3 (06:01→18:00)
[2021-04-23] MEDS: TICAGRELOR 90 MG TAB PO SCH ×2 (06:06→18:01)
[2021-04-23] MEDS ORDERED: ASPIRIN 325 MG TAB PO SCH (09:00)
[2021-04-23] MEDS ORDERED: ASPIRIN 81 MG PO SCH (09:00)
[2021-04-23] MEDS ORDERED: NIFEdipine XL 90 MG TAB.ER.24 PO SCH (09:00)
--- NOTE | 2021-04-23 15:01 | P.CRDCN ---
History of Present Illness History of present illness: This is Dr. Travis dictating a consult on this patient The patient was interviewed and examined IMPRESSION / ASSESSMENT: Palpitations and an abnormality noted in his 24-hour Holter monitor. Rhythm strips awaited History of hypertension History of dyslipidemia History of stroke in the past PLAN: No further workup until we obtain the EKGs of his Holter monitor from Dr. Srinivaasn's office Patient is stable from a cardiovascular standpoint There is no evidence of an acute myocardial infarction, EKG is normal No arrhythmias documented here on telemetry so far Continue antihypertensive therapy Continue statins Continue Brilinta for now HPI Patient was asked to come in to the ER and an abnormality was noted on the monitor as prescribed at Dr. Clements's office The patient says that he did feel palpitations but also removed the battery and does not know if this was an artifact or not We are waiting for the Holter monitor reports and the ECG strips from zac Reilly's office He has a history of palpitations He has a history of hypertension dyslipidemia According to Dr. Blanco support his recent carotid and echo studies were unremarkable According to the note he does complain of dizziness but without any presyncope or syncope He is on dual antiplatelet therapy along with high intensity statins since he's had a history of CVA He has a history of severe smoking and mild bilateral carotid atherosclerosis ROS: No fever chills or rigors, no cough, phlegm or expectoration, no nausea, vomiting or diarrhea, no hematuria, dysuria, no musculoskeletal complaints, no strokes or seizures, no skin lesions. EXAMINATION: Baseline blood pressure 135/86 mmHg pulse rate in the 60s afebrile 97.5F Breath sounds are clear no rhonchi no crackles Heart sounds S1 and S2 are normal Abdomen is soft Extremities warm no edema REVIEW OF LABS, ECG & MEDICAL DATA Home medications include Brilinta, nifedipine long-acting, carvedilol, atorvastatin, aspirin, benazepril He is ALLERGIC to penicillin His twelve-lead EKG is normal Labs are reviewed Normal CBC Normal electrolytes Elevated glucose Cardiac enzymes are normal 3 Past Medical History Past Medical History: CVA/TIA, Hyperlipidemia, Hypertension History of Any Multi-Drug Resistant Organisms: None Reported Past Surgical History: Hernia Repair Additional Past Surgical History / Comment(s): brain thombectomy, possible stent in brain, Past Anesthesia/Blood Transfusion Reactions: No Reported Reaction Past Psychological History: Anxiety, Panic Disorder Smoking Status: Former smoker Past Alcohol Use History: None Reported Past Drug Use History: None Reported - Past Family History Father Family Medical History: Chest Pain / Angina Medications and Allergies Home Medications Medication Instructions Recorded Confirmed Type Aspirin EC [Ecotrin Low Dose] 81 mg PO DAILY 08/13/20 04/22/21 History Atorvastatin Calcium [Lipitor] 80 mg PO HS 08/13/20 04/22/21 History NIFEdipine [NIFEdipine ER] 90 mg PO DAILY 08/13/20 04/22/21 History RX: lisinopriL 20 mg PO DAILY 08/13/20 04/22/21 History Ticagrelor [Brilinta] 90 mg PO BID 08/13/20 04/22/21 History Carvedilol [Coreg] 12.5 mg PO BID 01/03/21 04/22/21 History RX: Cetirizine HCl 10 mg PO DAILY PRN 01/03/21 04/22/21 History RX: Famotidine 40 mg PO DAILY 01/03/21 04/22/21 History Acetaminophen Tab [Tylenol] 650 mg PO Q4H PRN 04/22/21 04/22/21 History Allergies Allergy/AdvReac Type Severity Reaction Status Date / Time Penicillins Allergy Unknown Verified 04/22/21 11:59 Childhood Physical Exam Vitals: Vital Signs Temp Pulse Resp BP Pulse Ox 04/23/21 14:07 98.4 F 72 18 153/92 96 04/23/21 08:00 63 16 04/23/21 07:00 98.3 F 63 16 150/95 99 04/23/21 01:58 97.5 F L 63 16 135/86 98 04/23/21 01:38 18 04/22/21 19:20 98.3 F 76 18 150/90 98 04/22/21 18:30 97.6 F 77 16 159/104 98 Intake and Output 04/23/21 04/23/21 04/23/21 06:59 14:59 22:59 Intake Total 300 Balance 300 Intake: Oral 300 Other: # Voids 2 2 Results 04/22/21 11:30 04/22/21 11:30 Cardiac Enzymes 04/22/21 04/22/21 Range/Units 14:42 17:27 Troponin I <0.012 <0.012 (0.000-0.034) ng/mL Current Medications Generic Name Dose Route Start Last Admin Trade Name Marty PRN Reason Stop Dose Admin Aspirin 81 mg 04/23/21 06:00 04/23/21 10:31 Aspirin 81 Mg PO Not Given DAILY [facility] Atorvastatin Calcium 80 mg 04/22/21 21:00 04/22/21 20:56 Atorvastatin 80 Mg Tab PO Not Given HS MARCO A Carvedilol 12.5 mg 04/22/21 19:30 04/23/21 06:00 Carvedilol 12.5 Mg Tab PO 12.5 mg BID-W/MEALS MARCO A Administration Heparin Sodium (Porcine) 5,000 unit 04/23/21 00:00 04/23/21 08:42 Heparin Sodium,Porcine/Pf 5,000 Unit/0.5 Ml Syringe SQ 5,000 unit Q8HR [facility] Administration Lisinopril 20 mg 04/23/21 18:00 Lisinopril 20 Mg Tab PO DAILY [facility] Nifedipine 90 mg 04/23/21 06:01 04/23/21 06:01 Nifedipine Xl 90 Mg Tab.Er.24 PO 90 mg DAILY [facility] Administration Ticagrelor 90 mg 04/23/21 06:15 04/23/21 06:06 Ticagrelor 90 Mg Tab PO 90 mg BID [facility] Administration Intake and Output 04/23/21 04/23/21 04/23/21 06:59 14:59 22:59 Intake Total 300 Balance 300 Intake: Oral 300 Other: # Voids 2 2 04/22/21 11:30 04/22/21 11:30
[2021-04-23] MEDS ORDERED: carvediloL 12.5 MG TAB PO STA (15:54)
[2021-04-23 16:17] LABS: Chol/HDL Ratio 2.13 Ratio; HDL Cholesterol 37.9 mg/dL (40.00-60.00); LDL Cholesterol,Calculated 27.7 mg/dL (0.0-131.0); Triglycerides 74.9 mg/dL (0.00-149.00); VLDL Calculation 14.98 mg/dL (5.00-40.00)
--- NOTE | 2021-04-23 16:18 | P.PN ---
Subjective Progress Note Date: 04/23/21 Principal diagnosis: palpitations Patient is a 45-year-old male with a history of a CVA in July 2020, hypertension, and dyslipidemia who was placed on a heart monitor secondary to palpitations. He received a call yesterday to come to the ER due to an abnormality on his heart monitor. In the ER he underwent an extensive evaluation. His EKG showed no signs of arrhythmia. Initial troponins were negative and laboratory analysis is essentially unremarkable. He was admitted under observation. Cardiology was consulted. They are waiting to obtain EKG portion of his Holter monitor. Patient seen and examined at bedside. He reports multiple episodes of palpitat ions overnight, however none have been reported in the event section. He denies any chest pain, shortness breath, or nausea at this time. He is hoping to be discharged today. We discussed that his discharge is pending cardiology clearance. General: non toxic, no distress, appears at stated age Derm: warm, dry Head: atraumatic, normocephalic, symmetric Eyes: EOMI, no lid lag, anicteric sclera Mouth: no lip lesion, mucus membranes moist Cardiovascular: S1S2 reg, no murmur, positive posterior tibial pulse bilateral, Lungs: CTA bilateral, no rhonchi, no rales , no accessory muscle use Abdominal: soft, nontender to palpation, no guarding, no appreciable organomegaly Ext: no gross muscle atrophy, no edema, no contractures Neuro: CN II-XI grossly intact, no focal neuro deficits Psych: Alert, oriented, appropriate affect Nonsustained V. tach, approximately 15 beat run -Cardiology recommendations: cath in am with Dr. Brown -Continue with aspirin, brilinta, Coreg, and nifedipine Hypertension, controlled -Continue with meds Dyslipidemia - statin HX of CVA. home pending cath results Objective - Vital Signs Vital signs: Vital Signs Temp 98.4 F 04/23/21 14:07 Pulse 72 04/23/21 15:09 Resp 18 04/23/21 14:07 BP 153/92 04/23/21 14:07 Pulse Ox 96 04/23/21 14:07 Intake & Output 04/22/21 04/23/21 04/23/21 18:59 06:59 18:59 Intake Total 300 300 Balance 300 300 Weight 87.09 kg Intake: Oral 300 300 Other: # Voids 2 2 - Labs CBC & Chem 7: 04/22/21 11:30 04/22/21 11:30 Labs: Abnormal Lab Results - Last 24 Hours (Table) 04/22/21 Range/Units 11:30 HDL Cholesterol 37.90 L (40.00-60.00) mg/dL
[2021-04-23] MEDS ORDERED: ALPRAZolam 0.25 MG TAB PO PRN (16:20)
[2021-04-23] MEDS ORDERED: NITROGLYCERIN SL TABS 0.4 MG TAB SUBLINGUAL PRN (16:20)
[2021-04-23] MEDS ORDERED: SODIUM CHLORIDE 0.9% 1,000 ML in EMPTY BAG 1 BAG IV SCH ×2 (16:30→18:30)
[2021-04-23] MEDS: ATORVASTATIN 80 MG TAB PO SCH (18:02)
[2021-04-23] MEDS: ALPRAZolam 0.5 MG TAB PO PRN (20:57)
[2021-04-23] MEDS: SODIUM CHLORIDE 0.9% 1,000 ML in EMPTY BAG 1 BAG IV SCH (20:58)
[2021-04-24] MEDS ORDERED: ATORVASTATIN 80 MG TAB PO ONE (05:00)
[2021-04-24] MEDS ORDERED: ASPIRIN 325 MG TAB PO ONE (05:00)
[2021-04-24] MEDS: NIFEdipine XL 90 MG TAB.ER.24 PO SCH (05:23)
[2021-04-24] MEDS: carvediloL 12.5 MG TAB PO SCH ×3 (05:24→18:06)
[2021-04-24] MEDS: TICAGRELOR 90 MG TAB PO SCH ×2 (05:35→18:05)
[2021-04-24] MEDS: ASPIRIN 81 MG PO SCH (05:36)
[2021-04-24] MEDS: HEPARIN SODIUM,PORCINE/PF 5,000 UNIT/0.5 ML SYRINGE SQ SCH ×2 (05:37→18:07)
[2021-04-24] MEDS ORDERED: HEPARIN SODIUM,PORCINE 10,000 UNIT in SODIUM CHLORIDE 0.9% 1,000 ML IRRIGATION PRN (07:00)
[2021-04-24] MEDS ORDERED: HEPARIN SODIUM,PORCINE 2,500 UNIT in SODIUM CHLORIDE 0.9% 250 ML IRRIGATION PRN (07:00)
[2021-04-24] MEDS ORDERED: VERAPAMIL 2.5 MG/ML 2 ML AMP ONE (08:18)
[2021-04-24] MEDS ORDERED: LIDOCAINE 1% INJ 10MG/ML (20 ML MDV) ONE (08:18)
[2021-04-24] MEDS ORDERED: HEPARIN SODIUM 1,000 UN/ML (10ML VL) ONE (08:18)
[2021-04-24] MEDS ORDERED: fentaNYL (PF) 50 MCG/ML 2 ML AMP ONE (08:18)
[2021-04-24] MEDS ORDERED: IV FLUID CONTINUATION 1,000 ML IV ONE (08:29)
[2021-04-24] MEDS: fentaNYL (PF) 50 MCG/ML 2 ML AMP IV ONE ×2 (08:29→09:02)
[2021-04-24] MEDS ORDERED: MIDAZOLAM 2 MG/2 ML VIAL IV ONE ×3 (08:30→09:02)
[2021-04-24] MEDS ORDERED: LIDOCAINE 1% INJ 10MG/ML (20 ML MDV) SQ ONE (08:43)
[2021-04-24] MEDS ORDERED: VERAPAMIL SYRINGE (5 MG/10 ML) INTRAARTER ONE (08:45)
[2021-04-24] MEDS: NITROGLYCERIN 1000MCG/10ML SYRINGE INTRACORON ONE ×2 (08:52→09:13)
[2021-04-24] MEDS ORDERED: IOPAMIDOL-370 125ML BTL INJ ONE ×2 (09:06→09:30)
[2021-04-24] MEDS ORDERED: ACETAMINOPHEN TAB 325 MG TAB PO PRN (09:42)
[2021-04-24] MEDS ORDERED: MAG HYDROX/AL HYDROX/SIMETH 30 ML CUP PO PRN (09:43)
[2021-04-24] MEDS ORDERED: ATROPINE SULFATE 0.1 MG/ML 10ML SYRINGE IV PRN (09:43)
[2021-04-24] MEDS ORDERED: ZOLPIDEM 5 MG TAB PO PRN (09:43)
[2021-04-24] MEDS ORDERED: RX INFO: IV CONTRAST WAS GIVEN 1 EACH MISC MISCELLANE PRN (09:43)
[2021-04-24] MEDS ORDERED: SODIUM CHLORIDE 0.9% 1,000 ML IV SCH (09:45)
[2021-04-24 11:57] VITALS: BMI 26.7
[2021-04-24] MEDS: SODIUM CHLORIDE 0.9% 1,000 ML in EMPTY BAG 1 BAG IV SCH (12:04)
[2021-04-24] MEDS ORDERED: lisinopriL 20 MG TAB PO SCH (18:00)
[2021-04-24] MEDS ORDERED: ATORVASTATIN 80 MG TAB PO SCH (18:00)
--- NOTE | 2021-04-24 19:08 | CC ---
CARDIAC CATHETERIZATION REPORT DATE OF SERVICE: 04/24/2021 PERFORMING PHYSICIAN: Thomas Brown MD. PROCEDURE PERFORMED: 1. Selective right and left coronary angiogram. 2. Left heart catheterization. 3. Successful stenting of the distal LAD using 2.75 x 18 mm Xience drug-eluting stent with an excellent angiographic result. 4. Successful stenting of the distal left circumflex using 2.25 x 15 mm Xience drug- eluting stent with an excellent angiographic result. INDICATION: This is a 45-year-old gentleman who had history of stroke who was seen recently by his primary care physician where an event monitor was placed and that showed runs of polymorphic ventricular tachycardia concerning for severe underlying coronary artery disease. APPROACH: Right radial artery. COMPLICATION: None. LEVEL OF SEDATION: Moderate with sedation length of 15 minutes. PROCEDURE DESCRIPTION: After obtaining informed consent the patient was brought to the cardiac rn cardiac cath. The right radial artery was cannulated using micropuncture technique, the micropuncture wire passed easily then I placed a 6-[place]er sheath at the right radial artery. I did give the patient 2 mg of verapamil IA. Anticoagulation was initiated with heparin with continuous ACT monitoring throughout the case. Selective right and left coronary angiogram performed with JR4 and JL3.5 catheters. Left heart catheterization was performed using 5-[place]er pigtail catheter. After that I did intervene on the LAD and left circumflex. Please see a separate paragraph for that. SELECTIVE CORONARY ANGIOGRAM: 1. The RCA is a medium caliber vessel. It is a nondominant vessel and appeared to be angiographically normal. 2. The left main does not exist. 3. The left circumflex is a large caliber vessel, it is a dominant vessel. The LCX distally after the PDA branch has a tight lesion, appeared to be in the range of 80%. 4. The LAD is a large caliber vessel. The LAD has mild disease in the proximal and midportion but distally has a tight lesion, appeared to be in the range of 80% as well. HEMODYNAMICS: The LVEDP was 10 to 12 mmHg without significant gradient across aortic valve. PCI OF THE LAD AND LCX: Anticoagulation was achieved using heparin with continuous ACT monitoring throughout the case. Subsequently, I did engage the LAD using JL3.5 with a short tip. The guide was going towards the left circumflex. I decided to wire the left circumflex to anchor the guide, so I placed a run-through wire in the left circumflex coronary artery. After that, I did wire the LAD using another run-through wire. The wire was advanced all the way to the distal LAD. Balloon angioplasty of the LAD was performed using 2.0 x 12 mm balloon. After that I deployed in the LAD a 2.75 x 18 mm Xience drug-eluting stent where the stent was positioned under fluoroscopic guidance and deployed under its nominal pressure with the following angiogram showed excellent angiographic results. Subsequently, I did balloon to circumflex using 2.0 x 12 mm balloon. After that I did place a stent in the left circumflex and that was 2.25 x 15 mm, another Xience. The second stent was deployed under its nominal pressure. The final angiogram showed excellent angiographic results and the procedure was completed without any complication. CONCLUSION: 1. Multiple runs of polymorphic VT in this 45-year-old gentleman with history of stroke. 2. Severe two vessel coronary artery disease involving the LCX and LAD. 3. Successful stenting of both the LCX and LAD with an excellent angiographic results. POSTPROCEDURE MANAGEMENT: 1. Dual anti-platelet therapy. 2. Aggressive cholesterol control. 3. Risk factor modifications. 4. Follow up with the patient. MMODL / IJN: [id number] /
--- NOTE | 2021-04-24 19:59 | P.PN ---
Subjective Progress Note Date: 04/24/21 Patient is a 45-year-old male with a history of a CVA in July 2020, hypertension, and dyslipidemia who was placed on a heart monitor secondary to palpitations. He received a call yesterday to come to the ER due to an abnormality on his heart monitor. In the ER he underwent an extensive evalu ation. His EKG showed no signs of arrhythmia. Initial troponins were negative and laboratory analysis is essentially unremarkable. He was admitted under observation. Patient seen and examined at bedside. Status post heart catheterization, patient had stents placed and then, currently awaiting cardiac clearance, monitored for 24 more hours and once cleared by cardiology, we'll plan for discharge back to home Objective - Vital Signs Vital signs: Vital Signs Temp 98.7 F 04/24/21 19:38 Pulse 79 04/24/21 19:38 Resp 18 04/24/21 19:38 BP 128/81 04/24/21 19:38 Pulse Ox 95 04/24/21 19:38 Intake & Output 04/24/21 04/24/21 04/25/21 06:59 18:59 06:59 Intake Total 500 Output Total 100 Balance 400 Weight 87.09 kg Intake: IV 500 Output: Urine 100 Other: Voiding Method Toilet # Voids 2 3 General: non toxic, no distress, appears at stated age Head: atraumatic, normocephalic, symmetric Eyes: EOMI, no lid lag, anicteric sclera Mouth: no lip lesion, mucus membranes moist Cardiovascular: S1S2 reg, no murmur, positive posterior tibial pulse bilateral, Lungs: CTA bilateral, no rhonchi, no rales , no accessory muscle use Abdominal: soft, nontender to palpation, no guarding, no appreciable organomegaly Ext: no gross muscle atrophy, no edema, no contractures Neuro: CN II-XI grossly intact, no focal neuro deficits Psych: Alert, oriented, appropriate affect - Labs CBC & Chem 7: 04/22/21 11:30 04/22/21 11:30 Assessment and Plan Assessment: Multiple runs of polymorphic ventricular tachycardia in a patient with history of stroke Patient status post heart catheterization and was found out to have severe 2 vessel coronary artery disease LAD and LCx Patient status post left heart cath, status post successful stenting of the distal LAD with drug-eluting stent., Stenting of distal left circumflex using drug eluting stent. Nonsustained ventricular tachycardia irregular, somewhat polymorphic appearing Patient status post heart catheterization Continue to return to clinic to therapy, beta viktoria and nifedipine statin Coronary artery disease Continue management as above Hypertension, controlled -Continue with meds Dyslipidemia - statin HX of CVA. -Continue medical management as above
[2021-04-24] MEDS: ALPRAZolam 0.5 MG TAB PO PRN (20:02)
[2021-04-25 05:41] VITALS: RESP 16
[2021-04-25] MEDS: TICAGRELOR 90 MG TAB PO SCH (06:16)
[2021-04-25] MEDS: carvediloL 12.5 MG TAB PO SCH (06:17)
[2021-04-25 06:18] LABS: Basophils % (A) 0 %; Eosinophils # (A) 0.1 k/uL (0-0.7); Eosinophils % (A) 1 %; HCT 43.3 % (39.0-53.0); HGB 14.7 gm/dL (13.0-17.5); Lymphocytes # (A) 1.1 k/uL (1.0-4.8); Lymphocytes % (A) 12 %; MCHC 33.9 g/dL (31.0-37.0); MCV 88.6 fL (80.0-100.0); Mean Platelet Volume 7.4; Monocytes # (A) 0.7 k/uL (0-1.0); Monocytes % (A) 7 %; Neutrophils # (A) 7.6 k/uL (1.3-7.7); Neutrophils % (A) 79 %; Platelet Count 171 k/uL (150-450); RBC 4.89 m/uL (4.30-5.90); RDW 12.9 % (11.5-15.5); WBC 9.6 k/uL (3.8-10.6)
[2021-04-25] MEDS: NIFEdipine XL 90 MG TAB.ER.24 PO SCH (06:18)
[2021-04-25] MEDS: ASPIRIN 81 MG PO SCH (06:18)
[2021-04-25 06:28] LABS: African American GFR (CKD) >90 (>60 ml/min/1.73 sqM); Anion Gap 7 mmol/L; Blood Urea Nitrogen 16 mg/dL (9-20); Calcium 9.2 mg/dL (8.4-10.2); Carbon Dioxide 26 mmol/L (22-30); Chloride 103 mmol/L (98-107); Glucose 125 mg/dL (74-99); Non-African American GFR(CKD) >90 (>60 ml/min/1.73 sqM); Potassium 4.3 mmol/L (3.5-5.1); Sodium 136 mmol/L (137-145)
[2021-04-25] MEDS: SODIUM CHLORIDE 0.9% 1,000 ML in EMPTY BAG 1 BAG IV SCH ×2 (07:43→07:46)
[2021-04-25] MEDS: HEPARIN SODIUM,PORCINE/PF 5,000 UNIT/0.5 ML SYRINGE SQ SCH ×2 (07:45→08:02)
[2021-04-25] MEDS ORDERED: NON FORMULARY DRUG (Aspirin Ec 81 MG Tablet.Dr) PO SCH (09:00)
--- NOTE | 2021-04-25 09:28 | P.DS ---
Providers Date of admission: 04/25/21 08:05 Attending physician: Jaron Hernandez MD Consults: 04/22/21 13:41 Consult Physician Urgent Consulting Provider: Cardiology [place] Consult Reason/Comments: Palpitations, runs of V. tach Do you want consulting provider notified?: Yes 04/24/21 09:43 Consult Physician Routine Consulting Provider: Cardiology [place] Consult Reason/Comments: Post Interventional patient Do you want consulting provider notified?: Already Contacted Primary care physician: Wilder Clements Hospital Course: Discharge diagnoses Nonsustained ventricular tachycardia Unstable angina Coronary artery disease Hypertension Hyperlipidemia History of CVA Hospital course summary 45 years old male patient with a history of CVA in July 2020, with previous history of hypertension hyperlipidemia was apparently experiencing palpitation and was placed with a heart monitor as an outpatient. He was noted to have multiple runs of polymorphic ventricular tachycardia, patient was brought into the emergency department and was admitted to hospital medicine service, he went for heart catheterization and is now successful stenting of the LAD and circumflex using drug eluting stent, patient was previously on dual antiplatelet therapy that he will continue, continue lisinopril and carvedilol and high-dose statin, patient is currently stable once cleared by cardiology will be discharged back to home. Patient to follow with primary care physician and cardiology after discharge. Discharge physical examination General: non toxic, no acute distress, alert oriented to time place and person Head: atraumatic, normocephalic, symmetric Eyes: no lid lesion], anicteric sclera Mouth: no lip lesion, mucus membranes moist Cardiovascular: S1S2 reg rate and rhythm, no murmur, no gallop Lungs: Bilateral equal air entry, no wheezing no rhonchi no crackles. Abdominal: soft, nontender to palpation, no guarding, no appreciable organomegaly Ext: no gross muscle atrophy, no edema extremities warm to suppose a positive Neuro: Alert oriented to time place and person, exam grossly nonfocal Patient Condition at Discharge: Stable Plan - Discharge Summary Discharge Rx Participant: Yes New Discharge Prescriptions: Continue lisinopriL 20 mg PO DAILY NIFEdipine [NIFEdipine ER] 90 mg PO DAILY Aspirin EC [Ecotrin Low Dose] 81 mg PO DAILY Atorvastatin Calcium [Lipitor] 80 mg PO HS Ticagrelor [Brilinta] 90 mg PO BID Cetirizine HCl 10 mg PO DAILY PRN PRN Reason: Allergy Symptoms Famotidine 40 mg PO DAILY Carvedilol [Coreg] 12.5 mg PO BID Acetaminophen Tab [Tylenol] 650 mg PO Q4H PRN PRN Reason: Pain Or Fever > 100.5 Discharge Medication List Aspirin EC [Ecotrin Low Dose] 81 mg PO DAILY 08/13/20 [History] Atorvastatin Calcium [Lipitor] 80 mg PO HS 08/13/20 [History] NIFEdipine [NIFEdipine ER] 90 mg PO DAILY 08/13/20 [History] Ticagrelor [Brilinta] 90 mg PO BID 08/13/20 [History] lisinopriL 20 mg PO DAILY 08/13/20 [History] Carvedilol [Coreg] 12.5 mg PO BID 01/03/21 [History] Cetirizine HCl 10 mg PO DAILY PRN 01/03/21 [History] Famotidine 40 mg PO DAILY 01/03/21 [History] Acetaminophen Tab [Tylenol] 650 mg PO Q4H PRN 04/22/21 [History] Follow up Appointment(s)/Referral(s): Thomas Brown MD [STAFF PHYSICIAN] - 2 Weeks Wilder Clements MD [Primary Care Provider] - 1 Week Patient Instructions/Handouts: *[facility] - After Heart Catheterization - Front End Loader Operator Instructions, After Radial Heart Catheterization (GEN) Discharge Disposition: HOME SELF-CARE
[2021-04-25 09:40] VITALS: BP 130/83; PULSE 80; TEMP 98.2
--- NOTE | 2021-04-25 10:07 | P.PN ---
Subjective Progress Note Date: 04/25/21 Principal diagnosis: Coronary artery disease The patient is a pleasant 45-year-old female patient with a history of stroke was seen recently by his primary care physician where he was experiencing symptoms of palpitation. He underwent a 24-hour Holter monitor and that revealed episodes of polymorphic ventricular tachycardia. A heart catheterization was advised. He underwent a heart catheterization which revealed severe 2 vessel CAD involving the LAD and LCx and he underwent successful stenting of both. He was seen this morning. He is asymptomatic from a cardiovascular standpoint of view. He denies any chest pain or chest discomfort or shortness of breath. He is hemodynamically stable. The right radial site is soft and nontender without any bruises. The patient would like to go home. I'm going to discharge the patient on dual antiplatelet therapy and I'll follow-up with him in the office in a week. He is also going to discharge on high intensity statin and beta viktoria with carvedilol Objective - Vital Signs Vital signs: Vital Signs Temp 98.2 F 04/25/21 07:00 Pulse 80 04/25/21 07:00 Resp 16 04/25/21 07:00 BP 130/83 04/25/21 07:00 Pulse Ox 95 04/25/21 07:00 Intake & Output 04/24/21 04/25/21 04/25/21 18:59 06:59 18:59 Intake Total 500 100 Output Total 100 200 Balance 400 -100 Weight 87.09 kg Intake: IV 500 Oral 100 Output: Urine 100 200 Other: Voiding Method Toilet Toilet Urinal Urinal # Voids 3 1 - Constitutional General appearance: Present: no acute distress - Respiratory Respiratory: bilateral: CTA - Cardiovascular Rhythm: regular Heart sounds: normal: S1, S2 - Labs CBC & Chem 7: 04/25/21 05:53 04/25/21 05:53 Labs: Abnormal Lab Results - Last 24 Hours (Table) 04/25/21 Range/Units 05:53 Sodium 136 L (137-145) mmol/L Glucose 125 H (74-99) mg/dL Assessment and Plan Assessment: Assessment #1 coronary artery disease and status post PCI of the LAD and LCx #2 polymorphic ventricular tachycardia likely to be ischemia driven #3 history of stroke Plan #1 the patient can be discharged home #2 continue dual antiplatelet therapy along with high intensity statin along with beta viktoria #3 follow-up with the patient as an outpatient
== END 2021-04-25 11:00 | disposition home or self-care (01) | DRG 247 ==
LOC: EC 10:28 → 6NMEDSUR 12:27 → OBSVTOIN 04-25 08:05
PROVIDERS: ADMIT Internal Medicine; ATTEND Internal Medicine
PROC: 027135Z Dilation of Coronary Artery, Two Arteries with Two Drug-eluting Intraluminal Devices, Percutaneous Approach (ICD-10-PCS; principal; 2021-04-24 07:30)
PROC: 4A023N7 Measurement of Cardiac Sampling and Pressure, Left Heart, Percutaneous Approach (ICD-10-PCS; 2021-04-24 07:30)
PROC: B2111ZZ Fluoroscopy of Multiple Coronary Arteries using Low Osmolar Contrast (ICD-10-PCS; 2021-04-24 07:30)
DX: I47.2 Ventricular tachycardia (principal); I25.110 Atherosclerotic heart disease of native coronary artery with unstable angina pectoris; E78.5 Hyperlipidemia, unspecified; F41.0 Panic disorder [episodic paroxysmal anxiety]; I10 Essential (primary) hypertension; Z20.822 Contact with and (suspected) exposure to COVID-19; Z79.02 Long term (current) use of antithrombotics/antiplatelets; Z79.82 Long term (current) use of aspirin; Z79.899 Other long term (current) drug therapy; Z86.73 Personal history of transient ischemic attack (TIA), and cerebral infarction without residual deficits; Z87.891 Personal history of nicotine dependence; Z98.61 Coronary angioplasty status
CPT/HCPCS: 36415; 71046; 80048; 80053; 80061; 83735; 84443; 84484; 85025; 85379; 85610; 85730; 87635; 93005; 93458; 99285

== ENCOUNTER 2021-04-28 06:21 | Emergency (ER) | payer OTHER ==
--- NOTE | 2021-04-28 06:38 | ED ---
Chest Pain HPI - General Chief Complaint: Chest Pain Stated Complaint: Arrhythmia Time Seen by Provider: 04/28/21 06:26 Source: patient, RN notes reviewed Mode of arrival: ambulatory Limitations: no limitations - History of Present Illness Initial Comments: a 45-year-old male presents emergency Department chief complaint of palpitations, pleuritic chest discomfort. Patient states that he had 2 stents placed was discharged from the hospital on Tuesday. Patient states throughout the night he started having a dry cough states went to the deep breath he had some mild discomfort, burning sensation in his left leg. States is no pain at rest feels like his heart is racing but has no associated pain with that. Patient denies any abdominal pain denies nausea vomiting no fevers or chills. Patient is currently on brilinta , low-dose aspirin. Patient did have heart catheterization performed by Dr. Brown - Related Data Home Medications Medication Instructions Recorded Confirmed Aspirin EC [Ecotrin Low Dose] 81 mg PO DAILY 08/13/20 04/28/21 Atorvastatin Calcium [Lipitor] 80 mg PO HS 08/13/20 04/28/21 NIFEdipine [NIFEdipine ER] 90 mg PO DAILY 08/13/20 04/28/21 Ticagrelor [Brilinta] 90 mg PO BID 08/13/20 04/28/21 lisinopriL 20 mg PO HS 08/13/20 04/28/21 Carvedilol [Coreg] 12.5 mg PO BID 01/03/21 04/28/21 Cetirizine HCl 10 mg PO DAILY PRN 01/03/21 04/28/21 Famotidine 40 mg PO DAILY PRN 01/03/21 04/28/21 Allergies Allergy/AdvReac Type Severity Reaction Status Date / Time Penicillins Allergy Unknown Verified 04/28/21 07:37 Childhood Review of Systems ROS Statement: Those systems with pertinent positive or pertinent negative responses have been documented in the HPI. ROS Other: All systems not noted in ROS Statement are negative. Past Medical History Past Medical History: CVA/TIA, Hyperlipidemia, Hypertension History of Any Multi-Drug Resistant Organisms: None Reported Past Surgical History: Heart Catheterization With Stent, Hernia Repair Additional Past Surgical History / Comment(s): brain thombectomy, possible stent in brain, Past Anesthesia/Blood Transfusion Reactions: No Reported Reaction Past Psychological History: Anxiety, Panic Disorder Smoking Status: Former smoker Past Alcohol Use History: None Reported Past Drug Use History: None Reported - Past Family History Father Family Medical History: Chest Pain / Angina General Exam General appearance: alert, in no apparent distress Head exam: Present: atraumatic, normocephalic, normal inspection Eye exam: Present: normal appearance, PERRL, EOMI. Absent: scleral icterus, conjunctival injection, periorbital swelling ENT exam: Present: normal exam, normal oropharynx, mucous membranes moist Neck exam: Present: normal inspection, full ROM. Absent: tenderness, meningismus, lymphadenopathy Respiratory exam: Present: normal lung sounds bilaterally. Absent: respiratory distress, wheezes, rales, rhonchi, stridor Cardiovascular Exam: Present: regular rate, normal rhythm, normal heart sounds. Absent: systolic murmur, diastolic murmur, rubs, gallop, clicks GI/Abdominal exam: Present: soft, normal bowel sounds. Absent: distended, tenderness, guarding, rebound, rigid Neurological exam: Present: alert, oriented X3, CN II-XII intact. Absent: motor sensory deficit Skin exam: Present: warm, dry, intact, normal color. Absent: rash Course Vital Signs 04/28/21 04/28/21 04/28/21 06:22 07:39 08:34 Temperature 98 F 99.2 F 99.2 F Pulse Rate 84 80 80 Respiratory 19 18 18 Rate Blood Pressure 123/78 122/78 133/84 O2 Sat by Pulse 98 95 97 Oximetry Chest Pain MDM - MDM 45-year-old presented for mild palpitations, cough which is dry and some pain with inspiration d-dimer is negative, patient's positive for COVID-19 did receive monoclonal antibodies. Patient has no typical anginal symptoms patient's troponin was elevated though he is status post stent placement repeat troponin was performed which is down trending and case discussed with Dr. Brown who feels that the patient does not have current symptoms, troponin is down trending may be discharged home. Disposition Clinical Impression: COVID-19 Disposition: HOME SELF-CARE Condition: Stable Instructions (If sedation given, give patient instructions): Coronavirus Disease 2019 (COVID-19) Additional Instructions: Please return to the Emergency Department if symptoms worsen or any other concerns. Is patient prescribed a controlled substance at d/c from ED?: No Referrals: Wilder Clements MD [Primary Care Provider] - 1-2 days Time of Disposition: 09:58
--- NOTE | 2021-04-28 06:52 | XR ---
EXAMINATION TYPE: XR chest 2V DATE OF EXAM: 04/28/2021 COMPARISON: Chest x-ray 6 days ago. HISTORY: Chest pain. TECHNIQUE: Frontal and lateral views of the chest are obtained. FINDINGS: Overlying EKG leads are redemonstrated. There is no new suspicious focal air space opacity , pleural effusion, or pneumothorax seen. The cardiac silhouette size is stable and within normal li mits. The osseous structures are intact. IMPRESSION: No acute process. No significant change from prior.
[2021-04-28 07:01] LABS: Basophils % (A) 0 %; Eosinophils # (A) 0.1 k/uL (0-0.7); Eosinophils % (A) 1 %; HCT 42.9 % (39.0-53.0); HGB 14.6 gm/dL (13.0-17.5); Lymphocytes # (A) 0.5 k/uL (1.0-4.8); Lymphocytes % (A) 5 %; MCHC 34.1 g/dL (31.0-37.0); Mean Platelet Volume 7.5; Monocytes # (A) 0.7 k/uL (0-1.0); Monocytes % (A) 7 %; Neutrophils # (A) 8.1 k/uL (1.3-7.7); Neutrophils % (A) 86 %; Platelet Count 181 k/uL (150-450); RBC 4.88 m/uL (4.30-5.90); WBC 9.4 k/uL (3.8-10.6)
[2021-04-28 07:13] LABS: ALT 50 U/L (4-49); AST 37 U/L (17-59); African American GFR (CKD) >90 (>60 ml/min/1.73 sqM); Albumin 4.5 g/dL (3.5-5.0); Alkaline Phosphatase 103 U/L (38-126); Anion Gap 12 mmol/L; Blood Urea Nitrogen 18 mg/dL (9-20); Calcium 9.4 mg/dL (8.4-10.2); Carbon Dioxide 21 mmol/L (22-30); Chloride 100 mmol/L (98-107); Glucose 147 mg/dL (74-99); Lipase 36 U/L (23-300); Magnesium 2.1 mg/dL (1.6-2.3); Non-African American GFR(CKD) >90 (>60 ml/min/1.73 sqM); Potassium 4.8 mmol/L (3.5-5.1); Sodium 133 mmol/L (137-145); Total Bilirubin 1.2 mg/dL (0.2-1.3); Total Protein 7.2 g/dL (6.3-8.2)
[2021-04-28 07:36] LABS: INR 0.9 (<1.2); Partial Thromboplastin Time 25.4 sec (22.0-30.0); Prothrombin Time 9.9 sec (9.0-12.0)
[2021-04-28 07:41] VITALS: RESP 18; TEMP 99.2
[2021-04-28] MEDS ORDERED: CASIRIVIMAB (REGN10933) (EUA) 600 MG, IMDEVIMAB (REGN10987) (EUA) 600 MG in SODIUM CHLO... IVPB ONE (08:15)
[2021-04-28] MEDS ORDERED: SODIUM CHLORIDE 0.9% 50 ML IVPB ONE (08:15)
[2021-04-28 10:43] VITALS: BP 130/90; PULSE 85
== END 2021-04-28 10:42 | disposition home or self-care (01) ==
LOC: EC 06:21
DX: U07.1 COVID-19 (principal); I10 Essential (primary) hypertension; E78.5 Hyperlipidemia, unspecified; F41.9 Anxiety disorder, unspecified; Z79.82 Long term (current) use of aspirin; Z88.0 Allergy status to penicillin; Z86.73 Personal history of transient ischemic attack (TIA), and cerebral infarction without residual deficits; Z87.891 Personal history of nicotine dependence
CPT/HCPCS: 36415; 71046; 80053; 83690; 83735; 83880; 84484; 85025; 85379; 85610; 85730; 87635; 93005; 99285

== ENCOUNTER 2021-10-05 12:31 | Emergency (ER) | payer OTHER ==
--- NOTE | 2021-10-05 13:23 | ED ---
General Adult HPI - General Chief complaint: Shortness of Breath Stated complaint: SOB Time Seen by Provider: 10/05/21 13:00 Source: patient, RN notes reviewed, old records reviewed Mode of arrival: ambulatory Limitations: no limitations - History of Present Illness Initial comments: This is a 45-year-old male presents emergency Department complaining that he cannot take a deep breath per patient states anytime he does he seems A bit of a cough per patient states it started about 3 hours prior to arrival. Patient states he is not short of breath he is not having chest pain or palpitations. Patient denies any fever chills. Patient states the only time he coughs when he tries to take a really deep breath. Patient states he also has a chronic dry cough secondary to his blood pressure medications. Patient denies any abdominal pain patient denies nausea vomiting diarrhea. Patient has a swollen to the legs or calf tenderness. Rations states this all started when he was walking outside the deep breath. - Related Data Home Medications Medication Instructions Recorded Confirmed Aspirin EC [Ecotrin Low Dose] 81 mg PO DAILY 08/13/20 10/05/21 Atorvastatin Calcium [Lipitor] 80 mg PO HS 08/13/20 10/05/21 NIFEdipine [NIFEdipine ER] 90 mg PO DAILY 08/13/20 10/05/21 Ticagrelor [Brilinta] 90 mg PO BID 08/13/20 10/05/21 lisinopriL 20 mg PO HS 08/13/20 10/05/21 Carvedilol [Coreg] 12.5 mg PO BID 01/03/21 10/05/21 Famotidine 40 mg PO DAILY 01/03/21 10/05/21 Allergies Allergy/AdvReac Type Severity Reaction Status Date / Time Penicillins Allergy Itching Verified 10/05/21 14:14 Review of Systems ROS Statement: Those systems with pertinent positive or pertinent negative responses have been documented in the HPI. ROS Other: All systems not noted in ROS Statement are negative. Past Medical History Past Medical History: CVA/TIA, Hyperlipidemia, Hypertension History of Any Multi-Drug Resistant Organisms: None Reported Past Surgical History: Heart Catheterization With Stent, Hernia Repair Additional Past Surgical History / Comment(s): brain thombectomy, possible stent in brain, Past Anesthesia/Blood Transfusion Reactions: No Reported Reaction Past Psychological History: Anxiety, Panic Disorder Smoking Status: Former smoker Past Alcohol Use History: None Reported Past Drug Use History: None Reported - Past Family History Father Family Medical History: Chest Pain / Angina General Exam - General Exam Comments Initial Comments: GENERAL: Patient is well-developed and well-nourished. Patient is nontoxic and well- hydrated and is in no acute distress. ENT: Neck is soft and supple. No significant lymphadenopathy is noted. Oropharynx is clear. Moist mucous membranes. Neck has full range of motion without eliciting any pain. EYES: The sclera were anicteric and conjunctiva were pink and moist. Extraocular movements were intact and pupils were equal round and reactive to light. Eyelids were unremarkable. PULMONARY: Unlabored respirations. Good breath sounds bilaterally. No audible rales rhonchi or wheezing was noted. CARDIOVASCULAR: There is a regular rate and rhythm without any murmurs gallops or rubs. ABDOMEN: Soft and nontender with normal bowel sounds. No palpable organomegaly was noted. There is no palpable pulsatile mass. SKIN: Skin is clear with no lesions or rashes and otherwise unremarkable. NEUROLOGIC: Patient is alert and oriented x3. Cranial nerves II through XII are grossly intact. Motor and sensory are also intact. Normal speech, volume and content. Symmetrical smile. MUSCULOSKELETAL: Normal extremities with adequate strength and full range of motion. No lower extremity swelling or edema. No calf tenderness. LYMPHATICS: No significant lymphadenopathy is noted PSYCHIATRIC: Normal psychiatric evaluation. Limitations: no limitations Course Vital Signs 10/05/21 10/05/21 12:57 12:59 Temperature 97.4 F L Pulse Rate 71 Respiratory 20 18 Rate Blood Pressure 152/86 O2 Sat by Pulse 98 Oximetry Medical Decision Making - Medical Decision Making EKG shows sinus rhythm at 68 bpm MA interval is 145 QRS is 98 QT interval 35 QTC is 402. Patient's EKG shows no ST segment elevation or depression. Chest x-ray shows no acute abnormality. Patient was actually 100% on room air throughout the duration of the ER stay. Patient was never in any respiratory distress. - Lab Data Result diagrams: 10/05/21 13:27 10/05/21 13:27 Lab Results 10/05/21 10/05/21 10/05/21 Range/Units 13:27 13:27 13:27 WBC 10.4 (3.8-10.6) k/uL RBC 5.25 (4.30-5.90) m/uL Hgb 16.0 (13.0-17.5) gm/dL Hct 46.5 (39.0-53.0) % MCV 88.6 (80.0-100.0) fL MCH 30.4 (25.0-35.0) pg MCHC 34.3 (31.0-37.0) g/dL RDW 13.4 (11.5-15.5) % Plt Count 233 (150-450) k/uL MPV 7.2 Neutrophils % 81 % Lymphocytes % 12 % Monocytes % 5 % Eosinophils % 1 % Basophils % 0 % Neutrophils # 8.4 H (1.3-7.7) k/uL Lymphocytes # 1.2 (1.0-4.8) k/uL Monocytes # 0.5 (0-1.0) k/uL Eosinophils # 0.1 (0-0.7) k/uL Basophils # 0.0 (0-0.2) k/uL Sodium 142 (137-145) mmol/L Potassium 4.4 (3.5-5.1) mmol/L Chloride 104 (98-107) mmol/L Carbon Dioxide 24 (22-30) mmol/L Anion Gap 14 mmol/L BUN 17 (9-20) mg/dL Creatinine 0.84 (0.66-1.25) mg/dL Est GFR (CKD-EPI)AfAm >90 (>60 ml/min/1.73 sqM) Est GFR (CKD-EPI)NonAf >90 (>60 ml/min/1.73 sqM) Glucose 101 H (74-99) mg/dL Calcium 9.4 (8.4-10.2) mg/dL Magnesium 2.1 (1.6-2.3) mg/dL Total Bilirubin 1.2 (0.2-1.3) mg/dL AST 43 (17-59) U/L ALT 76 H (4-49) U/L Alkaline Phosphatase 98 (38-126) U/L Troponin I <0.012 (0.000-0.034) ng/mL Total Protein 8.1 (6.3-8.2) g/dL Albumin 5.0 (3.5-5.0) g/dL Coronavirus (PCR) (Not Detectd) 10/05/21 Range/Units 13:27 WBC (3.8-10.6) k/uL RBC (4.30-5.90) m/uL Hgb (13.0-17.5) gm/dL Hct (39.0-53.0) % MCV (80.0-100.0) fL MCH (25.0-35.0) pg MCHC (31.0-37.0) g/dL RDW (11.5-15.5) % Plt Count (150-450) k/uL MPV Neutrophils % % Lymphocytes % % Monocytes % % Eosinophils % % Basophils % % Neutrophils # (1.3-7.7) k/uL Lymphocytes # (1.0-4.8) k/uL Monocytes # (0-1.0) k/uL Eosinophils # (0-0.7) k/uL Basophils # (0-0.2) k/uL Sodium (137-145) mmol/L Potassium (3.5-5.1) mmol/L Chloride (98-107) mmol/L Carbon Dioxide (22-30) mmol/L Anion Gap mmol/L BUN (9-20) mg/dL Creatinine (0.66-1.25) mg/dL Est GFR (CKD-EPI)AfAm (>60 ml/min/1.73 sqM) Est GFR (CKD-EPI)NonAf (>60 ml/min/1.73 sqM) Glucose (74-99) mg/dL Calcium (8.4-10.2) mg/dL Magnesium (1.6-2.3) mg/dL Total Bilirubin (0.2-1.3) mg/dL AST (17-59) U/L ALT (4-49) U/L Alkaline Phosphatase (38-126) U/L Troponin I (0.000-0.034) ng/mL Total Protein (6.3-8.2) g/dL Albumin (3.5-5.0) g/dL Coronavirus (PCR) Not Detected (Not Detectd) Disposition Clinical Impression: Trouble breathing Disposition: HOME SELF-CARE Condition: Good Instructions (If sedation given, give patient instructions): Shortness of Breath (ED) Is patient prescribed a controlled substance at d/c from ED?: No Referrals: Wilder Clements MD [Primary Care Provider] - 1-2 days Time of Disposition: 14:23
--- NOTE | 2021-10-05 13:49 | XR ---
EXAMINATION TYPE: XR chest 2V DATE OF EXAM: 10/05/2021 COMPARISON: Chest x-ray April 28, 2021 HISTORY: Difficulty in breathing. TECHNIQUE: Frontal and lateral views of the chest are obtained. FINDINGS: There is no new suspicious focal air space opacity, pleural effusion, or pneumothorax seen . The cardiac silhouette size remains within normal limits. The osseous structures are intact. Ove rlying EKG leads redemonstrated. IMPRESSION: No acute process. No significant change from prior.
[2021-10-05 13:50] VITALS: RESP 18
[2021-10-05 13:58] LABS: Basophils % (A) 0 %; Eosinophils # (A) 0.1 k/uL (0-0.7); Eosinophils % (A) 1 %; HCT 46.5 % (39.0-53.0); Lymphocytes # (A) 1.2 k/uL (1.0-4.8); Lymphocytes % (A) 12 %; MCH 30.4 pg (25.0-35.0); MCHC 34.3 g/dL (31.0-37.0); MCV 88.6 fL (80.0-100.0); Mean Platelet Volume 7.2; Monocytes # (A) 0.5 k/uL (0-1.0); Monocytes % (A) 5 %; Neutrophils # (A) 8.4 k/uL (1.3-7.7); Neutrophils % (A) 81 %; Platelet Count 233 k/uL (150-450); RBC 5.25 m/uL (4.30-5.90); RDW 13.4 % (11.5-15.5); WBC 10.4 k/uL (3.8-10.6)
[2021-10-05 14:04] LABS: ALT 76 U/L (4-49); AST 43 U/L (17-59); African American GFR (CKD) >90 (>60 ml/min/1.73 sqM); Alkaline Phosphatase 98 U/L (38-126); Anion Gap 14 mmol/L; Blood Urea Nitrogen 17 mg/dL (9-20); Calcium 9.4 mg/dL (8.4-10.2); Carbon Dioxide 24 mmol/L (22-30); Chloride 104 mmol/L (98-107); Glucose 101 mg/dL (74-99); Magnesium 2.1 mg/dL (1.6-2.3); Non-African American GFR(CKD) >90 (>60 ml/min/1.73 sqM); Potassium 4.4 mmol/L (3.5-5.1); Sodium 142 mmol/L (137-145); Total Bilirubin 1.2 mg/dL (0.2-1.3); Total Protein 8.1 g/dL (6.3-8.2)
[2021-10-05 14:51] VITALS: BP 138/85; PULSE 66; TEMP 98.6
== END 2021-10-05 14:49 | disposition home or self-care (01) ==
LOC: EC 12:31
DX: R06.00 Dyspnea, unspecified (principal); E78.5 Hyperlipidemia, unspecified; I10 Essential (primary) hypertension; F41.9 Anxiety disorder, unspecified; Z79.82 Long term (current) use of aspirin; Z88.0 Allergy status to penicillin; Z86.73 Personal history of transient ischemic attack (TIA), and cerebral infarction without residual deficits; Z87.891 Personal history of nicotine dependence; Z20.822 Contact with and (suspected) exposure to COVID-19
CPT/HCPCS: 36415; 71046; 80053; 83735; 84484; 85025; 87635; 93005; 99285

== ENCOUNTER 2021-12-16 15:23 | Emergency (ER) | payer OTHER ==
[2021-12-16 15:55] VITALS: BP 147/91; PULSE 67; TEMP 98.1
--- NOTE | 2021-12-16 16:17 | ED ---
Allergic Reaction HPI - General Chief complaint: Allergic Reaction Stated complaint: Allergic Reaction Time Seen by Provider: 12/16/21 15:58 Source: patient, RN notes reviewed Mode of arrival: ambulatory Limitations: no limitations - History of Present Illness Initial Comments: Patient is a 46-year-old male presents to the emergency room with his after developing a pruritic rash to his upper extremities after eating lunch today. He reports that this has happened 3 days in a row after eating peanut butter and jelly sandwich for lunch. He denies any difficulty in breathing, tongue or throat swelling, abdominal or chest hives. He reports that he has sensitive skin and typically has some erythema from his morning nifedipine dose. He has seen his primary care provider in the past regarding that. He states that he was concerned about what medications to take for reaction as he is on multiple blood pressure medications and has paradoxical response to both steroids and Benadryl. He does report that he is able to take Zyrtec without any complication. He has a past medical history significant for hypertension, hyperlipidemia, CAD and TIA. He denies any other complaints or concerns this time. - Related Data Home Medications Medication Instructions Recorded Confirmed Aspirin EC [Ecotrin Low Dose] 81 mg PO DAILY 08/13/20 10/05/21 Atorvastatin Calcium [Lipitor] 80 mg PO HS 08/13/20 10/05/21 NIFEdipine [NIFEdipine ER] 90 mg PO DAILY 08/13/20 10/05/21 Ticagrelor [Brilinta] 90 mg PO BID 08/13/20 10/05/21 lisinopriL 20 mg PO HS 08/13/20 10/05/21 Carvedilol [Coreg] 12.5 mg PO BID 01/03/21 10/05/21 Famotidine 40 mg PO DAILY 01/03/21 10/05/21 Allergies Allergy/AdvReac Type Severity Reaction Status Date / Time Penicillins Allergy Itching Verified 12/16/21 15:55 Review of Systems ROS Statement: Those systems with pertinent positive or pertinent negative responses have been documented in the HPI. ROS Other: All systems not noted in ROS Statement are negative. Past Medical History Past Medical History: CVA/TIA, Hyperlipidemia, Hypertension History of Any Multi-Drug Resistant Organisms: None Reported Past Surgical History: Heart Catheterization With Stent, Hernia Repair Additional Past Surgical History / Comment(s): brain thombectomy, possible stent in brain, Past Anesthesia/Blood Transfusion Reactions: No Reported Reaction Past Psychological History: Anxiety, Panic Disorder Smoking Status: Former smoker Past Alcohol Use History: None Reported Past Drug Use History: None Reported - Past Family History Father Family Medical History: Chest Pain / Angina General Exam Limitations: no limitations General appearance: alert, in no apparent distress Head exam: Present: atraumatic, normocephalic, normal inspection Eye exam: Present: normal appearance, PERRL, EOMI. Absent: scleral icterus, conjunctival injection, periorbital swelling ENT exam: Present: normal exam, mucous membranes moist Expanded Mouth exam: Present: tongue normal Throat exam: normal inspection Neck exam: Present: normal inspection. Absent: tenderness, meningismus, lymphadenopathy Respiratory exam: Present: normal lung sounds bilaterally. Absent: respiratory distress, wheezes, rales, rhonchi, stridor Cardiovascular Exam: Present: regular rate, normal rhythm, normal heart sounds. Absent: systolic murmur, diastolic murmur, rubs, gallop, clicks GI/Abdominal exam: Present: soft, normal bowel sounds. Absent: distended, tenderness, guarding, rebound, rigid Extremities exam: Present: normal inspection. Absent: pedal edema, joint swelling Back exam: Present: normal inspection Neurological exam: Present: alert, oriented X3, CN II-XII intact Psychiatric exam: Present: normal affect, normal mood Skin exam: Present: warm, dry, intact, normal color, erythema (Mild erythema in bilateral upper extremities primarily to upper portions. No evidence of maculopapular rash.) Course Vital Signs 12/16/21 15:52 Temperature 98.1 F Pulse Rate 67 Respiratory 18 Rate Blood Pressure 147/91 O2 Sat by Pulse 99 Oximetry Medical Decision Making - Medical Decision Making Vital signs stable. No evidence of respiratory distress, tongue or throat swelling and hives or rash. No indication for any diagnostic imaging or laboratory studies. Patient declines steroids, Benadryl or current antihistamine available of loratadine. Would like to take Zyrtec once he goes home. Patient is agreeable for discharge home on oral Zyrtec with the avoidance of allergen and follow-up with his primary care and possibly an icd 9 coder as needed. Disposition Clinical Impression: Allergic reaction Disposition: HOME SELF-CARE Condition: Good Instructions (If sedation given, give patient instructions): Urticaria (ED) Additional Instructions: Patient encouraged to avoid use of peanut butter and jelly product which has elicited reaction over the last 3 days. Please return to the Emergency Department if symptoms worsen or any other concerns. Is patient prescribed a controlled substance at d/c from ED?: No Referrals: Wilder Clements MD [Primary Care Provider] - 1-2 days Forms: Work/School Release Time of Disposition: 16:20
[2021-12-16 16:39] VITALS: RESP 16
== END 2021-12-16 16:40 | disposition home or self-care (01) ==
LOC: EC 15:23
DX: T78.40XA Allergy, unspecified, initial encounter (principal); I10 Essential (primary) hypertension; E78.5 Hyperlipidemia, unspecified; I25.10 Atherosclerotic heart disease of native coronary artery without angina pectoris; F41.9 Anxiety disorder, unspecified; Z79.82 Long term (current) use of aspirin; Z79.899 Other long term (current) drug therapy; Z86.73 Personal history of transient ischemic attack (TIA), and cerebral infarction without residual deficits; Z87.891 Personal history of nicotine dependence; Z88.0 Allergy status to penicillin
CPT/HCPCS: 99283

== ENCOUNTER 2021-12-26 16:12 | Emergency (ER) | payer OTHER ==
[2021-12-26 16:17] VITALS: BP 135/84; PULSE 82; RESP 16; TEMP 98.5
--- NOTE | 2021-12-26 16:44 | ED ---
General Adult HPI - General Chief complaint: Skin/Abscess/Foreign Body Stated complaint: Bump behind ear Time Seen by Provider: 12/26/21 16:24 Source: patient, RN notes reviewed, old records reviewed Mode of arrival: ambulatory Limitations: no limitations - History of Present Illness Initial comments: 46-year-old male who had noticed a red bump behind his right ear. Patient denies infectious symptoms. States it is mildly tender to the touch. No facial swelling. No fever. - Related Data Home Medications Medication Instructions Recorded Confirmed Aspirin EC [Ecotrin Low Dose] 81 mg PO DAILY 08/13/20 10/05/21 Atorvastatin Calcium [Lipitor] 80 mg PO HS 08/13/20 10/05/21 NIFEdipine [NIFEdipine ER] 90 mg PO DAILY 08/13/20 10/05/21 Ticagrelor [Brilinta] 90 mg PO BID 08/13/20 10/05/21 lisinopriL 20 mg PO HS 08/13/20 10/05/21 Famotidine 40 mg PO DAILY 01/03/21 10/05/21 carvediloL [Coreg] 12.5 mg PO BID 01/03/21 10/05/21 Allergies Allergy/AdvReac Type Severity Reaction Status Date / Time Penicillins Allergy Itching Verified 12/26/21 16:17 Review of Systems ROS Statement: Those systems with pertinent positive or pertinent negative responses have been documented in the HPI. ROS Other: All systems not noted in ROS Statement are negative. Past Medical History Past Medical History: CVA/TIA, Hyperlipidemia, Hypertension History of Any Multi-Drug Resistant Organisms: None Reported Past Surgical History: Heart Catheterization With Stent, Hernia Repair Additional Past Surgical History / Comment(s): brain thombectomy, possible stent in brain, Past Anesthesia/Blood Transfusion Reactions: No Reported Reaction Past Psychological History: Anxiety, Panic Disorder Smoking Status: Former smoker Past Alcohol Use History: None Reported Past Drug Use History: None Reported - Past Family History Father Family Medical History: Chest Pain / Angina General Exam Limitations: no limitations General appearance: alert, in no apparent distress Head exam: Present: atraumatic, normocephalic Eye exam: Present: normal appearance, PERRL ENT exam: Present: other (3 mm hematoma to the back of the right ear minimal punctate area of bleeding which I was able to express out the blood.) Neck exam: Present: normal inspection. Absent: tenderness, meningismus Respiratory exam: Present: normal lung sounds bilaterally. Absent: respiratory distress Cardiovascular Exam: Present: regular rate, normal rhythm GI/Abdominal exam: Present: soft. Absent: distended, tenderness, guarding Extremities exam: Present: normal inspection, normal capillary refill. Absent: pedal edema Course Vital Signs 12/26/21 16:14 Temperature 98.5 F Pulse Rate 82 Respiratory 16 Rate Blood Pressure 135/84 O2 Sat by Pulse 95 Oximetry Medical Decision Making - Medical Decision Making 69-year-old male with 3 mm hematoma behind the right ear, no history of trauma. There is a punctate opening and I was able to express out the blood. There is no signs of concurrent infection. Patient should monitor the site and follow-up with his primary care physician. Disposition Clinical Impression: Hematoma Disposition: HOME SELF-CARE Condition: Good Instructions (If sedation given, give patient instructions): Hematoma (ED) Is patient prescribed a controlled substance at d/c from ED?: No Referrals: Wilder Clements MD [Primary Care Provider] - 1-2 days Time of Disposition: 16:44
== END 2021-12-26 16:53 | disposition home or self-care (01) ==
LOC: EC 16:12
DX: M79.81 Nontraumatic hematoma of soft tissue (principal); E78.5 Hyperlipidemia, unspecified; I10 Essential (primary) hypertension; Z86.73 Personal history of transient ischemic attack (TIA), and cerebral infarction without residual deficits; Z87.891 Personal history of nicotine dependence; Z88.0 Allergy status to penicillin; Z79.899 Other long term (current) drug therapy; Z79.84 Long term (current) use of oral hypoglycemic drugs; Z79.82 Long term (current) use of aspirin
CPT/HCPCS: 99283

== ENCOUNTER 2022-03-17 08:16 | Emergency (ER) | payer OTHER ==
[2022-03-17 08:28] VITALS: TEMP 98.1
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
[2022-03-17 10:10] VITALS: BP 124/84; PULSE 97; RESP 18
== END 2022-03-17 10:20 | disposition home or self-care (01) ==
LOC: EC 08:16
DX: R51.9 Headache, unspecified (principal); E78.5 Hyperlipidemia, unspecified; I10 Essential (primary) hypertension; Z86.73 Personal history of transient ischemic attack (TIA), and cerebral infarction without residual deficits; Z87.891 Personal history of nicotine dependence; Z88.0 Allergy status to penicillin; V89.2XXA Person injured in unspecified motor-vehicle accident, traffic, initial encounter
CPT/HCPCS: 70450; 99284

== ENCOUNTER 2022-06-06 06:43 | Emergency (ER) | payer OTHER ==
[2022-06-06] MEDS ORDERED: ACETAMINOPHEN TAB 325 MG TAB PO STA (07:06)
--- NOTE | 2022-06-06 07:13 | ED ---
General Adult HPI <Clive Gregorio - Last Filed: 06/06/22 08:30> - General Source: patient, RN notes reviewed Mode of arrival: ambulatory Limitations: no limitations <Rama Zuluaga - Last Filed: 06/06/22 08:33> - General Chief complaint: Upper Respiratory Infection Stated complaint: Fever Time Seen by Provider: 06/06/22 06:55 - History of Present Illness Initial comments: 46 year old male with history of stroke and HI coming in to the ED for cough x 3 days. Admits to accompanied symptoms of fever, fatigue, palpitations. Has tried Tylenol and Motrin with no relief. He was seen at urgent care yesterday for same, and was given a prescription for doxycycline. Denies chest pain, nausea, vomiting, diarrhea, abdominal pain. (Rama Zuluaga) - Related Data Home Medications Medication Instructions Recorded Confirmed Aspirin EC [Ecotrin Low Dose] 81 mg PO DAILY 08/13/20 10/05/21 Atorvastatin Calcium [Lipitor] 80 mg PO HS 08/13/20 10/05/21 NIFEdipine [Adalat CC] 90 mg PO DAILY 08/13/20 10/05/21 Ticagrelor [Brilinta] 90 mg PO BID 08/13/20 10/05/21 lisinopriL 20 mg PO HS 08/13/20 10/05/21 Famotidine 40 mg PO DAILY 01/03/21 10/05/21 carvediloL [Coreg] 12.5 mg PO BID 01/03/21 10/05/21 Previous Rx's Medication Instructions Recorded Molnupiravir [Lagevrio (Eua)] 800 mg PO BID 5 Days #40 cap 06/06/22 Allergies Allergy/AdvReac Type Severity Reaction Status Date / Time Penicillins Allergy Itching Verified 06/06/22 06:52 Review of Systems ROS Other: All systems not noted in ROS Statement are negative. <Clive Gregorio - Last Filed: 06/06/22 08:30> ROS Other: All systems not noted in ROS Statement are negative. <Rama Zuluaga - Last Filed: 06/06/22 08:33> ROS Statement: Those systems with pertinent positive or pertinent negative responses have been documented in the HPI. Past Medical History Past Medical History: CVA/TIA, Hyperlipidemia, Hypertension History of Any Multi-Drug Resistant Organisms: None Reported Past Surgical History: Heart Catheterization With Stent, Hernia Repair Additional Past Surgical History / Comment(s): brain thombectomy, possible stent in brain, Past Anesthesia/Blood Transfusion Reactions: No Reported Reaction Past Psychological History: Anxiety, Panic Disorder Smoking Status: Former smoker Past Alcohol Use History: None Reported Past Drug Use History: None Reported - Past Family History Father Family Medical History: Chest Pain / Angina <Rama Zuluaga - Last Filed: 06/06/22 08:33> General Exam Limitations: no limitations General appearance: alert, in no apparent distress Head exam: Present: atraumatic, normocephalic, normal inspection Eye exam: Present: normal appearance, PERRL, EOMI. Absent: scleral icterus, conjunctival injection, periorbital swelling Neck exam: Present: normal inspection. Absent: tenderness, meningismus, lymphadenopathy Respiratory exam: Present: normal lung sounds bilaterally Cardiovascular Exam: Present: regular rate, normal rhythm, normal heart sounds. Absent: systolic murmur, diastolic murmur, rubs, gallop, clicks GI/Abdominal exam: Present: soft, normal bowel sounds. Absent: distended, tenderness, guarding, rebound, rigid Neurological exam: Present: alert, oriented X3, CN II-XII intact Psychiatric exam: Present: normal affect, normal mood Skin exam: Present: warm, dry, intact, normal color. Absent: rash <Rama Zuluaga - Last Filed: 06/06/22 08:33> Course Vital Signs 06/06/22 06/06/22 06:51 07:53 Temperature 99.9 F H Pulse Rate 95 Respiratory 18 24 Rate Blood Pressure 139/91 O2 Sat by Pulse 95 Oximetry Medical Decision Making - Lab Data Result diagrams: 06/06/22 07:45 06/06/22 07:45 <Clive Gregorio - Last Filed: 06/06/22 08:30> - Lab Data Result diagrams: 06/06/22 07:45 06/06/22 07:45 <Rama Zuluaga - Last Filed: 06/06/22 08:33> - Medical Decision Making 46-year-old male coming in for cough or congestion. Patient had x-ray and lab work done, x-ray negative for acute process. Lab work unremarkable, positive for COVID-19. Pt was given tylenol and 500mL fluids with symptomatic improvement in the ED. Results discussed with patient all questions answered. Pt discharged in stable condition. Case discussed with Dr. Gregorio. ([facility]) - Lab Data Lab Results 06/06/22 06/06/22 06/06/22 Range/Units 07:45 07:45 07:51 WBC 6.9 (3.8-10.6) k/uL RBC 4.79 (4.30-5.90) m/uL Hgb 14.7 (13.0-17.5) gm/dL Hct 41.2 (39.0-53.0) % MCV 86.0 (80.0-100.0) fL MCH 30.7 (25.0-35.0) pg MCHC 35.7 (31.0-37.0) g/dL RDW 13.2 (11.5-15.5) % Plt Count 127 L (150-450) k/uL MPV 8.1 Neutrophils % 74 % Lymphocytes % 12 % Monocytes % 10 % Eosinophils % 1 % Basophils % 1 % Neutrophils # 5.1 (1.3-7.7) k/uL Lymphocytes # 0.8 L (1.0-4.8) k/uL Monocytes # 0.7 (0-1.0) k/uL Eosinophils # 0.1 (0-0.7) k/uL Basophils # 0.0 (0-0.2) k/uL Sodium 137 (137-145) mmol/L Potassium 4.2 (3.5-5.1) mmol/L Chloride 103 (98-107) mmol/L Carbon Dioxide 25 (22-30) mmol/L Anion Gap 9 mmol/L BUN 13 (9-20) mg/dL Creatinine 0.85 (0.66-1.25) mg/dL Est GFR (CKD-EPI)AfAm >90 (>60 ml/min/1.73 sqM) Est GFR (CKD-EPI)NonAf >90 (>60 ml/min/1.73 sqM) Glucose 137 H (74-99) mg/dL Calcium 8.3 L (8.4-10.2) mg/dL Coronavirus (PCR) (Not Detectd) Influenza Type A RNA Not Detected (Not Detectd) Influenza Type B (PCR) Not Detected (Not Detectd) 06/06/22 Range/Units 07:51 WBC (3.8-10.6) k/uL RBC (4.30-5.90) m/uL Hgb (13.0-17.5) gm/dL Hct (39.0-53.0) % MCV (80.0-100.0) fL MCH (25.0-35.0) pg MCHC (31.0-37.0) g/dL RDW (11.5-15.5) % Plt Count (150-450) k/uL MPV Neutrophils % % Lymphocytes % % Monocytes % % Eosinophils % % Basophils % % Neutrophils # (1.3-7.7) k/uL Lymphocytes # (1.0-4.8) k/uL Monocytes # (0-1.0) k/uL Eosinophils # (0-0.7) k/uL Basophils # (0-0.2) k/uL Sodium (137-145) mmol/L Potassium (3.5-5.1) mmol/L Chloride (98-107) mmol/L Carbon Dioxide (22-30) mmol/L Anion Gap mmol/L BUN (9-20) mg/dL Creatinine (0.66-1.25) mg/dL Est GFR (CKD-EPI)AfAm (>60 ml/min/1.73 sqM) Est GFR (CKD-EPI)NonAf (>60 ml/min/1.73 sqM) Glucose (74-99) mg/dL Calcium (8.4-10.2) mg/dL Coronavirus (PCR) Detected A (Not Detectd) Influenza Type A RNA (Not Detectd) Influenza Type B (PCR) (Not Detectd) Disposition <Clive Gregorio - Last Filed: 06/06/22 08:30> Is patient prescribed a controlled substance at d/c from ED?: No Time of Disposition: 08:21 <Rama Zuluaga - Last Filed: 06/06/22 08:33> Clinical Impression: COVID-19 Disposition: HOME SELF-CARE Additional Instructions: Please return to the ED if worsening cough or shortness of breath. Prescriptions: Molnupiravir [Lagevrio (Eua)] 800 mg PO BID 5 Days #40 cap Referrals: Wilder Clements MD [Primary Care Provider] - 1-2 days
[2022-06-06] MEDS ORDERED: SODIUM CHLORIDE 0.9% 500 ML 500 ML IV ONE (07:18)
--- NOTE | 2022-06-06 07:31 | XR ---
EXAMINATION TYPE: XR chest 2V DATE OF EXAM: 06/06/2022 7:27 AM COMPARISON: Chest radiographs from 10/05/2021 TECHNIQUE: XR chest 2V Frontal and lateral views of the chest. CLINICAL INDICATION:Male, 46 years old with history of Cough; FINDINGS: Lungs/Pleura: There is no evidence of pleural effusion, focal consolidation, or pneumothorax. Pulmonary vascularity: Unremarkable. Heart/mediastinum: Cardiomediastinal silhouette is unremarkable. Musculoskeletal: No acute osseous pathology. IMPRESSION: No acute cardiopulmonary disease/process.
[2022-06-06 07:56] LABS: Basophils % (A) 1 %; Eosinophils # (A) 0.1 k/uL (0-0.7); Eosinophils % (A) 1 %; HCT 41.2 % (39.0-53.0); HGB 14.7 gm/dL (13.0-17.5); Lymphocytes # (A) 0.8 k/uL (1.0-4.8); Lymphocytes % (A) 12 %; MCH 30.7 pg (25.0-35.0); MCHC 35.7 g/dL (31.0-37.0); Mean Platelet Volume 8.1; Monocytes # (A) 0.7 k/uL (0-1.0); Monocytes % (A) 10 %; Neutrophils # (A) 5.1 k/uL (1.3-7.7); Neutrophils % (A) 74 %; Platelet Count 127 k/uL (150-450); RBC 4.79 m/uL (4.30-5.90); RDW 13.2 % (11.5-15.5); WBC 6.9 k/uL (3.8-10.6)
[2022-06-06 08:06] LABS: African American GFR (CKD) >90 (>60 ml/min/1.73 sqM); Anion Gap 9 mmol/L; Blood Urea Nitrogen 13 mg/dL (9-20); Calcium 8.3 mg/dL (8.4-10.2); Carbon Dioxide 25 mmol/L (22-30); Chloride 103 mmol/L (98-107); Glucose 137 mg/dL (74-99); Non-African American GFR(CKD) >90 (>60 ml/min/1.73 sqM); Potassium 4.2 mmol/L (3.5-5.1); Sodium 137 mmol/L (137-145)
[2022-06-06 08:59] VITALS: BP 132/84; PULSE 90; RESP 18; TEMP 99
== END 2022-06-06 08:59 | disposition home or self-care (01) ==
LOC: EC 06:43
DX: U07.1 COVID-19 (principal); Z86.73 Personal history of transient ischemic attack (TIA), and cerebral infarction without residual deficits; I10 Essential (primary) hypertension; E78.5 Hyperlipidemia, unspecified; F41.9 Anxiety disorder, unspecified; Z87.891 Personal history of nicotine dependence; Z88.0 Allergy status to penicillin; Z79.82 Long term (current) use of aspirin; Z79.899 Other long term (current) drug therapy; Z20.822 Contact with and (suspected) exposure to COVID-19
CPT/HCPCS: 36415; 71046; 80048; 85025; 87502; 87635; 96360; 99284

== ENCOUNTER → 2022-11-10 | Outpatient (CLI) | payer OTHER ==
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
== END | disposition home or self-care (01) ==
LOC: RADUSWWP 11:48
PROVIDERS: ATTEND Family Medicine
DX: M79.661 Pain in right lower leg (principal)

== ENCOUNTER 2023-12-19 08:17 | Emergency (ER) | payer BC, OTHER ==
[2023-12-19 08:22] VITALS: RESP 18; TEMP 97.6
[2023-12-19 09:00] LABS: Basophils # (A) 0.1 k/uL (0-0.2); Basophils % (A) 1 %; Eosinophils # (A) 0.2 k/uL (0-0.7); Eosinophils % (A) 1 %; HCT 44.4 % (39.0-53.0); HGB 15.1 gm/dL (13.0-17.5); Lymphocytes # (A) 1.5 k/uL (1.0-4.8); Lymphocytes % (A) 13 %; MCH 29.5 pg (25.0-35.0); MCV 86.7 fL (80.0-100.0); Mean Platelet Volume 7.7; Monocytes # (A) 0.5 k/uL (0-1.0); Monocytes % (A) 5 %; Neutrophils # (A) 8.9 k/uL (1.3-7.7); Neutrophils % (A) 79 %; Platelet Count 188 k/uL (150-450); RBC 5.13 m/uL (4.30-5.90); RDW 13.1 % (11.5-15.5); WBC 11.2 k/uL (3.8-10.6)
--- NOTE | 2023-12-19 09:02 | ED ---
General Adult HPI - General Chief complaint: Chest Pain Stated complaint: chest pain Time Seen by Provider: 12/19/23 08:20 Source: patient, RN notes reviewed, old records reviewed Mode of arrival: ambulatory Limitations: no limitations - History of Present Illness Initial comments: 48-year-old male history of CVA, CAD status post stenting in 2020 presenting with central chest pain radiating to the left shoulder. Patient's symptoms began approximately 4 hours prior to arrival. Patient states he was diaphoretic. No vomiting. No significant dyspnea. Patient is currently on 81 mg of aspirin, no other antiplatelet or anticoagulant currently. He does state pain is similar to previous [place]. - Related Data Home Medications Medication Instructions Recorded Confirmed Aspirin EC [Ecotrin Low Dose] 81 mg PO DAILY 08/13/20 12/19/23 NIFEdipine [Adalat CC] 90 mg PO DAILY 08/13/20 12/19/23 lisinopriL 20 mg PO DAILY 08/13/20 12/19/23 Famotidine 40 mg PO DAILY PRN 01/03/21 12/19/23 carvediloL [Coreg] 12.5 mg PO BID 01/03/21 12/19/23 Atorvastatin [Lipitor] 40 mg PO HS 12/19/23 12/19/23 Cetirizine HCl [Zyrtec] 10 mg PO DAILY PRN 12/19/23 12/19/23 Olopatadine HCl [Pataday Twice 1 drop BOTH EYES BID 12/19/23 12/19/23 Daily Relief] Allergies Allergy/AdvReac Type Severity Reaction Status Date / Time Penicillins Allergy Itching/Hiv Verified 12/19/23 09:58 es Review of Systems ROS Statement: Those systems with pertinent positive or pertinent negative responses have been documented in the HPI. ROS Other: All systems not noted in ROS Statement are negative. Past Medical History Past Medical History: CVA/TIA, Hyperlipidemia, Hypertension History of Any Multi-Drug Resistant Organisms: None Reported Past Surgical History: Heart Catheterization With Stent, Hernia Repair Additional Past Surgical History / Comment(s): brain thombectomy, possible stent in brain, Past Anesthesia/Blood Transfusion Reactions: No Reported Reaction Past Psychological History: Anxiety, Panic Disorder Smoking Status: Former smoker Past Alcohol Use History: None Reported Past Drug Use History: None Reported - Past Family History Father Family Medical History: Chest Pain / Angina General Exam Limitations: no limitations General appearance: alert, in no apparent distress Head exam: Present: atraumatic, normocephalic Eye exam: Present: normal appearance, PERRL ENT exam: Present: normal exam Respiratory exam: Present: normal lung sounds bilaterally. Absent: respiratory distress, wheezes Cardiovascular Exam: Present: regular rate, normal rhythm GI/Abdominal exam: Present: soft. Absent: distended, tenderness, guarding Extremities exam: Present: normal inspection, normal capillary refill. Absent: pedal edema, calf tenderness Neurological exam: Present: alert, oriented X3, CN II-XII intact. Absent: motor sensory deficit Skin exam: Present: warm, dry, intact. Absent: cyanosis, diaphoretic Course Vital Signs 12/19/23 08:18 Temperature 97.6 F Pulse Rate 78 Respiratory 18 Rate Blood Pressure 139/81 O2 Sat by Pulse 98 Oximetry Medical Decision Making - Medical Decision Making Was pt. sent in by a medical professional or institution (, PA, CRITICAL CARE CLINICAL NURSE SPECIALIST, urgent care, hospital, or retirement...) When possible be specific @ -No Did you speak to anyone other than the patient for history (EMS, parent, family, police, friend...)? What history was obtained from this source @ -No Did you review nursing and triage notes (agree or disagree)? Why? @ -I reviewed and agree with nursing and triage notes Were old charts reviewed (outside hosp., previous admission, EMS record, old EKG, old radiological studies, urgent care reports/EKG's, retirement records)? Report findings @ -No old charts were reviewed Differential Diagnosis (chest pain, altered mental status, abdominal pain women, abdominal pain men, vaginal bleeding, weakness, fever, dyspnea, syncope, headache, dizziness, GI bleed, back pain, seizure, CVA, palpatations, mental health, musculoskeletal)? @ -Not applicable EKG interpreted by me (3pts min.). @ -EKG: Sinus rhythm rate of 74, MD interval 159, QRS duration 99, QTc [address] segment elevation, artifact in V2 limiting assessment. X-rays interpreted by me (1pt min.). @Chest x-ray negative for acute cardiopulmonary findings. CT interpreted by me (1pt min.). @ -None done U/S interpreted by me (1pt. min.). @ -None done What testing was considered but not performed or refused? (CT, X-rays, U/S, labs)? Why? @ -None What meds were considered but not given or refused? Why? @ -None Did you discuss the management of the patient with other professionals (professionals i.e. , PA, CRITICAL CARE CLINICAL NURSE SPECIALIST, lab, RT, psych nurse, social services technician, avionic technician, teacher, airfield engineer officer, case advocate)? Give summary @ - Was smoking cessation discussed for >3mins.? @ -No Was critical care preformed (if so, how long)? @ -No Were there social determinants of health that impacted care today? How? (Homelessness, low income, unemployed, alcoholism, drug addiction, transportation, low edu. Level, literacy, decrease access to med. care, halfway, rehab)? @ -No Was there de-escalation of care discussed even if they declined (Discuss DNR or withdrawal of care, Hospice)? DNR status @ -No What co-morbidities impacted this encounter? (DM, HTN, Smoking, COPD, CAD, Cancer, CVA, ARF, Chemo, Hep., AIDS, mental health diagnosis, sleep apnea, morbid obesity)? @ -CVA, CAD Was patient admitted / discharged? Hospital course, mention meds given and route, prescriptions, significant lab abnormalities, going to OR and other pertinent info. @48-year-old male history of CAD presenting with chest pain rating to the left shoulder. EKG is sinus rhythm without ST segment changes. Chest x-ray is clear. He has normal CBC, normal CMP, negative initial troponin. Given the patient's risk factors my plan was to admit this patient for serial cardiac enzymes, cardiology consultation however the patient states he feels better and wishes to be discharged. He does agree with repeat cardiac enzyme at 3 hours. This is obtained and is again negative. Patient feels better and is eager for discharge. Undiagnosed new problem with uncertain prognosis? @ -No Drug Therapy requiring intensive monitoring for toxicity (Heparin, Nitro, Insulin, Cardizem)? @ -No Were any procedures done? @ -No Diagnosis/symptom? @ -Chest pain Acute, or Chronic, or Acute on Chronic? @Acute Uncomplicated (without systemic symptoms) or Complicated (systemic symptoms)? @ -Default Side effects of treatment? @ -No Exacerbation, Progression, or Severe Exacerbation? @ -No Poses a threat to life or bodily function? How? (Chest pain, [place], [place], pneumonia, PE, COPD, DKA, ARF, appy, cholecystitis, CVA, Diverticulitis, Homicidal, Suicidal, threat to staff... and all critical care pts) @Low risk at this time - Lab Data Result diagrams: 12/19/23 08:52 12/19/23 08:52 Lab Results 12/19/23 12/19/23 12/19/23 Range/Units 08:52 08:52 08:52 WBC 11.2 H (3.8-10.6) k/uL RBC 5.13 (4.30-5.90) m/uL Hgb 15.1 (13.0-17.5) gm/dL Hct 44.4 (39.0-53.0) % MCV 86.7 (80.0-100.0) fL MCH 29.5 (25.0-35.0) pg MCHC 34.0 (31.0-37.0) g/dL RDW 13.1 (11.5-15.5) % Plt Count 188 (150-450) k/uL MPV 7.7 Neutrophils % 79 % Lymphocytes % 13 % Monocytes % 5 % Eosinophils % 1 % Basophils % 1 % Neutrophils # 8.9 H (1.3-7.7) k/uL Lymphocytes # 1.5 (1.0-4.8) k/uL Monocytes # 0.5 (0-1.0) k/uL Eosinophils # 0.2 (0-0.7) k/uL Basophils # 0.1 (0-0.2) k/uL PT 9.9 L (10.0-12.5) sec INR 0.9 (<1.2) APTT 25.1 (22.0-30.0) sec Sodium 139 (137-145) mmol/L Potassium 4.4 (3.5-5.1) mmol/L Chloride 107 (98-107) mmol/L Carbon Dioxide 24 (22-30) mmol/L Anion Gap 8 mmol/L BUN 16 (9-20) mg/dL Creatinine 0.74 (0.66-1.25) mg/dL Est GFR (CKD-EPI)AfAm >90 (>60 ml/min/1.73 sqM) Est GFR (CKD-EPI)NonAf >90 (>60 ml/min/1.73 sqM) Glucose 140 H (74-99) mg/dL Calcium 8.7 (8.4-10.2) mg/dL Magnesium 1.9 (1.6-2.3) mg/dL Total Bilirubin 0.8 (0.2-1.3) mg/dL AST 47 (17-59) U/L ALT 82 H (4-49) U/L Alkaline Phosphatase 133 H (38-126) U/L Troponin I (0.000-0.034) ng/mL Total Protein 7.3 (6.3-8.2) g/dL Albumin 4.5 (3.5-5.0) g/dL 12/19/23 12/19/23 Range/Units 08:52 10:50 WBC (3.8-10.6) k/uL RBC (4.30-5.90) m/uL Hgb (13.0-17.5) gm/dL Hct (39.0-53.0) % MCV (80.0-100.0) fL MCH (25.0-35.0) pg MCHC (31.0-37.0) g/dL RDW (11.5-15.5) % Plt Count (150-450) k/uL MPV Neutrophils % % Lymphocytes % % Monocytes % % Eosinophils % % Basophils % % Neutrophils # (1.3-7.7) k/uL Lymphocytes # (1.0-4.8) k/uL Monocytes # (0-1.0) k/uL Eosinophils # (0-0.7) k/uL Basophils # (0-0.2) k/uL PT (10.0-12.5) sec INR (<1.2) APTT (22.0-30.0) sec Sodium (137-145) mmol/L Potassium (3.5-5.1) mmol/L Chloride (98-107) mmol/L Carbon Dioxide (22-30) mmol/L Anion Gap mmol/L BUN (9-20) mg/dL Creatinine (0.66-1.25) mg/dL Est GFR (CKD-EPI)AfAm (>60 ml/min/1.73 sqM) Est GFR (CKD-EPI)NonAf (>60 ml/min/1.73 sqM) Glucose (74-99) mg/dL Calcium (8.4-10.2) mg/dL Magnesium (1.6-2.3) mg/dL Total Bilirubin (0.2-1.3) mg/dL AST (17-59) U/L ALT (4-49) U/L Alkaline Phosphatase (38-126) U/L Troponin I <0.012 <0.012 (0.000-0.034) ng/mL Total Protein (6.3-8.2) g/dL Albumin (3.5-5.0) g/dL Disposition Clinical Impression: Chest pain Disposition: HOME SELF-CARE Condition: Good Instructions (If sedation given, give patient instructions): Chest Pain (ED) Is patient prescribed a controlled substance at d/c from ED?: No Referrals: Wilder Clements MD [Primary Care Provider] - 1-2 days Time of Disposition: 11:30
[2023-12-19 09:14] LABS: INR 0.9 (<1.2); Partial Thromboplastin Time 25.1 sec (22.0-30.0); Prothrombin Time 9.9 sec (10.0-12.5)
[2023-12-19 09:15] LABS: ALT 82 U/L (4-49); AST 47 U/L (17-59); African American GFR (CKD) >90 (>60 ml/min/1.73 sqM); Albumin 4.5 g/dL (3.5-5.0); Alkaline Phosphatase 133 U/L (38-126); Anion Gap 8 mmol/L; Blood Urea Nitrogen 16 mg/dL (9-20); Calcium 8.7 mg/dL (8.4-10.2); Carbon Dioxide 24 mmol/L (22-30); Chloride 107 mmol/L (98-107); Glucose 140 mg/dL (74-99); Magnesium 1.9 mg/dL (1.6-2.3); Non-African American GFR(CKD) >90 (>60 ml/min/1.73 sqM); Potassium 4.4 mmol/L (3.5-5.1); Sodium 139 mmol/L (137-145); Total Bilirubin 0.8 mg/dL (0.2-1.3); Total Protein 7.3 g/dL (6.3-8.2)
--- NOTE | 2023-12-19 09:18 | XR ---
EXAMINATION TYPE: XR chest 2V DATE OF EXAM: 12/19/2023 9:13 AM CLINICAL INDICATION:Male, 48 years old with history of Chest Pain; COMPARISON: Chest radiographs from06/06/2022 TECHNIQUE: XR chest 2V Frontal and lateral views of the chest. FINDINGS: Lungs/Pleura: There is no evidence of pleural effusion, focal consolidation, or pneumothorax. Pulmonary vascularity: Unremarkable. Heart/mediastinum: Cardiomediastinal silhouette is unremarkable. Musculoskeletal: No acute osseous pathology. IMPRESSION: No acute cardiopulmonary disease/process.
[2023-12-19] MEDS ORDERED: ONDANSETRON 4 MG/2 ML VIAL IVP PRN (09:50)
[2023-12-19] MEDS ORDERED: ACETAMINOPHEN TAB 325 MG TAB PO PRN (09:50)
[2023-12-19] MEDS ORDERED: MORPHINE SULFATE 4 MG/ML SYRINGE IV PRN (09:50)
[2023-12-19] MEDS ORDERED: NALOXONE 0.4 MG/ML 1 ML VIAL IV PRN (09:50)
[2023-12-19] MEDS: ASPIRIN 325 MG TAB PO STA (10:15)
[2023-12-19] MEDS: LORazepam 1 MG TAB PO STA (10:27)
[2023-12-19 11:55] VITALS: BP 122/74; PULSE 74
== END 2023-12-19 12:27 | disposition home or self-care (01) ==
LOC: EC 08:17 → 6NMEDSUR 09:51 → UNDOADMOB 09:51 → EC 12:27
DX: R07.89 Other chest pain (principal); I25.10 Atherosclerotic heart disease of native coronary artery without angina pectoris; Z88.0 Allergy status to penicillin; Z95.5 Presence of coronary angioplasty implant and graft; Z87.891 Personal history of nicotine dependence; Z86.73 Personal history of transient ischemic attack (TIA), and cerebral infarction without residual deficits
CPT/HCPCS: 36415; 71046; 80053; 83735; 84484; 85025; 85610; 85730; 93005; 99285

== ENCOUNTER 2024-03-11 23:05 | Emergency (ER) | payer OTHER ==
[2024-03-11 23:09] VITALS: TEMP 97.5
[2024-03-11 23:24] VITALS: BP 160/100; PULSE 64; RESP 16
--- NOTE | 2024-03-11 23:26 | ED ---
General Adult HPI - General Chief complaint: Chest Pain Stated complaint: Chest pain Time Seen by Provider: 03/11/24 23:18 Source: patient Mode of arrival: ambulatory Limitations: no limitations - History of Present Illness Initial comments: Dictation was produced using [employer] dictation software. please excuse any grammatical, word or spelling errors. Chief Complaint: 48-year-old male with history of coronary artery disease disease and coronary artery stents presents with chest pain x 1 hour History of Present Illness: Patient is a 48-year-old male he has history of coronary artery disease states that he has 2 stents. Patient states that he was at home when all of a sudden he started to have some substernal chest pain set up to stand. Patient states that his symptoms feel like when he had heart attack in the past. Patient states the pain radiates slightly to his back. Denies any symptoms to his arms or shoulder. No associated diaphoresis or nausea. The ROS documented in this emergency department record has been reviewed and confirmed by me. Those systems with pertinent positive or negative responses have been documented in the HPI. All other systems are other negative and/or noncontributory. - Related Data Home Medications Medication Instructions Recorded Confirmed Aspirin EC [Ecotrin Low Dose] 81 mg PO DAILY 08/13/20 12/19/23 NIFEdipine [Adalat CC] 90 mg PO DAILY 08/13/20 12/19/23 lisinopriL 20 mg PO DAILY 08/13/20 12/19/23 Famotidine 40 mg PO DAILY PRN 01/03/21 12/19/23 carvediloL [Coreg] 12.5 mg PO BID 01/03/21 12/19/23 Atorvastatin [Lipitor] 40 mg PO HS 12/19/23 12/19/23 Cetirizine HCl [Zyrtec] 10 mg PO DAILY PRN 12/19/23 12/19/23 Olopatadine HCl [Pataday Twice 1 drop BOTH EYES BID 12/19/23 12/19/23 Daily Relief] Allergies Allergy/AdvReac Type Severity Reaction Status Date / Time Penicillins Allergy Itching/Hiv Verified 03/11/24 23:09 es Review of Systems ROS Statement: Those systems with pertinent positive or pertinent negative responses have been documented in the HPI. ROS Other: All systems not noted in ROS Statement are negative. Past Medical History Past Medical History: CVA/TIA, Hyperlipidemia, Hypertension History of Any Multi-Drug Resistant Organisms: None Reported Past Surgical History: Heart Catheterization With Stent, Hernia Repair Additional Past Surgical History / Comment(s): brain thombectomy, possible stent in brain, Past Anesthesia/Blood Transfusion Reactions: No Reported Reaction Past Psychological History: Anxiety, Panic Disorder Smoking Status: Former smoker Past Alcohol Use History: None Reported Past Drug Use History: None Reported - Past Family History Father Family Medical History: Chest Pain / Angina General Exam - General Exam Comments Initial Comments: PHYSICAL EXAM: General Impression: Alert and oriented x3, not in acute distress HEENT: Normocephalic atraumatic, extra-ocular movements intact, pupils equal and reactive to light bilaterally, mucous membranes moist. Cardiovascular: Heart regular rate and rhythm Chest: Able to complete full sentences, no retractions, no tachypnea Abdomen: abdomen soft, non-tender, non-distended, no organomegaly Musculoskeletal: Pulses present and equal in all extremities, no peripheral edema Motor: no focal deficits noted Neurological: CN II-XII grossly intact, no focal motor or sensory deficits noted Skin: Intact with no visualized rashes Psych: Normal affect and mood Limitations: no limitations Course Vital Signs 03/11/24 03/11/24 23:06 23:20 Temperature 97.5 F L Pulse Rate 66 64 Respiratory 18 16 Rate Blood Pressure 154/92 160/100 O2 Sat by Pulse 98 99 Oximetry EKG Findings - EKG Comments: EKG Findings:: My EKG interpretation: Ventricular rate 63, sinus rhythm, VT interval 146, cures 92, QTc 397. No VT prolongation, no QTC prolongation, no ST or T-wave changes noted. Overall, this EKG is unremarkable Medical Decision Making - Medical Decision Making Was pt. sent in by a medical professional or institution (, PA, CROP PICKER, urgent care, hospital, or group home...) When possible be specific @ -No Did you speak to anyone other than the patient for history (EMS, parent, family, police, friend...)? What history was obtained from this source @ -No Did you review nursing and triage notes (agree or disagree)? Why? @ -I reviewed and agree with nursing and triage notes Were old charts reviewed (outside hosp., previous admission, EMS record, old EKG, old radiological studies, urgent care reports/EKG's, group home records)? Report findings @ -No old charts were reviewed Differential Diagnosis (chest pain, altered mental status, abdominal pain women, abdominal pain men, vaginal bleeding, musculoskeletal, weakness, fever, dyspnea, syncope, headache, dizziness, GI bleed, back pain, seizure, CVA, palpatations, mental health)? @ -Differential Chest Pain: Stable Angina, Unstable Angina, STEMI, NSTEMI Aortic Dissection, Pneumothorax, Musculoskeletal, Esophageal Spasm GERD, Cholecystitis, Pancreatitis, Zoster, this is not meant to be an all-inclusive list. EKG interpreted by me (3pts min.). @ -See above X-rays interpreted by me (1pt min.). @ -Chest x-ray is nonacute CT interpreted by me (1pt min.). @ -None done U/S interpreted by me (1pt. min.). @ -None done What testing was considered but not performed or refused? (CT, X-rays, U/S, labs)? Why? @ -None What meds were considered but not given or refused? Why? @ -None Was smoking cessation discussed for >3mins.? @ -No Were there social determinants of health that impacted care today? How? (Homelessness, low income, unemployed, alcoholism, drug addiction, transpor tation, low edu. Level, literacy, decrease access to med. care, custodial, rehab)? @ -No Was there de-escalation of care discussed even if they declined (Discuss DNR or withdrawal of care, Hospice)? DNR status @ -No What co-morbidities impacted this encounter? (DM, HTN, Smoking, COPD, CAD, Cancer, CVA, ARF, Chemo, Hep., AIDS, mental health diagnosis, sleep apnea, morbid obesity)? @ -Coronary artery disease Was patient admitted / discharged? Hospital course, mention meds given and route, prescriptions, significant lab abnormalities, going to OR and other pertinent info. @ -48-year-old male presents to the emergency department with atypical chest pain typical features. He does have extensive history of coronary artery disease including 2 coronary artery stents. He also mentioned that his pain feels like previous heart attack. He does appear well no acute distress. Vital signs are stable. EKG is unremarkable. Labs and imaging are negative. Troponin is negative. Discussed with patient that he has an elevated heart score of 4 and the recommendations that he be admitted observation for serial troponins. There was a disturbing patient in the room next-door patient was upset and wanted to be discharged. He understands that not complete and that he may be harboring a small heart attack which could turn into a major adverse cardiac event. He understands would like to be discharged. He states that his told him that he is probably having an anxiety attack. Patient understands the risk of discharge. Precautions discussed. Did you discuss the management of the patient with other professionals (professionals i.e. , PA, CROP PICKER, lab, RT, psych nurse, social work associate, fisher diving, teacher, unemployment insurance hearing officer, case management associate)? Give summary @ -No Was critical care preformed (if so, how long)? @ -No Undiagnosed new problem with uncertain prognosis? @ -No Drug Therapy requiring intensive monitoring for toxicity (Heparin, Nitro, Insulin, Cardizem)? @ -No Were any procedures done? @ -No Diagnosis/symptom? Acute, or Chronic, or Acute on Chronic? Uncomplicated (without systemic symptoms) or Complicated (systemic symptoms)? @ -Chest pain Side effects of treatment? @ -No Exacerbation, Progression, or Severe Exacerbation? @ -No Poses a threat to life or bodily function? How? (Chest pain, [place], [place], pneumonia, PE, COPD, DKA, ARF, appy, cholecystitis, CVA, Diverticulitis, Homicidal, Suicidal, threat to staff... and all critical care pts) @ -yes - Lab Data Result diagrams: 03/11/24 23:45 03/11/24 23:45 Lab Results 03/11/24 03/11/24 03/11/24 Range/Units 23:45 23:45 23:45 WBC 7.8 (3.8-10.6) k/uL RBC 4.93 (4.30-5.90) m/uL Hgb 15.0 (13.0-17.5) gm/dL Hct 42.9 (39.0-53.0) % MCV 87.0 (80.0-100.0) fL MCH 30.4 (25.0-35.0) pg MCHC 34.9 (31.0-37.0) g/dL RDW 12.4 (11.5-15.5) % Plt Count 177 (150-450) k/uL MPV 7.2 Neutrophils % 69 % Lymphocytes % 20 % Monocytes % 6 % Eosinophils % 2 % Basophils % 1 % Neutrophils # 5.4 (1.3-7.7) k/uL Lymphocytes # 1.6 (1.0-4.8) k/uL Monocytes # 0.5 (0-1.0) k/uL Eosinophils # 0.2 (0-0.7) k/uL Basophils # 0.1 (0-0.2) k/uL PT 10.0 (10.0-12.5) sec INR 0.9 (<1.2) APTT 25.8 (22.0-30.0) sec Sodium 136 L (137-145) mmol/L Potassium 4.3 (3.5-5.1) mmol/L Chloride 102 (98-107) mmol/L Carbon Dioxide 24 (22-30) mmol/L Anion Gap 10 mmol/L BUN 22 H (9-20) mg/dL Creatinine 1.78 H (0.66-1.25) mg/dL Est GFR (CKD-EPI)AfAm 51 (>60 ml/min/1.73 sqM) Est GFR (CKD-EPI)NonAf 44 (>60 ml/min/1.73 sqM) Glucose 180 H (74-99) mg/dL Calcium 9.1 (8.4-10.2) mg/dL Magnesium 1.8 (1.6-2.3) mg/dL Total Bilirubin 0.8 (0.2-1.3) mg/dL AST 31 (17-59) U/L ALT 47 (4-49) U/L Alkaline Phosphatase 110 (38-126) U/L Troponin I (0.000-0.034) ng/mL Total Protein 7.2 (6.3-8.2) g/dL Albumin 4.5 (3.5-5.0) g/dL Lipase 67 (23-300) U/L 03/11/24 Range/Units 23:45 WBC (3.8-10.6) k/uL RBC (4.30-5.90) m/uL Hgb (13.0-17.5) gm/dL Hct (39.0-53.0) % MCV (80.0-100.0) fL MCH (25.0-35.0) pg MCHC (31.0-37.0) g/dL RDW (11.5-15.5) % Plt Count (150-450) k/uL MPV Neutrophils % % Lymphocytes % % Monocytes % % Eosinophils % % Basophils % % Neutrophils # (1.3-7.7) k/uL Lymphocytes # (1.0-4.8) k/uL Monocytes # (0-1.0) k/uL Eosinophils # (0-0.7) k/uL Basophils # (0-0.2) k/uL PT (10.0-12.5) sec INR (<1.2) APTT (22.0-30.0) sec Sodium (137-145) mmol/L Potassium (3.5-5.1) mmol/L Chloride (98-107) mmol/L Carbon Dioxide (22-30) mmol/L Anion Gap mmol/L BUN (9-20) mg/dL Creatinine (0.66-1.25) mg/dL Est GFR (CKD-EPI)AfAm (>60 ml/min/1.73 sqM) Est GFR (CKD-EPI)NonAf (>60 ml/min/1.73 sqM) Glucose (74-99) mg/dL Calcium (8.4-10.2) mg/dL Magnesium (1.6-2.3) mg/dL Total Bilirubin (0.2-1.3) mg/dL AST (17-59) U/L ALT (4-49) U/L Alkaline Phosphatase (38-126) U/L Troponin I <0.012 (0.000-0.034) ng/mL Total Protein (6.3-8.2) g/dL Albumin (3.5-5.0) g/dL Lipase (23-300) U/L Disposition Clinical Impression: Chest pain Disposition: HOME SELF-CARE Condition: Fair Instructions (If sedation given, give patient instructions): Chest Pain (ED) Is patient prescribed a controlled substance at d/c from ED?: No Referrals: Wilder Clements MD [Primary Care Provider] - 1-2 days Time of Disposition: 00:33
[2024-03-11] MEDS: ASPIRIN 81 MG PO STA (23:28)
[2024-03-11] MEDS: NITROGLYCERIN SL TABS 0.4 MG TAB SUBLINGUAL STA (23:29)
[2024-03-11 23:53] LABS: Basophils # (A) 0.1 k/uL (0-0.2); Basophils % (A) 1 %; Eosinophils # (A) 0.2 k/uL (0-0.7); Eosinophils % (A) 2 %; HCT 42.9 % (39.0-53.0); Lymphocytes # (A) 1.6 k/uL (1.0-4.8); Lymphocytes % (A) 20 %; MCH 30.4 pg (25.0-35.0); MCHC 34.9 g/dL (31.0-37.0); Mean Platelet Volume 7.2; Monocytes # (A) 0.5 k/uL (0-1.0); Monocytes % (A) 6 %; Neutrophils # (A) 5.4 k/uL (1.3-7.7); Neutrophils % (A) 69 %; Platelet Count 177 k/uL (150-450); RBC 4.93 m/uL (4.30-5.90); RDW 12.4 % (11.5-15.5); WBC 7.8 k/uL (3.8-10.6)
[2024-03-12 00:03] LABS: ALT 47 U/L (4-49); AST 31 U/L (17-59); African American GFR (CKD) 51 (>60 ml/min/1.73 sqM); Albumin 4.5 g/dL (3.5-5.0); Alkaline Phosphatase 110 U/L (38-126); Anion Gap 10 mmol/L; Blood Urea Nitrogen 22 mg/dL (9-20); Calcium 9.1 mg/dL (8.4-10.2); Carbon Dioxide 24 mmol/L (22-30); Chloride 102 mmol/L (98-107); Glucose 180 mg/dL (74-99); Lipase 67 U/L (23-300); Magnesium 1.8 mg/dL (1.6-2.3); Non-African American GFR(CKD) 44 (>60 ml/min/1.73 sqM); Potassium 4.3 mmol/L (3.5-5.1); Sodium 136 mmol/L (137-145); Total Bilirubin 0.8 mg/dL (0.2-1.3); Total Protein 7.2 g/dL (6.3-8.2)
[2024-03-12 00:26] LABS: INR 0.9 (<1.2); Partial Thromboplastin Time 25.8 sec (22.0-30.0)
--- NOTE | 2024-03-12 01:49 | XR ---
EXAM: XR Chest, 2 Views CLINICAL HISTORY: ITS.REASON XR Reason: Chest Pain TECHNIQUE: Frontal and lateral views of the chest. COMPARISON: No relevant prior studies available. FINDINGS: Lungs: Unremarkable. No consolidation. Pleural space: Unremarkable. No pneumothorax. Heart: Unremarkable. No cardiomegaly. Mediastinum: Unremarkable. Normal mediastinal contour. Bones/joints: Unremarkable. No acute fracture. IMPRESSION: Normal chest x-rays.
== END 2024-03-12 00:47 | disposition home or self-care (01) ==
LOC: EC 23:05
CPT/HCPCS: 36415; 71046; 80053; 83690; 83735; 84484; 85025; 85610; 85730; 93005; 99285

== ENCOUNTER 2024-08-31 17:56 | Emergency (ER) | payer OTHER ==
[2024-08-31 18:08] VITALS: RESP 18; TEMP 98.2
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
[2024-08-31 19:06] LABS: Basophils % (A) 1 %; Eosinophils # (A) 0.1 k/uL (0-0.7); Eosinophils % (A) 1 %; HCT 45.7 % (39.0-53.0); HGB 15.1 gm/dL (13.0-17.5); Lymphocytes # (A) 1.5 k/uL (1.0-4.8); Lymphocytes % (A) 18 %; MCH 29.2 pg (25.0-35.0); MCHC 33.1 g/dL (31.0-37.0); MCV 88.1 fL (80.0-100.0); Mean Platelet Volume 7.1; Monocytes # (A) 0.5 k/uL (0-1.0); Monocytes % (A) 6 %; Neutrophils # (A) 6.2 k/uL (1.3-7.7); Neutrophils % (A) 73 %; Platelet Count 186 k/uL (150-450); RBC 5.18 m/uL (4.30-5.90); RDW 12.6 % (11.5-15.5); WBC 8.5 k/uL (3.8-10.6)
[2024-08-31 19:07] LABS: ALT 67 U/L (4-49); AST 35 U/L (17-59); African American GFR (CKD) >90 (>60 ml/min/1.73 sqM); Albumin 4.6 g/dL (3.5-5.0); Alkaline Phosphatase 107 U/L (38-126); Anion Gap 9 mmol/L; Blood Urea Nitrogen 17 mg/dL (9-20); Carbon Dioxide 26 mmol/L (22-30); Chloride 100 mmol/L (98-107); Glucose 120 mg/dL (74-99); Non-African American GFR(CKD) >90 (>60 ml/min/1.73 sqM); Potassium 4.2 mmol/L (3.5-5.1); Sodium 135 mmol/L (137-145); Total Bilirubin 0.9 mg/dL (0.2-1.3); Total Protein 7.5 g/dL (6.3-8.2)
[2024-08-31 20:46] LABS: Amphetamine Screen,Urine Not Detected (NotDetected); Barbiturate Screen,Urine Not Detected (NotDetected); Benzodiazepines Screen,Urine Not Detected (NotDetected); Cocaine Screen,Urine Not Detected (NotDetected); Methadone Screen, Urine Not Detected (NotDetected); Opiate Screen,Urine Not Detected (NotDetected); Oxycodone Screen, Urine Not Detected (NotDetected); Phencyclidine Screen,Urine Not Detected (NotDetected); Tricyclic Antidepressant,Urine Not Detected (NotDetected); Urn Cannabinoid Scrn Not Detected (NotDetected)
[2024-08-31] MEDS: ASPIRIN 325 MG TAB PO STA (22:34)
[2024-08-31 23:09] VITALS: BP 164/99; PULSE 84
== END 2024-08-31 23:09 | disposition home or self-care (01) ==
LOC: EC 17:56
DX: R51.9 Headache, unspecified (principal); Z86.73 Personal history of transient ischemic attack (TIA), and cerebral infarction without residual deficits; Z87.891 Personal history of nicotine dependence; Z88.0 Allergy status to penicillin
CPT/HCPCS: 36415; 80053; 80306; 82075; 85025; 93005; 99284

== ENCOUNTER 2025-02-01 10:30 | Emergency (ER) | payer OTHER ==
[2025-02-01 10:41] VITALS: RESP 18
--- NOTE | 2025-02-01 10:54 | ED ---
Upper Extremity HPI - General Chief Complaint: Extremity Injury, Upper Stated Complaint: L arm injury Time Seen by Provider: 02/01/25 10:42 Source: patient, RN notes reviewed Mode of arrival: ambulatory Limitations: no limitations - History of Present Illness Initial Comments: This is a 49-year-old male who presents to the emergency department for a left elbow injury. Patient states that 4 days ago he did something to injure his left elbow and felt like it popped in and out. He has since had pain to this area and is unable to flex or extend his arm. He did have x-rays done when this first happened which were negative. He was told by his primary care provider that he likely popped the elbow in and out and tore the surrounding ligaments in the process. He was advised to go to the emergency department for more advanced imaging. MD Complaint: Injury to:: left, elbow - Related Data Home Medications Medication Instructions Recorded Confirmed Aspirin EC [Ecotrin Low Dose] 81 mg PO DAILY 08/13/20 08/31/24 carvediloL [Coreg] 12.5 mg PO BID 01/03/21 08/31/24 Atorvastatin [Lipitor] 40 mg PO HS 12/19/23 08/31/24 Lisinopril-Hctz 20-12.5 mg 1 tab PO HS 08/31/24 08/31/24 [Zestoretic 20-12.5] NIFEdipine XL [Procardia Xl] 30 mg PO DAILY 08/31/24 08/31/24 Previous Rx's Medication Instructions Recorded Diclofenac Sodium [Voltaren] 75 mg PO BID PRN #30 tab 02/01/25 Allergies Allergy/AdvReac Type Severity Reaction Status Date / Time Penicillins Allergy Itching/Hiv Verified 02/01/25 10:41 es Review of Systems ROS Statement: Those systems with pertinent positive or pertinent negative responses have been documented in the HPI. ROS Other: All systems not noted in ROS Statement are negative. Past Medical History Past Medical History: CVA/TIA, Hyperlipidemia, Hypertension History of Any Multi-Drug Resistant Organisms: None Reported Past Surgical History: Heart Catheterization With Stent, Hernia Repair Additional Past Surgical History / Comment(s): brain thombectomy, possible stent in brain, Past Anesthesia/Blood Transfusion Reactions: No Reported Reaction Past Psychological History: Anxiety, Panic Disorder Smoking Status: Former smoker Past Alcohol Use History: None Reported Past Drug Use History: None Reported - Past Family History Father Family Medical History: Chest Pain / Angina General Exam Limitations: no limitations General appearance: alert, in no apparent distress Head exam: Present: atraumatic, normocephalic, normal inspection Respiratory exam: Present: normal lung sounds bilaterally. Absent: respiratory distress, wheezes, rales, rhonchi, stridor Cardiovascular Exam: Present: regular rate, normal rhythm Extremities exam: Present: other (Tenderness to palpation over the left elbow. Range of motion of the left upper extremity is limited by pain. Mild swelling to the left upper extremity. 2+ radial pulses.) Neurological exam: Present: alert, oriented X3, CN II-XII intact Psychiatric exam: Present: normal affect, normal mood Course Vital Signs 02/01/25 02/01/25 10:37 12:45 Temperature 97.9 F 98 F Pulse Rate 75 72 Respiratory 18 18 Rate Blood Pressure 154/84 149/82 O2 Sat by Pulse 97 98 Oximetry Medical Decision Making - Medical Decision Making This is a 49-year-old male who presents to the emergency department for a left arm injury. Was pt. sent in by a medical professional or institution? @ -No Did you speak to anyone other than the patient for history? @ -No Did you review nursing and triage notes? @ -Yes, and I agree, it is accurate with regards to the patient's symptoms. Were old charts reviewed? @ -No Differential Diagnosis? @ -Differential Musculoskeletal Muscular strain, contusion, ligament sprain, fracture, arthritis, septic arthritis, bursitis, cellulitis, muscle spasm, nerve compression, DVT, arterial occlusion, herpes zoster, electrolyte abnormality, tumor.... This is not meant to be in all inclusive list EKG interpreted by me (3pts min.)? @ -Not obtained X-rays interpreted by me (1pt min.)? @ -Not obtained CT interpreted by me (1pt min.)? @ -CT scan of the left elbow obtained. My interpretation identifies no fra ctures. U/S interpreted by me (1pt. min.)? @ -Not obtained What testing was considered but not performed? (CT, X-rays, U/S, labs)? Why? @ -None What meds were considered but not given? Why? @ -None Did you discuss the management of the patient with other professionals? @ -No Did you reconcile home meds? @ -No Was smoking cessation discussed for >3mins.? @ -No Was critical care preformed (if so, how long)? @ -No Were there social determinants of health that impacted care today? How? (Homelessness, low income, unemployed, alcoholism, drug addiction, transportation, low edu. Level, literacy, decrease access to med. care, nursing home, rehab)? @ -No Was there de-escalation of care discussed even if they declined? (Discuss DNR or withdrawal of care, Hospice)? @ -No What co-morbidities impacted this encounter? (DM, HTN, Smoking, COPD, CAD, Cancer, CVA, Hep., AIDS, mental health diagnosis, sleep apnea, morbid obesity)? @ -None Was patient admitted / discharged? @ -Discharged. CT scan of the left elbow obtained demonstrating mild soft tissue edema and they advised correlation for olecranon bursitis. There are a lso signs of calcific tendinosis. Findings reviewed with the patient. Diclofenac prescribed for pain control. Also advised he avoid leaning his elbow on surfaces and continue to wear his arm sling. Information for orthopedic follow-up provided. He is advised to contact them for a follow-up appointment and further evaluation. Patient discharged home in stable condition. Case discussed with ED attending Dr. San. Return precautions reviewed in depth, the patient is instructed to return to the emergency department with any new, worsening, or concerning symptoms. Patient verbalized understanding. Undiagnosed new problem with uncertain prognosis? @ -None Drug Therapy requiring intensive monitoring for toxicity (Heparin, Nitro, Insulin, Cardizem)? @ -None Were any procedures done? @ -None Diagnosis/symptom? @ -Olecranon bursitis of left elbow, calcific tendinosis Acute, or Chronic, or Acute on Chronic? @ -Acute Uncomplicated (without systemic symptoms) or Complicated (systemic symptoms)? @ -Uncomplicated Side effects of treatment? @ -None Exacerbation, Progression, or Severe Exacerbation] @ -Not applicable Poses a threat to life or bodily function? @ -No - Radiology Data Radiology results: report reviewed, image reviewed Disposition Clinical Impression: Olecranon bursitis, left elbow, Calcific tendinitis of left elbow Disposition: HOME SELF-CARE Instructions (If sedation given, give patient instructions): Elbow Bursitis (ED), Elbow Sprain (ED) Additional Instructions: Return to the emergency department with any new, worsening, or concerning symptoms. Begin taking the diclofenac twice daily. You may take this with Tylenol, however do not take it with any other anti-inflammatories such as ibuprofen. The orthopedic office will call you this afternoon with an appointment. Prescriptions: Diclofenac Sodium [Voltaren] 75 mg PO BID PRN #30 tab PRN Reason: Pain Is patient prescribed a controlled substance at d/c from ED?: No Referrals: Wilder Clements MD [Primary Care Provider] - 1-2 days Hal Cool DO [Doctor of Osteopathic Medicine] - 1-2 days (Office will be calling you this afternoon regarding appointment. If do not hear by Tuesday please call office. ) Time of Disposition: 12:36
--- NOTE | 2025-02-01 11:49 | CT ---
EXAMINATION TYPE: CT elbow LT wo con DATE OF EXAM: 02/01/2025 COMPARISON: None CLINICAL INDICATION: Male, 49 years old with history of Injury, negative x-rays, cannot move arm; [facility] , Left elbow pain after injury. CT DLP: 240.7 mGycm Automated exposure control for dose reduction was used. FINDINGS: Well-corticated density adjacent to the lateral epicondyles appears to be related to remote trauma. C alcific tendinosis in the differential diagnosis. Small olecranon spur. Small spur of the coronoid pr ocess of the olecranon. No acute fracture. No dislocation. If there is concern for tendinous or ligamentous injury correlate with MRI. Mild soft tissue edema posteriorly correlate clinically. 2 punctate areas of hyperdensity i n the region most likely chronic. IMPRESSION: 1. Mild soft tissue edema adjacent to the olecranon. Correlate for olecranon bursitis. Tiny punctate areas of calcification or bony density in the adjacent soft tissues could be related to calcific tend inosis rather than tiny avulsion fracture of indeterminate age. Correlate clinically. If there is con cern for tendinous injury or ligamentous injury correlate with MRI. [facility], , 02/01/2025 11:46 AM
[2025-02-01 12:47] VITALS: BP 149/82; PULSE 72; TEMP 98
== END 2025-02-01 12:47 | disposition home or self-care (01) ==
LOC: EC 10:30
DX: M70.22 Olecranon bursitis, left elbow (principal); Z87.891 Personal history of nicotine dependence; Z88.0 Allergy status to penicillin
CPT/HCPCS: 99283